=== PATIENT | female | born 1960 | race Caucasian/White ===

== ENCOUNTER 2020-09-02 09:42 | Inpatient (IN) | payer MEDICAID ==
[~2020-09-02] VITALS: Ht 167.7 cm; Wt 133.4 kg
[2020-09-02] MEDS ORDERED: guaiFENesin/CODEINE (ROBITUSSIN AC) 10ML UDC PO PRN (10:30)
[2020-09-02] MEDS ORDERED: FLEET ENEMA ADULT 1 EA BTL PR PRN (10:30)
[2020-09-02] MEDS ORDERED: ACETAMINOPHEN 500 MG TAB (TYLENOL) PO PRN (10:30)
[2020-09-02] MEDS ORDERED: ALPRAZolam 0.25 MG (XANAX) TAB PO PRN (10:30)
[2020-09-02] MEDS ORDERED: LOPERAMIDE 2 MG (IMODIUM) TABLET PO PRN (10:30)
[2020-09-02] MEDS ORDERED: diphenhydrAMINE 25 MG TAB (BENADRYL) PO PRN (10:30)
[2020-09-02] MEDS ORDERED: MELATONIN 3 MG TABLET PO PRN (10:30)
[2020-09-02] MEDS ORDERED: LACTULOSE SYRUP 10GM/15ML (ENULOSE) 30ML UDC PO PRN (10:30)
[2020-09-02] MEDS ORDERED: DOCUSATE SODIUM 100 MG (COLACE) CAP PO PRN (10:30)
[2020-09-02] MEDS ORDERED: ONDANSETRON 4 MG (ZOFRAN) ORAL DISSOLVE TAB PO PRN (10:30)
[2020-09-02] MEDS ORDERED: BISACODYL 10 MG SUPP (DULCOLAX) PR PRN (10:30)
[2020-09-02] MEDS ORDERED: CALCIUM CARBONATE 500 MG (TUMS) TAB.CHEW PO PRN (10:30)
[2020-09-03] MEDS: polyethylene glycoL POWDER 17 GM (MIRALAX) PACK PO SCH ×2 (08:53→20:01)
[2020-09-03] MEDS: ENOXAPARIN 40 MG/0.4 ML (LOVENOX) SYR SC SCH ×2 (08:54→21:05)
[2020-09-03] MEDS ORDERED: SEVE800T7 PO (11:14)
[2020-09-03] MEDS ORDERED: AMIO200T6 PO (11:14)
[2020-09-03] MEDS ORDERED: OMEG1CAP58 PO (11:14)
[2020-09-03] MEDS ORDERED: TORS20TA3 PO (11:14)
[2020-09-03] MEDS ORDERED: FAMO20TA3 PO (11:14)
[2020-09-03] MEDS ORDERED: MAGN400T50 PO (11:14)
[2020-09-03] MEDS ORDERED: ATOR20TA66 PO (11:14)
[2020-09-03] MEDS ORDERED: ACET-2267 PO (11:14)
[2020-09-03] MEDS ORDERED: NF-SODBICA PO (11:14)
[2020-09-03] MEDS ORDERED: METO-333 PO (11:14)
[2020-09-03] MEDS ORDERED: LIRA0.6P SQ (11:14)
[2020-09-03] MEDS ORDERED: CHOL500044 PO (11:14)
[2020-09-03] MEDS ORDERED: FOLIC ACID PO (11:14)
--- NOTE | 2020-09-03 11:18 | NUR ---
THE MED REC HAS BEEN ENTERED USING THE DISCHARGE ORDERS FROM [facility]- AFTER MEDICATIONS ARE CONTINUED I WILL SPEAK WITH THE PT AND MAKE ANY CHANGES TO THE MED REC/NOTES IF NEEDED
--- NOTE | 2020-09-03 13:39 | Progress Note ---
KASSY GOTTI MED STUDENT 09/03/20 1339: Progress Note Per review of outside records, Lizzie Erickson is a 60 YO female with history of Afib, aortic regurgitation, aortic stenosis, ascending aortic aneurysm, neuropathy, obesity, CKD, HTN, HLD, CVA, DM, and hypothyroidism who had aortic valve and ascending aorta replacement on 08/22 at [facility] in [place]. She is Jain, so she was given epogen for the operation. Pt's quaker does not allow RBC's, platelets, or FFP to be transfused, but cryoprecipitate, factor concentrate, and recombinant factor 7a are acceptable. Other surgical history includes cholecystectomy, hysterectomy, thyroid surgery, spine surgery, and tonsillectomy. After pt's surgery on 08/22, she had decreased balance, functional mobility, ADL independence, and safe judgment during ADL's. She required some assistance with standing up and with going to the bathroom. She normally walks with a Rollator walker at home but does have a wheelchair. After surgery, she was able to ambulate some with her walker with PT following behind with wheelchair. Pt is not able to ambulate as much as normal because she becomes fatigued and short of breath. She can tolerate less than 10 minutes of activity without change in vitals. Pt is from [place] and is agreeable with inpatient rehab at [facility] to regain strength, mobility, and independence. ASHLEY STEVE DO 09/03/20 [id number]: Supervisory-Addendum Brief Verification & Attestation Participated in pt care: history, MDM, physical Personally performed: exam, history, MDM, supervision of care Care discussed with: Medical Student Procedures: n/a Results interpretation: Verified all documentation Verification and Attestation of Medical Student E/M Service A medical student performed and documented this service in my presence. I reviewed and verified all information documented by the medical student and made modifications to such information, when appropriate. I personally performed the physical exam and medical decision making. Ashley Steve, Sep 03, 2020,21:05 KASSY GOTTI MED STUDENT Sep 03, 2020 13:39 ASHLEY STEVE DO Sep 03, 2020 21:05
--- NOTE | 2020-09-03 16:28 | NUR ---
Lizzie "Joseph Erickson admitted to room 230-1, with an admitting diagnosis of Thoracic Aortic Aneurism , on 09/03/20 from [facility] in [place], [place] via private vehicle, accompanied by .LIZZIE ERICKSON introduced to surroundings, call light, bed controls, phone, TV, temperature control, lights, meal times, smoking policy, visitor policy, side rail policy, bathrooms and showers. Patient Rights given to patient in the handbook.LIZZIE ERICKSON verbalizes understanding that [facility] is not responsible for the loss or damage to any personal effects or valuables that are kept in the patients posession during their hospitalization. The following Patient Care Plans were discussed with the : Discharge Planning,Impaired Mobility. LIZZIE ERICKSON verbalizes understanding of Interdisciplinary Patient Education. Patient and/or family were informed about the Rapid Response Team and its purpose. Patient received Patient Rights Booklet, which includes Privacy Act Statement and Data Collection Information Summary.
[2020-09-03 16:40] VITALS: BP 130/67
--- NOTE | 2020-09-03 16:54 | PM&R Post Admission Assessment ---
PM&R HP Date of Visit: Sep 03, 2020 Time of Visit: 17:00 History of Present Illness CC: Debility following complex CVS surgery HPI: This is a 60yoWF clinic patient of Juvencio Estevez MD in [place] who presents following a complex CVS surgery on 08/22/20 at [facility] in [place], [place]. Her case is even more complex given her oriental orthodox of JW and declines all red blood cell transfusions. Currently her pain is tolerable and I have continued all meds from previous hospital stay. BM moved the day before. Using IS. Patient needs to work on stamina and increasing ambulatory abilities. Hospital records from [facility] per ROBB SiegelII: Per review of outside records, Lizzie Erickson is a 60 YO female with history of Afib, aortic regurgitation, aortic stenosis, ascending aortic aneurysm, neuropathy, obesity, CKD, HTN, HLD, CVA, DM, and hypothyroidism who had aortic valve and ascending aorta replacement on 08/22 at [facility] in [place]. She is Oriental orthodox, so she was given epogen for the operation. Pt's oriental orthodox does not allow RBC's, platelets, or FFP to be transfused, but cryoprecipitate, factor concentrate, and recombinant factor 7a are acceptable. Other surgical history includes cholecystectomy, hysterectomy, thyroid surgery, spine surgery, and tonsillectomy. After pt's surgery on 08/22, she had decreased balance, functional mobility, ADL independence, and safe judgment during ADL's. She required some assistance with standing up and with going to the bathroom. She normally walks with a Rollator walker at home but does have a wheelchair. After surgery, she was able to ambulate some with her walker with PT following behind with wheelchair. Pt is not able to ambulate as much as normal because she becomes fatigued and short of breath. She can tolerate less than 10 minutes of activity without change in vitals. Pt is from [place] and is agreeable with inpatient rehab at [facility] to regain strength, mobility, and independence. Past Ouahwll-Yronnw-Uqjqnk Hx Past Med/Social Hx: Reviewed Nursing Past Med/Soc Hx, Reviewed and Corrections made Patient Social History Marrital Status: Employed/Student: retired ([employer]) Alcohol Use: Denies Use Smoking Status: Never a Smoker Past Medical History Surgeries: Cardiac (08/22/20) Cardiac: Atrial Fibrillation, High Cholesterol, Hypertension, Valvular Heart Disease Neurological: Neuropathy Genitourinary: Renal Failure Gastrointestinal: Gastroesophageal Reflux Musculoskeletal: Arthritis Endocrine: Hypothyroidsim, Diabetes, Non-Insulin dep PM&R Allergy/Meds/Data Review Allergies Coded Allergies: No Allergy Information Available (Unverified , 09/02/20) Home Medications Scheduled Amiodarone HCl (Amiodarone HCl), 200 MG PO BID, (Reported) Atorvastatin Calcium (Atorvastatin Calcium), 20 MG PO DAILY, (Reported) Cholecalciferol (Vitamin D3) (Vitamin D3), 125 MCG PO DAILY, (Reported) Famotidine (Acid Nail Puller (FAMOTIDINE)), 40 MG PO HS, (Reported) Liraglutide (Victoza 2-Wilmer), 1.2 MG SQ DAILY, (Reported) Magnesium Oxide (Magnesium Oxide), 400 MG PO HS, (Reported) Metoprolol Tartrate (Metoprolol Tartrate), 25 MG PO BID, (Reported) Copperhill-3 Fatty Acids/Fish Oil (Copperhill 3 1,000 mg Softgel), 1 EACH PO DAILY, (Reported) Sevelamer Carbonate (Renvela), 800 MG PO TIDWM, (Reported) Sodium Bicarbonate (Sodium Bicarbonate), 650 MG PO BID, (Reported) Torsemide (Torsemide), 20 MG PO DAILY, (Reported) [Folic Acid], 1 MG PO DAILY, (Reported) Scheduled PRN Acetaminophen (Tylenol Extra Strength), 1,000 MG PO Q6H PRN for PAIN-MILD (1-4), (Reported) Current Medications Current Medications Reviewed Review of Systems Constitutional: see HPI, malaise, weakness EENTM: no symptoms reported Respiratory: dyspnea on exertion Cardiovascular: chest pain Gastrointestinal: constipation Genitourinary: no symptoms reported Musculoskeletal: back pain Skin: no symptoms reported Psychiatric/Neurological: Anxiety, Depressed All Other Systems Reviewed Negative Unless Noted: Yes Physical Exam Physical Exam Vital Signs Capillary Refill : Height, Weight, BMI Height: '" Weight: lbs. oz. kg; BMI Method: General Appearance: No Apparent Distress, WD/WN, Chronically ill, Obese Eyes: Bilateral Eye Normal Inspection, Bilateral Eye PERRL HEENT: PERRL/EOMI, Normal ENT Inspection, Pharynx Normal Neck: Full Range of Motion, Normal Inspection, Non Tender, Supple, Carotid Bruit Respiratory: Chest Non Tender, Lungs Clear, Normal Breath Sounds, No Accessory Muscle Use, No Respiratory Distress Cardiovascular: Regular Rate, Rhythm, No Edema, No Gallop, No JVD, No Murmur, Normal Peripheral Pulses Gastrointestinal: Normal Bowel Sounds, No Organomegaly, No Pulsatile Mass, Non Tender, Soft Back: Normal Inspection, No CVA Tenderness, No Vertebral Tenderness Extremity: Normal Capillary Refill, Normal Inspection, Normal Range of Motion, Non Tender, No Calf Tenderness, No Pedal Edema Neurologic/Psychiatric: Alert, Oriented x3, No Motor/Sensory Deficits, Normal Mood/Affect, Abnormal Gait, Motor Weakness (generalized and slow all extremities 3/5) Skin: Normal Color, Warm/Dry Lymphatic: No Adenopathy PM&R Medical Assessment & Plan REHAB/MEDICAL ASSESSMENT AND PLAN: REHAB IMPAIRMENT GROUP: Debility following CVS surgery ETIOLOGIC DIAGNOSIS: Debility following CVS surgery The comorbidities that impact the patients function and/or functional outcome by: obesity, JW oriental orthodox declines all blood products, DM, hyponatremia on salt tablets REHAB PLAN: The patient is being admitted to our comprehensive inpatient rehabilitation facility and can tolerate the intensity of service consisting of at least: 180 minutes of therapy a day, 5 out of 7 days a week Rehab treatment will consist of: PT OT will focus on regaining strength and ambulatory skills along with fall risk prevention in order to return home with The patient/family has a good understanding of our discharge process and will benefit from an interdisciplinary inpatient rehabilitation program. The patient has potential to make improvement and is in need of at least two of the following multidisciplinary therapies including but not limited to physical, occupational, speech, and prosthetics and orthotics. Additionally the patient will need services from respiratory, nutritional services, wound care, p sychology, etc. (Customize this to each patient). Given the patients complex condition and risk of further medical complications, rehabilitation services cannot be safely or effectively provided at a lower level of care such as a half-way facility. BARRIERS TO DISCHARGE: Severe weakness ESTIMATED LOS: 10 days DISPOSITION: Home RELEVANT CHANGES SINCE PREADMISSION SCREENING: I have compared the patients medical and functional status at the time of the preadmission screening and there are: no changes PROGNOSIS: Good REHABILITATION GOALS: 1. PT OT will focus on regaining strength and ambulatory skills along with fall risk prevention in order to return home with All the above goals were reviewed with the patient and he/she is in agreement. By signing this document, I acknowledge that I have personally performed a full physical examination on this patient within 24 hours of admission to this inpatient rehabilitation facility and have determined the patient to be able to tolerate the above course of treatment at an intensive level for a reasonable period of time. I will be completing a detailed individualized Plan of Care for this patient by day #4 of the patients stay based upon the Preadmission Screen, the Post-Admission Evaluation, and the therapy evaluations. Admission Dx/Comorbidities: (1) Aortic aneurysm ICD Codes: I71.9 - Aortic aneurysm of unspecified site, without rupture (2) Refusal of blood transfusions as patient is Oriental orthodox ICD Codes: Z53.1 - Procedure and treatment not carried out because of patient's decision for reasons of belief and group pressure (3) Anemia ICD Codes: D64.9 - Anemia, unspecified (4) Hyponatremia ICD Codes: E87.1 - Hypo-osmolality and hyponatremia (5) Diabetes mellitus ICD Codes: E11.9 - Type 2 diabetes mellitus without complications (6) Hypertension ICD Codes: I10 - Essential (primary) hypertension (7) Hyperlipemia ICD Codes: E78.5 - Hyperlipidemia, unspecified (8) Hypothyroidism ICD Codes: E03.9 - Hypothyroidism, unspecified (9) Renal insufficiency ICD Codes: N28.9 - Disorder of kidney and ureter, unspecified Assessment/Plan Assessment and Plan Assess & Plan/Chief Complaint Assessment: Aortic regurgitation, aortic stenosis, ascending aortic aneurysm s/p aortic valve and ascending aorta replacement on 08/22 Neuropathy Obesity CKD HTN HLP CVA DM Hypothyroidism JW oriental orthodox so refusal of blood transfusions Anemia acute blood loss type Plan: IRF protocol Monitor hgb Cardiology consultation EKG Telemetry KRISTOPHER STEVE DO Sep 03, 2020 16:54
[2020-09-03] MEDS: SEVELAMER CARBONATE 800 MG TABLET (RENVELA) PO SCH (18:02)
[2020-09-03] MEDS: inSUlin ASPART (NovoLOG) 1 UNIT/0.01 ML (CHARGE PER UNIT) SC SCH ×2 (18:02→21:05)
[2020-09-03 20:00] VITALS: BP 127/80
[2020-09-03] MEDS: SENNA W/DOCUSATE (SENOKOT S) TABLET PO SCH (20:02)
[2020-09-03] MEDS: DOCUSATE SODIUM 100 MG (COLACE) CAP PO SCH ×2 (20:02→21:00)
[2020-09-03] MEDS: MAGNESIUM OXIDE (MAG-OX)400 MG TAB PO SCH (20:03)
[2020-09-03] MEDS: meTOprolol TARTRATE 25 MG (LOPRESSOR) TABLET PO SCH (20:03)
[2020-09-03] MEDS: SODIUM BICARBONATE 650 MG TABLET (NON-FORMULARY) PO SCH (20:03)
[2020-09-03] MEDS: AMIODARONE 200 MG (CORDARONE) TAB PO SCH (20:03)
[2020-09-03] MEDS: FAMOTIDINE 20 MG (PEPCID) TABLET PO SCH (20:07)
[2020-09-03] MEDS ORDERED: NON-FORMULARY MEDICATION 1 EA EA (Magnesium Oxide 400 MG) PO SCH (21:00)
[2020-09-03] MEDS: CATHETER FLUSH 10 ML SYR IV SCH (21:14)
[2020-09-04 05:03] VITALS: BP 107/55
[2020-09-04] MEDS: inSUlin ASPART (NovoLOG) 1 UNIT/0.01 ML (CHARGE PER UNIT) SC SCH ×4 (05:18→20:51)
[2020-09-04] MEDS: CATHETER FLUSH 10 ML SYR IV SCH ×3 (05:51→20:51)
[2020-09-04 05:53] LABS: BASOPHILS % (AUTO) 0 % (0-10); EOSINOPHILS # (AUTO) 0.3 10^3/uL (0.0-0.3); EOSINOPHILS % (AUTO) 3 % (0-10); HEMATOCRIT 23 % (35-52); HEMOGLOBIN 7.2 g/dL (11.5-16.0); LYMPHOCYTES % (AUTO) 18 % (12-44); MEAN CORPUSCULAR HEMOGLOBIN 29 pg (25-34); MEAN CORPUSCULAR HGB CONC 31 g/dL (32-36); MEAN CORPUSCULAR VOLUME 92 fL (80-99); MONOCYTES # (AUTO) 1.1 10^3/uL (0.0-1.0); MONOCYTES % (AUTO) 10 % (0-12); NEUTROPHILS # (AUTO) 7.7 10^3/uL (1.8-7.8); NEUTROPHILS % (AUTO) 69 % (42-75); PLATELET COUNT 315 10^3/uL (130-400); WHITE BLOOD COUNT 11.2 10^3/uL (4.3-11.0)
[2020-09-04 06:21] LABS: ALBUMIN 2.9 GM/DL (3.2-4.5); BILIRUBIN,TOTAL 0.3 MG/DL (0.1-1.0); CALCIUM 8.8 MG/DL (8.5-10.1); CREATININE SERUM 4.51 MG/DL (0.60-1.30); POTASSIUM 4.8 MMOL/L (3.6-5.0); TOTAL PROTEIN 6.7 GM/DL (6.4-8.2)
[2020-09-04 08:41] VITALS: BP 134/71
[2020-09-04] MEDS: SENNA W/DOCUSATE (SENOKOT S) TABLET PO SCH ×3 (08:43→20:46)
[2020-09-04] MEDS: AMIODARONE 200 MG (CORDARONE) TAB PO SCH ×2 (08:43→20:46)
[2020-09-04] MEDS: VITAMIN D3 125 MCG (5,000 UNITS) CAPSULE PO SCH (08:44)
[2020-09-04] MEDS: meTOprolol TARTRATE 25 MG (LOPRESSOR) TABLET PO SCH ×2 (08:44→20:46)
[2020-09-04] MEDS: TORSEMIDE 20 MG (DEMADEX) TAB PO SCH (08:44)
[2020-09-04] MEDS: SODIUM BICARBONATE 650 MG TABLET (NON-FORMULARY) PO SCH ×2 (08:44→20:46)
[2020-09-04] MEDS: OMEGA 3 (FISH OIL) 1000 MG CAP PO SCH (08:44)
[2020-09-04] MEDS: FOLIC ACID 1 MG TAB PO SCH (08:44)
[2020-09-04] MEDS: ENOXAPARIN 40 MG/0.4 ML (LOVENOX) SYR SC SCH ×2 (08:45→08:56)
[2020-09-04] MEDS: ACETAMINOPHEN 500 MG TAB (TYLENOL) PO PRN ×2 (08:45→20:45)
[2020-09-04] MEDS: DOCUSATE SODIUM 100 MG (COLACE) CAP PO SCH ×3 (08:45→20:46)
[2020-09-04] MEDS: SEVELAMER CARBONATE 800 MG TABLET (RENVELA) PO SCH ×3 (08:45→18:20)
[2020-09-04] MEDS: polyethylene glycoL POWDER 17 GM (MIRALAX) PACK PO SCH ×3 (08:55→20:46)
[2020-09-04] MEDS ORDERED: NON-FORMULARY MEDICATION 1 EA EA ([Folic Acid] 1 MG) PO SCH (09:00)
[2020-09-04] MEDS ORDERED: NON-FORMULARY MEDICATION 1 EA EA (Liraglutide (Victoza 2-Pak) 1.2 MG) SQ SCH (09:00)
--- NOTE | 2020-09-04 09:00 | NUR ---
Niki not scanning, Pharmacy notified and barcode fixed.
--- NOTE | 2020-09-04 09:04 | Consultation-Cardiology ---
HPI-Cardiology Cardiology Consultation Date of Consultation 09/04/20 Date of Admission Time Seen by Provider: 08:10 Indication: AV replacement, AAA repair, PAF HPI Patient is a 60-year-old female with history of atrial fibrillation, bicuspid aortic stenosis, aortic regurgitation, ascending aortic aneurysm, chronic kidney disease, hypertension, hyperlipidemia, diabetes mellitus and hypothyroidism. Underwent aortic valve and ascending aorta replacement on August [address] [facility] in [place]. Patient is an inpatient rehabilitation for secondary to generalized weakness and decreased balance after surgery. She denies any chest pain, dyspnea, dizziness or lightheadedness. Noted to be anemic with hemoglobin of 7.2. She is Restorationist, does not allow blood products. Has history of chronic kidney disease, stage IV and follows with Dr. Lynn in [place]. Reports she required dialysis times one post operatively. Reports baseline creatinine is around 3. Is complaining of some bilateral lower extremity peripheral edema. Home Medications & Allergies Allergies: Coded Allergies: No Allergy Information Available (Unverified , 09/02/20) Home Medication List Reviewed: Yes VLD-Heppcy-Ykyvjq Hx Patient Social History Marital Status: Employed/Student: retired Alcohol Use: Denies Use Recreational Drug Use: No Smoking Status: Never a Smoker Type Used: Cigarettes Recent Foreign Travel: No Recent Infectious Disease Expo: No Recent Hopitalizations: Yes Physical Abuse Screen: No Sexual Abuse: No Immunizations Up To Date Date of Pneumonia Vaccine: Aug 14, 2018 Date of Influenza Vaccine: Sep 03, 2020 Past Medical History Bicuspid aortic valve, aortic stenosis, aortic regurgitation, atrial fibrillation, chronic kidney disease, hypertension, hyperlipidemia, diabetes mellitus Family Medical History Family History: Alzheimer's disease 19 FATHER Completed stroke 19 FATHER Dysphasia Glaucoma 19 MOTHER Hypercholesterolemia 19 FATHER 19 MOTHER Hypertension 19 FATHER Review of Systems-General Review of Systems Constitutional: see HPI, malaise, weakness EENTM: no symptoms reported Respiratory: dyspnea on exertion Cardiovascular: chest pain, edema Gastrointestinal: constipation Genitourinary: no symptoms reported Musculoskeletal: back pain Skin: no symptoms reported Psychiatric/Neurological: Anxiety, Depressed All Other Systems Reviewed Negative Unless Noted: Yes Reviewed Test Results Reviewed Test Results Lab Laboratory Tests 09/03/20 17:37: Glucometer 275H 09/03/20 21:01: Glucometer 260H 09/04/20 05:16: Glucometer 174H 09/04/20 05:32: Sodium Level 137, Potassium Level 4.8, Chloride Level 100, Carbon Dioxide Level 24, Anion Gap 13, Blood Urea Nitrogen 124*H, Creatinine 4.51H, Estimat Glomerular Filtration Rate 10, BUN/Creatinine Ratio 27, Glucose Level 163H, Ca lcium Level 8.8, Corrected Calcium 9.7, Total Bilirubin 0.3, Aspartate Amino Transf (AST/SGOT) 9, Alanine Aminotransferase (ALT/SGPT) 9, Alkaline Phosphatase 121, Total Protein 6.7, Albumin 2.9L 09/04/20 05:35: White Blood Count 11.2H, Red Blood Count 2.51L, Hemoglobin 7.2L, Hematocrit 23L, Mean Corpuscular Volume 92, Mean Corpuscular Hemoglobin 29, Mean Corpuscular Hemoglobin Concent 31L, Red Cell Distribution Width 16.4H, Platelet Count 315, Mean Platelet Volume 10.0, Immature Granulocyte % (Auto) 1, Neutrophils (%) (Auto) 69, Lymphocytes (%) (Auto) 18, Monocytes (%) (Auto) 10, Eosinophils (%) (Auto) 3, Basophils (%) (Auto) 0, Neutrophils # (Auto) 7.7, Lymphocytes # (Auto) 2.0, Monocytes # (Auto) 1.1H, Eosinophils # (Auto) 0.3, Basophils # (Auto) 0.0, Immature Granulocyte # (Auto) 0.1 ECG Impression ECG Initial ECG Rhythm: A Fib/Flutter Physical Exam Physical Exam Vital Signs Vital Signs - First Documented 09/03/20 16:40 Temp 37.0 Pulse 108 Resp 20 B/P (MAP) 130/67 (88) Pulse Ox 95 O2 Delivery Room Air Capillary Refill : Less Than 3 Seconds Height, Weight, BMI Height: '" Weight: lbs. oz. kg; 102.76 BMI Method: General Appearance: No Apparent Distress, WD/WN, Chronically ill, Obese HEENT: PERRL/EOMI, Normal ENT Inspection, Pharynx Normal Neck: Full Range of Motion, Normal Inspection, Non Tender, Supple, Carotid Bruit Respiratory: Chest Non Tender, Lungs Clear, Normal Breath Sounds, No Accessory Muscle Use, No Respiratory Distress Cardiovascular: No Gallop, No JVD, Normal Peripheral Pulses, Systolic Murmur, Irregularly Irregular, Other (+2-3 BLE edema) Gastrointestinal: Normal Bowel Sounds, No Organomegaly, No Pulsatile Mass, Non Tender, Soft Rectal: Deferred Back: Normal Inspection, No CVA Tenderness, No Vertebral Tenderness Extremity: Normal Capillary Refill, Normal Inspection, Normal Range of Motion, Non Tender, No Calf Tenderness, Pedal Edema Neurologic/Psychiatric: Alert, Oriented x3, No Motor/Sensory Deficits, Normal Mood/Affect, Abnormal Gait, Motor Weakness Skin: Normal Color, Warm/Dry Lymphatic: No Adenopathy A/P-Cardiology Admission Diagnosis Bicuspid aortic valve stenosis, status post aortic valve replacement Ascending aortic aneurysm, status post replacement Atrial fibrillation Acute on chronic kidney disease Assessment/Plan Bicuspid aortic valve stenosis, aortic regurgitation, ascending aortic aneurysm, status post aortic valve and AAA replacement done on August 22 at [facility] in [place]. Dressing is clean dry and intact. We will continue to monitor. Atrial fibrillation, currently maintained on amiodarone 200 mg twice daily. Currently rate controlled atrial fibrillation, unable to tolerate oral anticoagulation at this time secondary to her anemia. Patient's primary supervisor sandblaster is Dr. Felix Jackson on chronic kidney disease, patient reports she has stage IV chronic continue disease follows with Dr. Lynn. Creatinine 4.5 this morning, reports baseline creatinine usually around 3. Patient did require hemodialysis times one post operatively. Continue to monitor renal function closely. Anemia, hemoglobin 7.2, continue to monitor H&H closely. Jehovah witness, does not allow blood products Hypertension, controlled, continue to monitor. Hyperlipidemia, continue to monitor lipids outpatient Diabetes mellitus, managed per medical services Hypothyroidism, managed by medical services. History of CVA in the past Obesity Thank you for allowing us to participate in the management of Ms. Erickson. This is Claire Shea PA-C, acting as a scribe for Dr. Marcial. Patient was seen and evaluated with Claire, examination performed, management plan was discussed, agree with the current scribed note, I made few changes to the note using Italic font Patient was seen at bedside, sitting comfortably, has significant pedal edema, systolic murmur at the left sternal border, chest wound is covered I am hesitant to initiate aggressive diuresis at this time due to her underlying chronic renal insufficiency. Continue to monitor blood pressure, monitor H&H on a daily basis and monitor electrolytes daily. Clinical Quality Measures DVT/VTE Risk/Contraindication: Risk Factor Score Per Nursin RFS Level Per Nursing on Admit: 4+=Very High CLAIRE KAPADIA Sep 04, 2020 9:04 am RICHARD MARCIAL MD Sep 04, 2020 10:27 am
--- NOTE | 2020-09-04 10:57 | Physical Therapy Evaluation ---
PT Evaluation-General Medical Diagnosis Admission Date Sep 03, 2020 at 16:28 Medical Diagnosis: Thoracic Aortic Aneurism Onset Date: Aug 22, 2020 Therapy Diagnosis Therapy Diagnosis: Impaired mobility and ROM Precautions Precautions/Isolations: Fall Prevention, Standard Precautions Weight Bear Status Full Weight Bearing Full Weight Bearing Referral Physician: Tra Reason for Referral: Evaluation/Treatment Medical History Pertinent Medical History: Atrial Fib, DM, HTN, Neuropathy Additional Medical History Bicuspid aortic valve, aortic stenosis, aortic regurgitation, atrial fibrillation, chronic kidney disease, hypertension, hyperlipidemia, diabetes mellitus Reviewed History: Yes Social History Home: Single Level Current Living Status: Spouse (+eldest daughter) Entry Into Home: Stairs With Railing PT Steps Into Home: 2 PT Steps Inside Home: 2 Add-on in house has a 2 step entry; pt needs access to this area for bedroom and bathroom. Prior Prior Level of Function SCALE: Activities may be completed with or without assistive devices. 9-Qfnizdtktl-qkttzrz completes the activity by him/herself with no assistance from a helper. 5-Set-up or Clean-up Assistance-helper sets up or cleans up; patient completes activity. [place] assists only prior to or following the activity. 4-Supervision or Touching Assistance-helper provides verbal cues and/or touching/steadying and/or contact guard assistance as patient completes activit y. Assistance may be provided throughout the activity or intermittently. 3-Partial/Moderate Assistance-helper does LESS THAN HALF the effort. [place] lifts, holds or supports trunk or limbs, but provides less than half the effort. 2-Substantial/Maximal Assistance-helper does MORE THAN HALF the effort. [place] lifts or holds trunk or limbs and provides more than half the effort. 9-Vigbziqnv-tgxwpg does ALL the effort. Patient does none of the effort to complete the activity. Or, the assistance of 2 or more helpers is required for the patient to complete the activity. If activity was not attempted, code reason: 7-Patient Refused. 9-Not Applicable-not attempted and the patient did not perform the activity before the current illness, exacerbation or injury. 10-Not Attempted due to Environmental Limitations-(lack of equipment, weather restraints, etc.). 88-Not Attempted due to Medical Conditions or Safety Concerns. Bed Mobility: 6 Transfers (B,C,W/C): 6 Gait: 6 Stairs: 6 Wheelchair Mobility: 6 Indoor Mobility (Ambulation): Independent Stairs: Independent Prior Devices Use: Manual wheelchair, Motorized scooter, Walker (four wheeled walker) PT Evaluation-Current Subjective Pt presents sitting upright in recliner with OT. Pt agrees to PT. Pt reports unrated pain at sternal incision site. Pt/Family Goals Return to baseline activity Objective Patient Orientation: Person, Place, Time, Eyes Open, Situation ROM/Strength ROM Lower Extremities PROM WFL AROM limited in R ankle; foot remain in supination Strength Lower Extremities R hip flex 4/5 L hip flex 3+/5 B knee flex/ext 4/5 Sensory Vision: Wears Glasses Hearing: Functional Sensation Right Lower Extremit: Impaired Sensation Left Lower Extremity: Impaired Sensation Lower Extremities BLE sensation impaired to light touch; pt unable to feel L4-S1; pt reports neuropathy Transfers Roll Left & Right (QC): 6 Sit to Lying (QC): 3 Lying to Sitting/Side of Bed(Q: 3 Sit to Stand (QC): 4 Chair/Iuy-ak-Vwjad Xfer(QC): 4 Toilet Transfer (QC): 4 Car Transfer (QC): 4 Pt independent in rolling with use of handrails at side of bed. Pt requires mod assist with sit to lying; therapist guided LEs into bed and assisted with trunk movement to lay straight in bed, therapist guided shoulder. Pt sat from lying to EOB with min assist. Pt complete sit to stand, chair, car, and toilet transfers with CGA; pt was not able to use UE support during these transfers due to sternal precautions. Gait Does the Patient Walk?: Yes Mode of Locomotion: Walk Anticipated Mode of Locomotion: Walk Walk 10 feet (QC): 4 Walk 50 ft with 2 Turns(QC): 4 Walk 150 ft (QC): 88 Walking 10ft/uneven surface-QC: 4 Distance: 100' Gait Assistive Device: FWW Wheelchair Training Does the Pt Use a Wheelchair?: Yes Distance: 80' Wheel 50 ft with 2 turns (QC): 4 Wheel 150 ft (QC): 4 Type of Wheelchair: Manual SBA, used feet to pull chair Stairs #of Steps: 1 1 Step (curb) (QC): 4 4 Steps (QC): 88 12 Steps (QC): 88 Walking Assistive Device: Walker Balance Sitting Static: Normal Sitting Dynamic: Normal Standing Static: Good Standing Dynamic: Good Picking up an Object (QC): 88 Treatment bathing, dressing Assessment/Needs Pt fatigues easily with activity. Co-treated with OT due to patient's limitation with strength, mobility, and coordination of UEs and LEs with activity. PT assisted with transfers and ambulation while OT assisted with bathing and dressing. Rehab Potential: Good PT Short Term Goals Short Term Goals Time Frame: Sep 11, 2020 Roll Left & Right: 6 Sit to lyin Lying to sitting on side of be: 6 Sit to stand: 5 Chair/uon-xf-zndyv transfer: 5 Toilet transfer: 5 Picking up objects: 4 PT Extras Casting Director Goals Extras Casting Director Goals PT Extras Casting Director Goals Time Frame: Sep 18, 2020 Roll Left & Right (QC): 6 Sit to Lying (QC): 6 Lying-Sitting on Side/Bed(QC): 6 Sit to Stand (QC): 6 Chair/Qem-pv-Xxxkc Xfer(QC): 6 Toilet Transfer (QC): 6 Car Transfer (QC): 6 Does the Patient Walk: Yes Walk 10 feet (QC): 6 Walk 50ft with 2 Turns (QC): 6 Walk 150 ft (QC): 6 Walking 10ft on Uneven Surface: 6 1 Step (curb) (QC): 6 4 Steps (QC): 6 12 Steps (QC): 88 Picking up an Object (QC): 88 Does the Pt use WC or Scooter?: Yes Wheel 50 feet with 2 turns (QC: 6 Type: Manual Wheel 150 feet: 6 PT Plan Problem List Problem List: Activity Tolerance, Functional Strength, Safety, Balance, Gait, Transfer, Bed Mobility, ROM Treatment/Plan Treatment Plan: Continue Plan of Care Treatment Plan: Bed Mobility, Education, Functional Activity Maira, Functional Strength, Group Therapy, Gait, Safety, Therapeutic Exercise, Transfers Treatment Duration: Sep 18, 2020 Frequency: Modified Program (IRF) (28/05) Estimated Hrs Per Day: 1.5 hours per day Patient and/or Family Agrees t: Yes Safety Risks/Education Patient Education: Gait Training, Transfer Techniques, Steps, Correct Positioning, W/C Management, Safety Issues Teaching Recipient: Patient Teaching Methods: Demonstration, Discussion Response to Teaching: Reinforcement Needed Discharge Recommendations Plan Pt will work on bed mobility, balance and gait training, transfers, and therapeutic exercises to improve strength and ROM. Time/GCodes Time In: 1000 Time Out: 1100 Total Billed Treatment Time: 60 Total Billed Treatment 1 visit EVM 10' FA 50' PT Eval [id number]; co-treated with OT [id number]; PT assisted with transfers and ambulation while OT assisted with bathing and dressing. LITTLE LOMAS PT Sep 04, 2020 10:57
--- NOTE | 2020-09-04 11:40 | PM&R Progress Note ---
Subjective HPI/CC On Admission Date Seen by Provider: Sep 04, 2020 Time Seen by Provider: 12:00 Subjective/Events-last exam BUN and Creatinine are very high at 124/4.5 but this chronic Bicarb is 24 Hgb 7.2 Incision looks good Settling in to inpatient rehab well Didnt sleep well Body pillow will be brought in by her family Overall settling in well Conferred with RN Reviewed therapy notes Checked meds and labs Review of Systems General: Fatigue Pulmonary: Dyspnea Cardiovascular: Edema Objective Exam Vital Signs Vital Signs Date Time Temp Pulse Resp B/P (MAP) Pulse Ox O2 Delivery O2 Flow Rate FiO2 09/04/20 20:44 75 184/81 (115) 09/04/20 17:07 36.2 18 97 Room Air Capillary Refill : Less Than 3 Seconds General Appearance: No Apparent Distress, WD/WN, Chronically ill, Obese HEENT: PERRL/EOMI, Normal ENT Inspection, Pharynx Normal Neck: Full Range of Motion, Normal Inspection, Non Tender, Supple, Carotid Bruit Respiratory: Chest Non Tender, Lungs Clear, Normal Breath Sounds, No Accessory Muscle Use, No Respiratory Distress Cardiovascular: No Gallop, No JVD, Normal Peripheral Pulses, Systolic Murmur, Irregularly Irregular, Other (+2-3 BLE edema) Gastrointestinal: Normal Bowel Sounds, No Organomegaly, No Pulsatile Mass, Non Tender, Soft Rectal: Deferred Back: Normal Inspection, No CVA Tenderness, No Vertebral Tenderness Extremity: Normal Capillary Refill, Normal Inspection, Normal Range of Motion, Non Tender, No Calf Tenderness, Pedal Edema Neurologic/Psychiatric: Alert, Oriented x3, No Motor/Sensory Deficits, Normal Mood/Affect, Abnormal Gait, Motor Weakness Skin: Normal Color, Warm/Dry Lymphatic: No Adenopathy Results/Procedures Lab Laboratory Tests 09/04/20 05:32 09/04/20 05:35 Patient resulted labs reviewed. FIM Transfers Therapy Code Descriptions/Definitions Functional Romance Measure: 0=Not Assessed/NA 4=Minimal Assistance 1=Total Assistance 5=Supervision or Setup 2=Maximal Assistance 6=Modified Romance 3=Moderate Assistance 7=Complete IndependenceSCALE: Activities may be completed with or without assistive devices. 1-Qgmavbinxf-qzgfmxn completes the activity by him/herself with no assistance from a helper. 5-Set-up or Clean-up Assistance-helper sets up or cleans up; patient completes activity. [place] assists only prior to or following the activity. 4-Supervision or Touching Assistance-helper provides verbal cues and/or touching/steadying and/or contact guard assistance as patient completes activity. Assistance may be provided throughout the activity or intermittently. 3-Partial/Moderate Assistance-helper does LESS THAN HALF the effort. [place] lifts, holds or supports trunk or limbs, but provides less than half the effort. 2-Substantial/Maximal Assistance-helper does MORE THAN HALF the effort. [place] lifts or holds trunk or limbs and provides more than half the effort. 4-Etlivsrqp-fsdcqr does ALL the effort. Patient does none of the effort to complete the activity. Or, the assistance of 2 or more helpers is required for the patient to complete the activity. If activity was not attempted, code reason: 7-Patient Refused. 9-Not Applicable-not attempted and the patient did not perform the activity before the current illness, exacerbation or injury. 10-Not Attempted due to Environmental Limitations-(lack of equipment, weather restraints, etc.). 88-Not Attempted due to Medical Conditions or Safety Concerns. Assessment/Plan Assessment and Plan Assess & Plan/Chief Complaint Assessment: Aortic regurgitation, aortic stenosis, ascending aortic aneurysm s/p aortic valve and ascending aorta replacement on 08/22 Neuropathy Obesity CKD HTN HLP CVA DM Hypothyroidism JW advent so refusal of blood transfusions Anemia acute blood loss type Plan: IRF protocol Monitor hgb Cardiology consultation EKG Telemetry 09/04/20: Monitor creatinine Cardiology consultation Pain control Edema management (1) Aortic aneurysm (2) Refusal of blood transfusions as patient is Anabaptist (3) Anemia (4) Hyponatremia (5) Diabetes mellitus (6) Hypertension (7) Hyperlipemia (8) Hypothyroidism (9) Renal insufficiency KRISTOPHER STEVE DO Sep 04, 2020 11:40
--- NOTE | 2020-09-04 11:54 | Occupational Therapy Eval ---
OT Evaluation-General/PLF Medical Diagnosis Admission Date Sep 03, 2020 at 16:28 Medical Diagnosis: aortic valve and ascending aorta replacement Onset Date: Aug 22, 2020 Therapy Diagnosis Therapy Diagnosis: decreased ADL status, weakness Precautions Precautions/Isolations: Fall Prevention, Standard Precautions Comments sternal precautions (no pushing/pulling/lifting >10lbs), do not submerge incision in water Referral Physician: Tra Dunn Reason: Evaluation/Treatment Medical History Pertinent Medical History: Atrial Fib, Arthritis, CVA, DM, GERD, HTN, Neuropathy Additional Medical History aortic regurgitation, aortic stenosis, ascending aortic aneurysm, neuropathy, obesity, CKD, HTN, CVA, DM, HLD, hypothyroidism, renal failure, GERD, arthritis, cholecystectomy, hysterectomy, thyroid surgery, spine surgery. Current History severe symptomatic bicuspid, aortic stenosis, ascending aortic aneurysm. 08/22/2020 s/p aortic valve replacement via mini sternotomy with repair of ascending aortic aneurysm, [place] Reviewed History: Yes Social History Home: Single Level Current Living Status: Spouse (+eldest daughter) Entry Into Home: Stairs With Railing Steps Into Home: 2 Steps Inside Home: 2 ADL-Prior Level of Function SCALE: Activities may be completed with or without assistive devices. 9-Atuuewtblr-uxyjeqj completes the activity by him/herself with no assistance from a helper. 5-Set-up or Clean-up Assistance-helper sets up or cleans up; patient completes activity. [place] assists only prior to or following the activity. 4-Supervision or Touching Assistance-helper provides verbal cues and/or touching/steadying and/or contact guard assistance as patient completes acti vity. Assistance may be provided throughout the activity or intermittently. 3-Partial/Moderate Assistance-helper does LESS THAN HALF the effort. [place] lifts, holds or supports trunk or limbs, but provides less than half the effort. 2-Substantial/Maximal Assistance-helper does MORE THAN HALF the effort. [place] lifts or holds trunk or limbs and provides more than half the effort. 3-Bvheqyboz-bmfihu does ALL the effort. Patient does none of the effort to complete the activity. Or, the assistance of 2 or more helpers is required for the patient to complete the activity. If activity was not attempted, code reason: 7-Patient Refused. 9-Not Applicable-not attempted and the patient did not perform the activity before the current illness, exacerbation or injury. 10-Not Attempted due to Environmental Limitations-(lack of equipment, weather restraints, etc.). 88-Not Attempted due to Medical Conditions or Safety Concerns. ADL PLOF Comments Pt reports living with her and eldest daughter in a single story house, she has a concrete slab porch she has to step onto to get into the house with a hand rail, then another small threshold at the door to get into house. Pt does not have a grab bar/rail at the doorway but is able to get in by holding onto the door frame. There are 2 steps within the house with grab bars on each side leading into the newer edition of the house where pt's bedroom and bathroom are located. Pt indicates she was able to complete dressing herself, and can bathe herself once her daughter helps her into/out of bathtub. Pt typically sits in the bottom of the bathtub and takes a bath, and is able to roll left/right to perform pericare and wash buttocks. Pt also has a walk in shower with a shower chair that she can use when she returns home. Pt also indicates she is able to make simple meals but fatigues quickly requiring rest breaks. Pt is independent with functional mobility around her house using 4WW and uses a manual w/c or motorized scooter for community mobility. Self Care: Needed Some Help Functional Cognition: Independent DME/Equipment: Bath Chair, Tub, Tub/Shower DME/Equipment Comments 4WW, w/c, motorized scooter. OT Current Status Subjective Pt seated in recliner, agreeable to OT tx. Pt reports slight pain at incision bu t does not provide pain rating. Mental Status/Objective Patient Orientation: Person, Place, Time, Situation Current Glasses/Contacts: Yes Hearing Aids: No Dentures/Partials: No Hand Dominance: Right Upper Extremity ROM WFL, BUE shoulder flexion to approx 160 degrees, pt able to touch back of head with hands. Upper Extremity Coordination WFL Upper Extremity Sensation Pt indicates tingling/numbness in bilateral fingertips Upper Extremity Strength not formally tested due to sternal precautions. Pt able to move through full range of motion against gravity, no resistance applied, MMT grossly 3/5 ADL-Treatment Eating (QC): 6 (Pt reports having no difficulty cutting food, bringing food to mouth, and eating at breakfast time) Oral Hygiene (QC): 5 (set up/clean up at w/c.) Shower/Bathe Self (QC): 3 (Sponge bath complete. Pt able to wash upper body, chest, abdomen, and lower body seated EOB. Pt required mod A sit to supine in order to perform pericare and to wash buttocks. Min A to sit back EOB to continue with sponge bath.) Upper Body Dressing (QC): 5 (set up assist) Lower Body Dressing (QC): 3 (Min A with threading underwear, pt able to thread pants and manage up in stand at FWW with CGA) On/Off Footwear (QC): 3 (Mod A, pt required assistance doffing L sock, then assistance for orientation of gripper socks after pt donned.) Toileting Hygiene (QC): 4 (CGA, pt able to manage clothing and perform hygiene.) Pt required increased time with ADLs and frequent rest breaks. Other Treatments [id number] OT evaluation: Pt seated in recliner, OT educated pt on purpose and benefits of OT, she verbalized understanding. Pt then provided information about PLOF and home set up, then participated in UE screen. [id number] OT/PT cotreat: OT/PT cotreat due to the skill of 2 clinicians required which a vocational rehabilitation counselor could not perform in order to coordinate UE/LEs, decrease fall risk, monitor O2 saturation during tx, and for safety with functional mobility/transfers. OT focused on UE placement, cues for sequencing and safety, ADLs, while PT focused on LE placement, overall gross movements, and transfers. Pt stood from recliner, using pillow against her chest as she stood, with CGA. Pt transferred to w/c and self-propelled w/c to car simulator. Pt transferred from w/c to car simulation with skilled cues for safety. Once seated pt required rest break to recover. Pt then transferred out of car, over uneven surface mat, up/down 1 step, and into w/c. Pt's O2 sat remained at 99% after activity on RA. Pt then stood at FWW and ambulated back to her room with w/c follow, transferring onto toilet. Pt completed toileting, then transferred to EOB, CGA. Pt completed sponge bath at EOB, washing upper body, then she requested to transfer supine in order to perform pericare and to wash buttocks. Pt required moderate assistance sit to supine, with assistance with her trunk. Pt rolled side to side to continue washing. Pt transferred supine to sit EOB with min A, took a rest break, then continued washing lower body. Pt reports fatigue with task, requiring increased time and frequent rest breaks. Pt then donned clothes, and transferred to recliner. [id number] OT tx: Pt able to comb hair with set up assist, and rest breaks to recover due to tangles in her hair. Pt then brushed her teeth at recliner level with set up assistance. OT educated pt on rehab process and expectations, she verbalized understanding. Post OT tx, pt seated in recliner, call light in reach and all needs met. Education OT Patient Education: Correct positioning, Energy conservation, Modified ADL techniques, Progress toward Goal/Update tx plan, Purpose of tx/functional activities, Rehab process, Safety issues, Transfer techniques Teaching Recipient: Patient Teaching Methods: Discussion Response to Teaching: Verbalize Understanding OT Plasma Processing Centrifuge Operator Goals [facility] Goals Time Frame: Sep 19, 2020 Eating (QC): 6 Oral Hygiene (QC): 6 Toileting Hygiene (QC): 6 Shower/Bathe Self (QC): 6 Upper Body Dressing (QC): 6 Lower Body Dressing (QC): 6 On/Off Footwear (QC): 6 Additional Goals: 1-Demonstrate ADL Tasks, 2-Verbalize Understanding, 3- ImproveStrength/Maira 1=Demonstrate adherence to instructed precautions during ADL tasks. 2=Patient will verbalize/demonstrate understanding of assistive devices/modifications for ADL. 3=Patient will improve strength/tolerance for activity to enable patient to perform ADL's. OT Education/Plan Problem List/Assessment Assessment: Decreased Activ Tolerance, Decreased UE Strength, Impaired Bed Mobility, Impaired Funct Balance, Impaired I ADL's, Impaired Self-Care Skills Discharge Recommendations Plan/Recommendations: Continue POC Treatment Plan/Plan of Care Patient would benefit from OT for education, treatment and training to promote independence in ADL's, mobility, safety and/or upper extremity function for ADL's. Plan of Care: ADL Retraining, Functional Mobility, Group Exercise/Act as Ind, UE Funct Exercise/Act Treatment Duration: Sep 19, 2020 Frequency: Modified Program (IRF) (28/05) Estimated Hrs Per Day: 1.5 hours per day Rehab Potential: Good Time/GCodes Start Time: 09:50 Stop Time: 11:30 Total Time Billed (hr/min): 90 Billed Treatment Time [id number] OT evaluation, [id number] OT/PT cotreat, [id number] OT tx. 1, EVM (10'), FA (20'), ADL 4 (60') ZARIA BRYANT OT Sep 04, 2020 11:54
--- NOTE | 2020-09-04 15:14 | NUR ---
RD ASSESSMENT PMHx: afib; hypercholesterolemia; HTN; GERD; DM; hypothyroidism; renal failure; PT INTERACTION: Pt was awake and pleasant during nutrition assessment. Pt states current appetite is "okay." Note avg PO intake 100% x2meal, per chart review. Pt states following a low-CHO diet at home, and has no issues with chewing/swallowing food. Pt states no recent issues with nausea, vomiting, or diarrhea. Pt states some recent issues with constipation, and that her last BM was 2-3 days ago. Note pt currently on bowel regimen of colace BID; senna BID; and miralax BID, per chart review. Pt states no recent wt changes. Note unable to determine recent wt hx, per chart review. Pt states current DM management is pretty good, and that her last HbA1c was 5.5 (unsure of when it was last taken). Note unable to determine recent HbA1c, per chart review. ABNORMAL NUTRITION-RELATED LAB VALUES LOW: alb 2.9 HIGH: BUN 124; cr 4.51; glu 163 Est. kcal needs: 1475 kcal | 25 kcal/kg IBW, based on IBW of 59.1 kg (130#) Est. Pro needs: 59 g Pro | 1.0 g Pro/kg IBW PES STATEMENT: Given current PO intake, no nutrition diagnosis at this time (NO-1.1) INTERVENTION: Continue with current diet order of CHO 75g/m 1snack diet. Pt may benefit from more restrictive CHO diet if blood glucose levels become elevated. Offered diet education on DM management, but pt declined at this time. Will attempt to offer again prior to discharge. Will continue to follow and reassess as pt needs, intake, and status change. Jaci Rojas, MS RD LD
--- NOTE | 2020-09-04 15:16 | Physical Therapy Daily Note ---
PT Daily Note-Current Subjective Pt presents sitting upright in recliner. Pt agrees to PT. Pt reports 4/10 pain at sternal incision. Appearance At end of PT treatment patient request using restroom; pt is able to pull pants up/down and wipe self as well as stand at sink to wash hands. After toileting pt returns to recliner and given access to tray, call button and all needs have been met. Mental Status Patient Orientation: Person, Place, Time, Eyes Open, Situation Pt utilizes chest pillow with sit to stands Transfers SCALE: Activities may be completed with or without assistive devices. 1-Befnzozmrh-mdllvcw completes the activity by him/herself with no assistance from a helper. 5-Set-up or Clean-up Assistance-helper sets up or cleans up; patient completes activity. [place] assists only prior to or following the activity. 4-Supervision or Touching Assistance-helper provides verbal cues and/or touching/steadying and/or contact guard assistance as patient completes activity. Assistance may be provided throughout the activity or intermittently. 3-Partial/Moderate Assistance-helper does LESS THAN HALF the effort. [place] lifts, holds or supports trunk or limbs, but provides less than half the effort. 2-Substantial/Maximal Assistance-helper does MORE THAN HALF the effort. [place] lifts or holds trunk or limbs and provides more than half the effort. 1-Citgonybx-abhwol does ALL the effort. Patient does none of the effort to complete the activity. Or, the assistance of 2 or more helpers is required for the patient to complete the activity. If activity was not attempted, code reason: 7-Patient Refused. 9-Not Applicable-not attempted and the patient did not perform the activity before the current illness, exacerbation or injury. 10-Not Attempted due to Environmental Limitations-(lack of equipment, weather restraints, etc.). 88-Not Attempted due to Medical Conditions or Safety Concerns. Sit to Stand (QC): 3 Chair/Viz-sw-Hjfze Xfer(QC): 3 Toilet Transfer (QC): 3 Weight Bearing Full Weight Bearing Full Weight Bearing Gait Training Does the Patient Walk?: Yes Distance: 75'x4 Walk 10 feet (QC): 4 Walk 50 ft with 2 Turns(QC): 4 Gait Assistive Device: FWW Pt ambulates with step-through pattern; pt step on lateral side of R foot. Pt fatigues and requires seated rest between her room and rehab gym (at approx 75'). Exercises Seated Therapy Exercises: Ankle pumps, Long arc quads, Hip flexion Seated Reps: 20 Treatments Gait training and LE strengthening Assessment Current Status: Good Progress Pt will start walking at a brisk pace then decreases speed throughout ambulation until fatigued and short of breath that she requires a seated rest break. Pt able to see obstacle in bathroom and redirected self to recliner so that she could safely rest while a safe path was cleared for her. PT Short Term Goals Short Term Goals Time Frame: Sep 11, 2020 Roll Left & Right: 6 Sit to lyin Lying to sitting on side of be: 6 Sit to stand: 5 Chair/nmv-ss-chjyu transfer: 5 Toilet transfer: 5 Picking up objects: 4 PT Load Dropper Goals Load Dropper Goals PT Load Dropper Goals Time Frame: Sep 18, 2020 Roll Left & Right (QC): 6 Sit to Lying (QC): 6 Lying-Sitting on Side/Bed(QC): 6 Sit to Stand (QC): 6 Chair/Hai-la-Xfdut Xfer(QC): 6 Toilet Transfer (QC): 6 Car Transfer (QC): 6 Does the Patient Walk: Yes Walk 10 feet (QC): 6 Walk 50ft with 2 Turns (QC): 6 Walk 150 ft (QC): 6 Walking 10ft on Uneven Surface: 6 1 Step (curb) (QC): 6 4 Steps (QC): 6 12 Steps (QC): 88 Picking up an Object (QC): 88 Does the Pt use WC or Scooter?: Yes Wheel 50 feet with 2 turns (QC: 6 Type: Manual Wheel 150 feet: 6 PT Plan Problem List Problem List: Activity Tolerance, Functional Strength, Safety, Balance, Gait, Transfer, Bed Mobility, ROM Treatment/Plan Treatment Plan: Continue Plan of Care Treatment Plan: Bed Mobility, Education, Functional Activity Maira, Functional Strength, Group Therapy, Gait, Safety, Therapeutic Exercise, Transfers Treatment Duration: Sep 18, 2020 Frequency: Modified Program (IRF) (28/05) Estimated Hrs Per Day: 1.5 hours per day Patient and/or Family Agrees t: Yes Safety Risks/Education Patient Education: Gait Training, Reviewed Precautions, Correct Positioning, Safety Issues Teaching Recipient: Patient Teaching Methods: Demonstration, Discussion Response to Teaching: Reinforcement Needed Time/GCodes Time In: 1400 Time Out: 1430 Total Billed Treatment Time: 30 Total Billed Treatment 1 visit GT 20' EX 10' LITTLE LOMAS PT Sep 04, 2020 15:16
--- NOTE | 2020-09-04 15:26 | ST Cognitive Linguistic Eval ---
Speech Evaluation-General Medical Diagnosis Thoracic Aortic Aneurism Onset Date: Aug 22, 2020 Therapy Diagnosis Therapy Diagnosis: Cognitive-communication Referral Referring Physician: Dr. Dutta Medical History Pertinent Medical History: Atrial Fib, DM, HTN, Neuropathy Reviewed History: Yes Social History Current Living Status: Spouse (+eldest daughter) Speech PLF-Current Status Prior Level of Function Patient lived with her and daughter. She was independent for much of her daily needs. Subjective Patient was pleasant and cooperative with the cognitive assessment. Language Eval: Auditory Comprehends Simple Yes/No Ques: Functional Indent/Objects Multiple [place]: Functional Ident/Pics in Multiple [place]: Functional Follows 1-Step Commands: Functional Follows Complex Directions: Functional Follows General Conversations: Functional Language Eval: Verbal Language Completes Spontaneous Greeting: Functional Produces Auto, Serial Info: Functional Imitates Simple Words/Phrases: Functional Word Finding: Functional Requests Basic Needs: Functional States Basic Personal Info: Functional Expresses Complex Ideas: Functional Objective Cognitive Domain Attention: WNL Memory: WNL Problem Solving: Functional Executive Functions: WNL Visuospatial Skills: WNL Composite Severity Rating: WNL Clock Drawing Severity Rating: WNL Objective Formal/Standardized Tests [facility] Status ([facility]) Results 29/30, within normal range of function Oral Motor/Speech Production Within Normal Limits Impression Patient is a pleasant 60 y/o female who was admitted to the ARU s/p open heart surgery. Patient was given the SLUMS with a score of 29/30 obtained. The patient does not exhibit cognitive deficits at this time and does not require further ST services. Speech Patient Assess Expression of Ideas/Wants: Expression (4) Understanding Verbal Content: Understands (4) Brief Interview-Mental Status: Yes Repetition of Three Words: Three (3) Temporal Orientation: Year: Correct (3) Temporal Orientation: Month: Accurate within 5 days(2) Temporal Orientation: Day: Correct (1) Recall : Wear to say "Sock": Yes, no cue required (2) Recall : Color: Yes, no cue required (2) Recall : Bed: Yes, no cue required (2) Memory/Recall Ability: Current season, Location of own room, That he or she is in a hsp/hsp unit Speech-Plan Patient/Family Goals Patient/Family Goals: Patient plans on returning to her home where she lives with her and daughter. Treatment Plan Speech Therapy Treatment Plan: Discontinue ST Treatment Duration: Sep 04, 2020 Frequency: 1 time per week Estimated Hrs Per Day: .5 hour per day Rehab Potential: Good Barriers to Learning: None identified Pt/Family Agrees to Plan: Yes Safety Risks/Education Teaching Recipient: Patient Teaching Methods: Discussion Response to Teaching: Verbalize Understanding Education Topics Provided: Safety within her room Time Speech Therapy Time In: 11:30 Speech Therapy Time Out: 12:00 Total Billed Time: 30 Billed Treatment Time 1, LAMONT Pugh Sep 04, 2020 15:26
[2020-09-04 17:07] VITALS: BP 169/74
[2020-09-04 20:44] VITALS: BP 184/81
[2020-09-04] MEDS: FAMOTIDINE 20 MG (PEPCID) TABLET PO SCH (20:45)
[2020-09-04] MEDS: MAGNESIUM OXIDE (MAG-OX)400 MG TAB PO SCH (20:46)
[2020-09-05] MEDS: CATHETER FLUSH 10 ML SYR IV SCH ×3 (05:54→20:58)
[2020-09-05] MEDS: inSUlin ASPART (NovoLOG) 1 UNIT/0.01 ML (CHARGE PER UNIT) SC SCH ×4 (05:54→21:37)
[2020-09-05 06:00] VITALS: BP 150/66
[2020-09-05] MEDS: OMEGA 3 (FISH OIL) 1000 MG CAP PO SCH (07:45)
[2020-09-05] MEDS: SEVELAMER CARBONATE 800 MG TABLET (RENVELA) PO SCH ×3 (07:45→16:53)
[2020-09-05] MEDS: SODIUM BICARBONATE 650 MG TABLET (NON-FORMULARY) PO SCH ×2 (07:45→20:53)
[2020-09-05] MEDS: SENNA W/DOCUSATE (SENOKOT S) TABLET PO SCH ×2 (07:45→20:53)
[2020-09-05] MEDS: DOCUSATE SODIUM 100 MG (COLACE) CAP PO SCH ×2 (07:45→20:54)
[2020-09-05] MEDS: VITAMIN D3 125 MCG (5,000 UNITS) CAPSULE PO SCH (07:45)
[2020-09-05] MEDS: TORSEMIDE 20 MG (DEMADEX) TAB PO SCH (07:45)
[2020-09-05] MEDS: meTOprolol TARTRATE 25 MG (LOPRESSOR) TABLET PO SCH ×2 (07:45→20:53)
[2020-09-05] MEDS: AMIODARONE 200 MG (CORDARONE) TAB PO SCH ×2 (07:45→20:54)
[2020-09-05] MEDS: FOLIC ACID 1 MG TAB PO SCH (07:46)
[2020-09-05] MEDS: polyethylene glycoL POWDER 17 GM (MIRALAX) PACK PO SCH ×2 (07:46→20:55)
[2020-09-05] MEDS: ENOXAPARIN 30 MG/0.3 ML (LOVENOX) SYR SC SCH (07:46)
[2020-09-05] MEDS: ACETAMINOPHEN 500 MG TAB (TYLENOL) PO PRN (07:53)
--- NOTE | 2020-09-05 10:05 | Individualized Plan of Care ---
Individualized Plan of Care Rehab Nursing IPOC Order Admission Date Sep 03, 2020 at 16:28 Current Orders Orders Admission Order(Inpt,Obs,Sdc) (09/02/20 10:20) Vital Signs: Per Unit Policy ( 08,16,00 (09/02/20 10:20) Ward French , (09/02/20 10:20) Sequential Compression Device Q4H (09/02/20 10:20) Servomechanism Designer-Inpt Rehab Con (09/02/20 10:20) Rehab Nursing Orders-Ipoc (09/02/20 10:20) Physical Therapy Rehab Orders (09/02/20 10:20) Occupational Therapy Rehab Ord (09/02/20 10:20) Speech Therapy Rehab Orders (09/02/20 10:20) General/Regular (09/02/20 Lunch) Intake & Output 06,14,22 (09/02/20 10:20) Precautions (Aru) (09/02/20 10:20) Rehab-Intensity Of Therapy (09/02/20 10:20) Initiate Admission Nursing Pro .admission (09/02/20 10:20) Acetaminophen Tablet (Tylenol Tablet) (09/02/20 10:30) Alprazolam Tablet (Xanax Tablet) (09/02/20 10:30) Calcium Carbonate Chew Tablet (Antacid C (09/02/20 10:30) Diphenhydramine Tablet (Benadryl Tablet) (09/02/20 10:30) Docusate Sodium Capsule (Colace Capsule) (09/02/20 21:00) Docusate Sodium Capsule (Colace Capsule) (09/02/20 10:30) Bisacodyl Suppository (Dulcolax Supposit (09/02/20 10:30) Lactulose Oral Solution (Enulose Oral So (09/02/20 10:30) Na Phos/Na Biphos Enema (Fleet Enema Fredi (09/02/20 10:30) Guaifenesin/Codeine Syrup (Robitussin Ac (09/02/20 10:30) Loperamide Tablet (Imodium Tablet) (09/02/20 10:30) Enoxaparin Injection (Lovenox Injection) (09/02/20 20:30) Melatonin Tablet (Melatonin Tablet) (09/02/20 10:30) Polyethylene Glycol Powder Pkt (Miralax (09/02/20 21:00) Ondansetron Oral Dissolve Tab (Zofran (09/02/20 10:30) Senna S Tablet (Senokot S Tablet) (09/02/20 21:00) Initiate Admission Nursing Pro .admission (09/02/20 10:20) Admission Arrival Bed Request (09/03/20 16:42) Acetaminophen Tablet (Tylenol Tablet) (09/03/20 17:00) Amiodarone Tablet (Cordarone Tablet) (09/03/20 21:00) Atorvastatin Tablet (Lipitor Tablet) (09/04/20 09:00) Cholecalciferol Capsule/Tablet (Vitamin (09/04/20 09:00) Famotidine Tablet (Pepcid Tablet) (09/03/20 21:00) Metoprolol Tartrate (Ir) Tab (Lopressor (09/03/20 21:00) Sevelamer Carbonate Tablet (Renvela Tabl (09/03/20 18:00) Sodium Bicarbonate Tablet (Nf) (Sodium B (09/03/20 21:00) Torsemide Tablet (Demadex Tablet) (09/04/20 09:00) (Nf) Liraglutide (Victoza 2-Wilmer) (09/04/20 09:00) (Nf) Magnesium Oxide (09/03/20 21:00) (Nf) [place]-3 Fatty Acids/Fish Oil ([place] (09/04/20 09:00) (Nf) [Folic Acid] (09/04/20 09:00) Cbc With Automated Diff (09/04/20 06:00) Comprehensive Metabolic Panel (09/04/20 06:00) Consult Cardiology (09/03/20 16:59) Magnesium Oxide Tablet (Mag Ox Tablet) (09/03/20 21:00) [place] 3 Capsule (Fish Oil Capsule) (09/04/20 09:00) Folic Acid Tablet (Folic Acid Tablet) (09/04/20 09:00) Cho 75g/M 1snack (21-2400 Christ) (09/03/20 Dinner) Accucheck Achs ACHS (09/03/20 17:24) Insulin Aspart (Novolog) (Novolog (Charg (09/03/20 18:00) Telemetry (09/03/20 17:25) Telemetry Nursing Assessment ( (09/03/20 17:25) Sodium Chloride Flush (Catheter Flush Sy (09/03/20 22:00) Enoxaparin Injection (Lovenox Injection) (09/05/20 09:00) Patient Visit (09/04/20 ) Speech Sound Lang Comp (09/04/20 ) Patient Visit (09/04/20 ) Pt Eval Moderate Complexity (09/04/20 ) Functional Activities, Ea 15 (09/04/20 ) Patient Visit (09/04/20 ) Exercise Therap, Ea 15 Min (09/04/20 ) Gait Training, Ea 15 Min (09/04/20 ) Patient Visit (09/05/20 ) Gait Training, Ea 15 Min (09/05/20 ) Exercise Therap, Ea 15 Min (09/05/20 ) Patient Visit (09/05/20 ) Ex Neuromuscular, Ea 15 Min (09/05/20 ) Exercise Therap, Ea 15 Min (09/05/20 ) Gait Training, Ea 15 Min (09/05/20 ) Rehab Nursing Orders: Ongoing Assess. of Function Status, Bladder Management, Bladder Scan, Bladder Training, Bowel Management, Bowel Training, Disease Management & Educaiton, DVT Prophylaxis, Fall Prevention, Fluid/Electrolyte/Nutrition Mgmt, Infection Prevention, Medication Management & Education, Management of Risks & Complications, Management of Skin Intergrity, Nutrition Management, Pain Management, Patient/Family Support, Safety Manage ment, Swallow Precautions, Wound Management Intensity of Therapy to be met Patient to be seen: Min.3h per day/5 of 7d PT IPOC Problem List: Activity Tolerance, Functional Strength, Safety, Balance, Gait, Transfer, Bed Mobility, ROM Treatment Plan: Continue Plan of Care Bed Mobility, Education, Functional Activity Maira, Functional Strength, Group Therapy, Gait, Safety, Therapeutic Exercise, Transfers Treatment Duration: Sep 18, 2020 Frequency: Modified Program (IRF) (28/05) Estimated Hrs Per Day: 1.5 hours per day OT IPOC Problems: Decreased Activ Tolerance, Decreased UE Strength, Impaired Bed Mobility, Impaired Funct Balance, Impaired I ADL's, Impaired Self-Care Skills OT Treatment, Training and Edu: Yes Plan of Care: ADL Retraining, Functional Mobility, Group Exercise/Act as Ind, UE Funct Exercise/Act Treatment Duration: Sep 19, 2020 Frequency: Modified Program (IRF) (28/05) Estimated Hrs Per Day: 1.[address] IPOC Speech Therapy Treatment Plan: Discontinue ST Treatment Duration: Sep 04, 2020 Frequency: 1 time per week Estimated Hrs Per Day: .5 hour per day Servomechanism Designer/Case Mgmt Servomechanism Designer/Case Managemen: Discharge Planning Dietitian/Field Test Engineer Dietitian/Field Test Engineer to monitor nutritional status and make changes and/or recommendations as needed and work with speech pathology on dietary upgrades as the occur. Physician IPOC Medical Issues being managed closely and that require the 24 hour availability of a physician: Recent severe vascular surgery with chronic renal failure on the verge of dialysis will need close monitoring of fluid shifts and overall decline Medical Issues: Bowel/Bladder Function, DVT Prophylaxis, Falls Precautions, Fluid/Electrolyte/Nutrition Balance, Infection Protection, Pain Management, Wound Care Brief Synthesis of Preadmission Screen, Post-Admission Evaluation, and Therapy Evaluations: PT OT will focus on regaining function with ambulation and regaining ADL skills in order to return home Medical Prognosis: Good Anticipated Length of Stay: 7 days KRISTOPHER STEVE DO Sep 05, 2020 10:05
--- NOTE | 2020-09-05 10:08 | PM&R Progress Note ---
Subjective HPI/CC On Admission Date Seen by Provider: Sep 05, 2020 Time Seen by Provider: 10:00 Subjective/Events-last exam 09/05/20: Blood sugar [address] White Dressing changes performed Telemetry on No major issues Has talked about dialysis in the past BUN and Creatinine are very high at 124/4.5 but this chronic Bicarb is 24 Hgb 7.2 Incision looks good Settling in to inpatient rehab well Didnt sleep well Body pillow will be brought in by her family Overall settling in well Conferred with RN Reviewed therapy notes Checked meds and labs Review of Systems General: Fatigue, Malaise Pulmonary: Dyspnea Neurological: Weakness Objective Exam Vital Signs Vital Signs Date Time Temp Pulse Resp B/P (MAP) Pulse Ox O2 Delivery O2 Flow Rate FiO2 09/05/20 19:00 78 09/05/20 16:00 36.8 16 158/67 (97) 96 Room Air Capillary Refill : Less Than 3 Seconds General Appearance: No Apparent Distress, WD/WN, Chronically ill, Obese HEENT: PERRL/EOMI, Normal ENT Inspection, Pharynx Normal Neck: Full Range of Motion, Normal Inspection, Non Tender, Supple, Carotid Bruit Respiratory: Chest Non Tender, Lungs Clear, Normal Breath Sounds, No Accessory Muscle Use, No Respiratory Distress Cardiovascular: No Gallop, No JVD, Normal Peripheral Pulses, Systolic Murmur, Irregularly Irregular, Other (+2-3 BLE edema) Gastrointestinal: Normal Bowel Sounds, No Organomegaly, No Pulsatile Mass, Non Tender, Soft Rectal: Deferred Back: Normal Inspection, No CVA Tenderness, No Vertebral Tenderness Extremity: Normal Capillary Refill, Normal Inspection, Normal Range of Motion, Non Tender, No Calf Tenderness, Pedal Edema Neurologic/Psychiatric: Alert, Oriented x3, No Motor/Sensory Deficits, Normal Mood/Affect, Abnormal Gait, Motor Weakness Skin: Normal Color, Warm/Dry Lymphatic: No Adenopathy Results/Procedures Lab Patient resulted labs reviewed. FIM Transfers Therapy Code Descriptions/Definitions Functional [place] Measure: 0=Not Assessed/NA 4=Minimal Assistance 1=Total Assistance 5=Supervision or Setup 2=Maximal Assistance 6=Modified [place] 3=Moderate Assistance 7=Complete IndependenceSCALE: Activities may be completed with or without assistive devices. 7-Kkzuazjnvo-mupxcsu completes the activity by him/herself with no assistance from a helper. 5-Set-up or Clean-up Assistance-helper sets up or cleans up; patient completes activity. [place] assists only prior to or following the activity. 4-Supervision or Touching Assistance-helper provides verbal cues and/or touching/steadying and/or contact guard assistance as patient completes activity. Assistance may be provided throughout the activity or intermittently. 3-Partial/Moderate Assistance-helper does LESS THAN HALF the effort. [place] lifts, holds or supports trunk or limbs, but provides less than half the effort. 2-Substantial/Maximal Assistance-helper does MORE THAN HALF the effort. [place] lifts or holds trunk or limbs and provides more than half the effort. 2-Jqcwhlykw-tcnoqk does ALL the effort. Patient does none of the effort to complete the activity. Or, the assistance of 2 or more helpers is required for the patient to complete the activity. If activity was not attempted, code reason: 7-Patient Refused. 9-Not Applicable-not attempted and the patient did not perform the activity before the current illness, exacerbation or injury. 10-Not Attempted due to Environmental Limitations-(lack of equipment, weather restraints, etc.). 88-Not Attempted due to Medical Conditions or Safety Concerns. Roll Left to Right (QC): 6 Sit to Lying (QC): 3 Sit to Stand (QC): 3 Chair/Xxq-js-Gbkpg Xfer(QC): 3 Car Transfer (QC): 4 Gait Training Does the Patient Walk?: Yes Distance: 75'x4 Walk 10 feet (QC): 4 Walk 50 ft with 2 Turns(QC): 4 Walk 150 ft (QC): 88 Walking 10ft/uneven surface-QC: 4 Gait Assistive Device: FWW Wheelchair Training Does the Pt Use a Wheelchair?: Yes Distance: 80' Wheel 50 ft with 2 turns (QC): 4 Wheel 150 ft (QC): 4 Type of Wheelchair: Manual Stair Training #of Steps: 1 1 Step (curb) (QC): 4 4 Steps (QC): 88 12 Steps (QC): 88 Balance Picking up an Object (QC): 88 ADL-Treatment Eating (QC): 6 (Pt reports having no difficulty cutting food, bringing food to mouth, and eating at breakfast time) Oral Hygiene (QC): 5 (set up/clean up at w/c.) Shower/Bathe Self (QC): 3 (Sponge bath complete. Pt able to wash upper body, chest, abdomen, and lower body seated EOB. Pt required mod A sit to supine in order to perform pericare and to wash buttocks. Min A to sit back EOB to continue with sponge bath.) Upper Body Dressing (QC): 5 (set up assist) Lower Body Dressing (QC): 3 (Min A with threading underwear, pt able to thread pants and manage up in stand at FWW with CGA) On/Off Footwear (QC): 3 (Mod A, pt required assistance doffing L sock, then assistance for orientation of gripper socks after pt donned.) Toileting Hygiene (QC): 4 (CGA, pt able to manage clothing and perform hygiene.) Assessment/Plan Assessment and Plan Assess & Plan/Chief Complaint Assessment: Aortic regurgitation, aortic stenosis, ascending aortic aneurysm s/p aortic valve and ascending aorta replacement on 08/22 Neuropathy Obesity CKD HTN HLP CVA DM Hypothyroidism JW mu-ism so refusal of blood transfusions Anemia acute blood loss type Plan: IRF protocol Monitor hgb Cardiology consultation EKG Telemetry 09/04/20: Monitor creatinine Cardiology consultation Pain control Edema management 09/05/20: Monitor edema Monitor renal function (1) Aortic aneurysm (2) Refusal of blood transfusions as patient is [place] (3) Anemia (4) Hyponatremia (5) Diabetes mellitus (6) Hypertension (7) Hyperlipemia (8) Hypothyroidism (9) Renal insufficiency KRISTOPHER STEVE DO Sep 05, 2020 10:08
--- NOTE | 2020-09-05 11:30 | Occupational Ther Daily Note ---
OT Current Status-Daily Note Subjective Pt seated in recliner, agreeable to OT tx with focus on ADLs. Mental Status/Objective Patient Orientation: Person, Place, Time, Situation ADL-Treatment Therapy Code Descriptions/Definitions Functional [place] Measure: 0=Not Assessed/NA 4=Minimal Assistance 1=Total Assistance 5=Supervision or Setup 2=Maximal Assistance 6=Modified [place] 3=Moderate Assistance 7=Complete IndependenceSCALE: Activities may be completed with or without assistive devices. 8-Zlopzkauzq-xjalqdv completes the activity by him/herself with no assistance from a helper. 5-Set-up or Clean-up Assistance-helper sets up or cleans up; patient completes activity. [place] assists only prior to or following the activity. 4-Supervision or Touching Assistance-helper provides verbal cues and/or touching/steadying and/or contact guard assistance as patient completes activity. Assistance may be provided throughout the activity or intermittently. 3-Partial/Moderate Assistance-helper does LESS THAN HALF the effort. [place] lifts, holds or supports trunk or limbs, but provides less than half the effort. 2-Substantial/Maximal Assistance-helper does MORE THAN HALF the effort. [place] lifts or holds trunk or limbs and provides more than half the effort. 9-Olpe[place]sm-itziah does ALL the effort. Patient does none of the effort to complete the activity. Or, the assistance of 2 or more helpers is required for the patient to complete the activity. If activity was not attempted, code reason: 7-Patient Refused. 9-Not Applicable-not attempted and the patient did not perform the activity before the current illness, exacerbation or injury. 10-Not Attempted due to Environmental Limitations-(lack of equipment, weather restraints, etc.). 88-Not Attempted due to Medical Conditions or Safety Concerns. Shower/Bathe Self (QC): 4 (Pt able to wash/dry all parts, with SBA during stand at GBs.) Upper Body Dressing (QC): 5 (set up assist) Lower Body Dressing (QC): 4 (SBA, pt able to doff/john underwear and pants. 1 LOB noted during stand at EOB while managing pants up, pt able to self correct to regain balance.) On/Off Footwear: 3 (Pt able to doff gripper socks, don socks and shoes. Min A required, assist to hold R leg up in figure 4 position as pt donned shoes, and assist donning L shoe.) Toileting Hygiene (QC): 4 (supervision) Toilet Transfer (QC): 4 (supervision) Other Treatment Pt seated at recliner, used FWW to ambulate into restroom with SBA. Pt completed toileting and toilet hygiene with supervision, doffed clothes, then transferred into shower onto shower chair. Pt completed showering, then sat on toilet to perform grooming tasks, including hair, applying deodorant and perfume. Pt then used FWW to transfer from toilet to EOB where she donned clothes, then used FWW to transfer from EOB to recliner with SBA. Post OT tx, pt seated in recliner, call light in reach and all needs met. Education OT Patient Education: Correct positioning, Modified ADL techniques, Progress toward Goal/Update tx plan, Purpose of tx/functional activities, Safety issues Teaching Recipient: Patient Teaching Methods: Discussion Response to Teaching: Verbalize Understanding OT Nursing Home Goals Commercial Sales Consultant Goals Time Frame: Sep 19, 2020 Eating (QC): 6 Oral Hygiene (QC): 6 Toileting Hygiene (QC): 6 Shower/Bathe Self (QC): 6 Upper Body Dressing (QC): 6 Lower Body Dressing (QC): 6 On/Off Footwear (QC): 6 Additional Goals: 1-Demonstrate ADL Tasks, 2-Verbalize Understanding, 3- ImproveStrength/Maira 1=Demonstrate adherence to instructed precautions during ADL tasks. 2=Patient will verbalize/demonstrate understanding of assistive devices/modifications for ADL. 3=Patient will improve strength/tolerance for activity to enable patient to perform ADL's. OT Education/Plan Problem List/Assessment Assessment: Decreased Activ Tolerance, Decreased UE Strength, Impaired I ADL's, Impaired Self-Care Skills Discharge Recommendations Plan/Recommendations: Continue POC Treatment Plan/Plan of Care Patient would benefit from OT for education, treatment and training to promote independence in ADL's, mobility, safety and/or upper extremity function for ADL's. Plan of Care: ADL Retraining, Functional Mobility, Group Exercise/Act as Ind, UE Funct Exercise/Act Treatment Duration: Sep 19, 2020 Frequency: Modified Program (IRF) (28/05) Estimated Hrs Per Day: 1.5 hours per day Rehab Potential: Good Time/GCodes Start Time: 10:00 Stop Time: 11:00 Total Time Billed (hr/min): 60 Billed Treatment Time 1, ADL 4 ZARIA BRYANT OT Sep 05, 2020 11:30
--- NOTE | 2020-09-05 11:54 | Physical Therapy Daily Note ---
PT Daily Note-Current Subjective Pt presents sitting upright in recliner. Pt agrees to PT. Pt reports 2/10 pain describe as "soreness" at sternal incision sight. Appearance At conclusion of PT treatment pt returns to recliner where she has access to tray, call button, and all needs have been met. Mental Status Patient Orientation: Person, Place, Time, Eyes Open, Situation Transfers SCALE: Activities may be completed with or without assistive devices. 6-Isvbhgjmfy-twgwvlk completes the activity by him/herself with no assistance from a helper. 5-Set-up or Clean-up Assistance-helper sets up or cleans up; patient completes activity. [place] assists only prior to or following the activity. 4-Supervision or Touching Assistance-helper provides verbal cues and/or to uching/steadying and/or contact guard assistance as patient completes activity. Assistance may be provided throughout the activity or intermittently. 3-Partial/Moderate Assistance-helper does LESS THAN HALF the effort. [place] lifts, holds or supports trunk or limbs, but provides less than half the effort. 2-Substantial/Maximal Assistance-helper does MORE THAN HALF the effort. [place] lifts or holds trunk or limbs and provides more than half the effort. 5-Ppvfcakbu-ubwqsq does ALL the effort. Patient does none of the effort to complete the activity. Or, the assistance of 2 or more helpers is required for the patient to complete the activity. If activity was not attempted, code reason: 7-Patient Refused. 9-Not Applicable-not attempted and the patient did not perform the activity before the current illness, exacerbation or injury. 10-Not Attempted due to Environmental Limitations-(lack of equipment, weather restraints, etc.). 88-Not Attempted due to Medical Conditions or Safety Concerns. Sit to Stand (QC): 4 Chair/Gli-gi-Wnhnq Xfer(QC): 4 SBA. Pt completes sit to stand without UE as she hugs pillow. Weight Bearing Full Weight Bearing Full Weight Bearing Gait Training Does the Patient Walk?: Yes Distance: 75'x4 Walk 10 feet (QC): 4 Walk 50 ft with 2 Turns(QC): 4 Gait Assistive Device: FWW Pt ambulates from room <-> gym using FWW but requires seated rest break to reach this distance. Exercises Seated Therapy Exercises: Ankle pumps, Long arc quads, Hip flexion, Hamstring Curls, Hip abd/add, Glut set Seated Reps: 20 NuStep Minutes: 15 NuStep Workload: 2 (UE not used) Treatments Gait training and LE strengthening Assessment Current Status: Good Progress Pt fatigues easily with ambulation, but managed 8 min of exercises on nustep before needing to rest. Pt appears to struggle with weightbearing activities (LE). PT Short Term Goals Short Term Goals Time Frame: Sep 11, 2020 Roll Left & Right: 6 Sit to lyin Lying to sitting on side of be: 6 Sit to stand: 5 Chair/yow-fg-lxnnb transfer: 5 Toilet transfer: 5 Picking up objects: 4 PT Match Up Worker Goals Match Up Worker Goals PT Match Up Worker Goals Time Frame: Sep 18, 2020 Roll Left & Right (QC): 6 Sit to Lying (QC): 6 Lying-Sitting on Side/Bed(QC): 6 Sit to Stand (QC): 6 Chair/Gqs-sp-Aqslm Xfer(QC): 6 Toilet Transfer (QC): 6 Car Transfer (QC): 6 Does the Patient Walk: Yes Walk 10 feet (QC): 6 Walk 50ft with 2 Turns (QC): 6 Walk 150 ft (QC): 6 Walking 10ft on Uneven Surface: 6 1 Step (curb) (QC): 6 4 Steps (QC): 6 12 Steps (QC): 88 Picking up an Object (QC): 88 Does the Pt use WC or Scooter?: Yes Wheel 50 feet with 2 turns (QC: 6 Type: Manual Wheel 150 feet: 6 PT Plan Problem List Problem List: Activity Tolerance, Functional Strength, Safety, Balance, Gait, Transfer, Bed Mobility, ROM Treatment/Plan Treatment Plan: Continue Plan of Care Treatment Plan: Bed Mobility, Education, Functional Activity Maira, Functional Strength, Group Therapy, Gait, Safety, Therapeutic Exercise, Transfers Treatment Duration: Sep 18, 2020 Frequency: Modified Program (IRF) (28/05) Estimated Hrs Per Day: 1.5 hours per day Patient and/or Family Agrees t: Yes Safety Risks/Education Patient Education: Gait Training, Transfer Techniques, Correct Positioning, Safety Issues Teaching Recipient: Patient Teaching Methods: Demonstration, Discussion Response to Teaching: Reinforcement Needed Time/GCodes Time In: 1100 Time Out: 1200 Total Billed Treatment Time: 60 Total Billed Treatment 1 visit GT 30' EX 30' LITTLE LOMAS PT Sep 05, 2020 11:54
--- NOTE | 2020-09-05 13:30 | Cardiology Progress Note ---
Subjective Date Seen by Provider: Sep 05, 2020 Time Seen by Provider: 13:29 Subjective/Events-last exam Patient is sitting comfortably in a chair, no new complaint Review of Systems General: No Chills, No Night Sweats; Fatigue; No Malaise, No Appetite, No Other HEENT: No Head Aches, No Visual Changes, No Eye Pain, No Ear Pain, No Dysphasia, No Sinus Congestion, No Post Nasal Drip, No Sore Throat, No Other Pulmonary: No Dyspnea, No Cough, No Pleuritic Chest Pain, No Other Cardiovascular: Edema; No: Chest Pain, Palpitations, Orthopnea, Paroxysmal Noc. Dyspnea, Lt Headedness, Other Objective-Cardiology Exam Last Set of Vital Signs Vital Signs 09/05/20 09/05/20 09/05/20 06:00 08:48 13:00 Temp 36.8 Pulse 80 Resp 17 B/P (MAP) 150/66 (94) Pulse Ox 96 O2 Delivery Room Air Capillary Refill : Less Than 3 Seconds I&O Intake and Output 09/05/20 00:00 Intake Total 1600 ml Balance 1600 ml Intake Oral 1600 ml # Voids 10 # Bowel Movements 1 General: Alert, Oriented X3, Cooperative HEENT: Atraumatic, PERRLA Neck: Supple, No JVD, No Thyromegaly Lungs: Clear to Auscultation, Normal Air Movement Heart: Regular Rate, Normal S1, Normal S2, No Murmurs Abdomen: Normal Bowel Sounds, Soft, No Tenderness, No Hepatosplenomegaly, No Masses Extremities: No Clubbing, No Cyanosis, Normal Pulses, No Tenderness/Swelling, Other (peripheral edema) Skin: No Rashes, No Breakdown, No Significant Lesion Neuro: Normal Gait, Normal Speech, Strength at 5/5 X4 Ext, Normal Tone, Sensation Intact Psych/Mental Status: Mental Status NL, Mood NL A/P-Cardiology Admission Diagnosis Bicuspid aortic valve stenosis, status post aortic valve replacement Ascending aortic aneurysm, status post replacement Atrial fibrillation Acute on chronic kidney disease Assessment/Plan Bicuspid aortic valve stenosis, aortic regurgitation, ascending aortic aneurysm, status post aortic valve and AAA replacement done on August 22 at [facility] in [place]. Dressing is clean dry and intact. We will continue to monitor. Anemia, hemoglobin 7.2 on September 04, 2020. Patient is Jehovah witness, does not allow blood products, I'll continue to monitor closely Atrial fibrillation, currently maintained on amiodarone 200 mg twice daily. Currently rate controlled atrial fibrillation, unable to tolerate oral anticoagulation at this time secondary to her anemia. 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 Felix Jackson on chronic kidney disease, patient reports she has stage IV chronic continue disease follows with Dr. Lynn. Creatinine 4.5 this morning, reports baseline creatinine usually around 3. Patient did require hemodialysis times one post operatively. Continue to monitor renal function closely. Hypertension, controlled, continue to monitor. Hyperlipidemia, continue to monitor lipids outpatient Diabetes mellitus, managed per medical services Hypothyroidism, managed by medical services. History of CVA in the past Obesity Clinical Quality Measures DVT/VTE Risk/Contraindication: Risk Factor Score Per Nursin RFS Level Per Nursing on Admit: 4+=Very High RICHARD LIN MD Sep 05, 2020 13:30
--- NOTE | 2020-09-05 14:47 | Occupational Ther Daily Note ---
OT Current Status-Daily Note Subjective Pt seated in recliner, agreeable to OT tx. Mental Status/Objective Patient Orientation: Person, Place, Time ADL-Treatment Therapy Code Descriptions/Definitions Functional [place] Measure: 0=Not Assessed/NA 4=Minimal Assistance 1=Total Assistance 5=Supervision or Setup 2=Maximal Assistance 6=Modified [place] 3=Moderate Assistance 7=Complete IndependenceSCALE: Activities may be completed with or without assistive devices. 3-Vieolaqfki-xljzcek completes the activity by him/herself with no assistance from a helper. 5-Set-up or Clean-up Assistance-helper sets up or cleans up; patient completes activity. [place] assists only prior to or following the activity. 4-Supervision or Touching Assistance-helper provides verbal cues and/or touching/steadying and/or contact guard assistance as patient completes activity. Assistance may be provided throughout the activity or intermittently. 3-Partial/Moderate Assistance-helper does LESS THAN HALF the effort. [place] lifts, holds or supports trunk or limbs, but provides less than half the effort. 2-Substantial/Maximal Assistance-helper does MORE THAN HALF the effort. [place] lifts or holds trunk or limbs and provides more than half the effort. 9-Zdfieedmc-sixuuw does ALL the effort. Patient does none of the effort to complete the activity. Or, the assistance of 2 or more helpers is required for the patient to complete the activity. If activity was not attempted, code reason: 7-Patient Refused. 9-Not Applicable-not attempted and the patient did not perform the activity before the current illness, exacerbation or injury. 10-Not Attempted due to Environmental Limitations-(lack of equipment, weather restraints, etc.). 88-Not Attempted due to Medical Conditions or Safety Concerns. Oral Hygiene (QC): 6 (IND seated in w/c at sink) Toileting Hygiene (QC): 4 (supervision) Toilet Transfer (QC): 4 (supervision) Other Treatment [id number]:Pt seated in recliner, agreeable to OT Tx. Pt stood from recliner with SBA, then ambulated into restroom to the sink with SBA, w/c brought behind pt and she sat to complete oral care. Pt then stood at FWW, transferring to toilet to complete toileting. Pt returned to w/c. Pt self-propelled w/c to therapy gym. In order to increase BUE fine motor strength and UE endurance, pt completed graded clothespin activity (1-5lbs), x2 sets each hand with rest breaks as nee ded. [id number] OT/PT cotreat: OT/PT cotreat in order to coordinate UE/LEs which a rn cardiac rehab could not perform, in order to focus on increasing dynamic standing balance, functional reaching, and standing tolerance/endurance. OT focused on UE placement, cues for sequencing/safety, functional reaching while PT focused on LE placement, overall gross movements, and dynamic standing balance. Pt stood at FWW, PT assisted pt with balance as OT and pt hit a balloon back and forth. Pt able to tolerate ~2 mins of activity before requiring a rest break. Pt able to complete x3 trials with rest breaks in between. After tx, pt seated in w/c in [facility] gym with PT, all needs met. Education OT Patient Education: Correct positioning, Energy conservation, Modified ADL techniques, Progress toward Goal/Update tx plan, Purpose of tx/functional activities, Safety issues, Transfer techniques Teaching Recipient: Patient Teaching Methods: Discussion Response to Teaching: Verbalize Understanding OT Alf Goals Pre Wave Assembler Goals Time Frame: Sep 19, 2020 Eating (QC): 6 Oral Hygiene (QC): 6 Toileting Hygiene (QC): 6 Shower/Bathe Self (QC): 6 Upper Body Dressing (QC): 6 Lower Body Dressing (QC): 6 On/Off Footwear (QC): 6 Additional Goals: 1-Demonstrate ADL Tasks, 2-Verbalize Understanding, 3- ImproveStrength/Maira 1=Demonstrate adherence to instructed precautions during ADL tasks. 2=Patient will verbalize/demonstrate understanding of assistive devices/modifications for ADL. 3=Patient will improve strength/tolerance for activity to enable patient to perform ADL's. OT Education/Plan Problem List/Assessment Assessment: Decreased Activ Tolerance, Decreased UE Strength, Impaired Funct B alance, Impaired I ADL's, Impaired Self-Care Skills Discharge Recommendations Plan/Recommendations: Continue POC Treatment Plan/Plan of Care Patient would benefit from OT for education, treatment and training to promote independence in ADL's, mobility, safety and/or upper extremity function for ADL's. Plan of Care: ADL Retraining, Functional Mobility, Group Exercise/Act as Ind, UE Funct Exercise/Act Treatment Duration: Sep 19, 2020 Frequency: Modified Program (IRF) (28/05) Estimated Hrs Per Day: 1.5 hours per day Rehab Potential: Good Time/GCodes Start Time: 13:30 Stop Time: 14:30 Total Time Billed (hr/min): 60 Billed Treatment Time [id number] OT tx, [id number] OT/PT cotreat 1, ADL (15'), FA 3 (45') ZARIA BRYANT OT Sep 05, 2020 14:47
--- NOTE | 2020-09-05 14:58 | Physical Therapy Daily Note ---
PT Daily Note-Current Subjective Pt presents sitting upright in wheelchair in rehab gym under supervision of OT. Pt agrees to PT. Pt reports unrated discomfort at sternal scar. Will be co- treating with OT to work on more advanced standing balance activities. Appearance At conclusion of PT treatment pt is escorted to recliner; pt has access to tray, call button, and all needs have been met. Mental Status Patient Orientation: Person, Place, Time, Eyes Open, Situation Transfers SCALE: Activities may be completed with or without assistive devices. 4-Pmwzincxqs-qekuevz completes the activity by him/herself with no assistance from a helper. 5-Set-up or Clean-up Assistance-helper sets up or cleans up; patient completes activity. [place] assists only prior to or following the activity. 4-Supervision or Touching Assistance-helper provides verbal cues and/or touching/steadying and/or contact guard assistance as patient completes activity. Assistance may be provided throughout the activity or intermittently. 3-Partial/Moderate Assistance-helper does LESS THAN HALF the effort. [place] lifts, holds or supports trunk or limbs, but provides less than half the effort. 2-Substantial/Maximal Assistance-helper does MORE THAN HALF the effort. [place] lifts or holds trunk or limbs and provides more than half the effort. 3-Izqmmxmqy-wtxzel does ALL the effort. Patient does none of the effort to complete the activity. Or, the assistance of 2 or more helpers is required for the patient to complete the activity. If activity was not attempted, code reason: 7-Patient Refused. 9-Not Applicable-not attempted and the patient did not perform the activity before the current illness, exacerbation or injury. 10-Not Attempted due to Environmental Limitations-(lack of equipment, weather restraints, etc.). 88-Not Attempted due to Medical Conditions or Safety Concerns. Sit to Stand (QC): 4 Chair/Gey-rv-Jlnrp Xfer(QC): 4 CGA. Weight Bearing Full Weight Bearing Full Weight Bearing Gait Training Does the Patient Walk?: Yes Distance: 150' Walk 10 feet (QC): 4 Walk 50 ft with 2 Turns(QC): 4 Walk 150 ft (QC): 4 Gait Assistive Device: FWW CGA, slow but steady ambulation Exercises Seated Therapy Exercises: Long arc quads (3.25min), Hip flexion Seated Reps: 40 Treatments Standing balance with balloon taps Assessment Current Status: Fair Progress Pt fatigues quickly with standing activities; pt is short of breath after approx 2min. Pt is improving in gait and was able to ambulate from gym to room without need for rest break, but overall needs frequent rest breaks due to fatigue. PT Short Term Goals Short Term Goals Time Frame: Sep 11, 2020 Roll Left & Right: 6 Sit to lyin Lying to sitting on side of be: 6 Sit to stand: 5 Chair/mvj-fa-uvtnv transfer: 5 Toilet transfer: 5 Picking up objects: 4 PT Residential Goals Residential Goals PT Assistant Director Of Admissions Goals Time Frame: Sep 18, 2020 Roll Left & Right (QC): 6 Sit to Lying (QC): 6 Lying-Sitting on Side/Bed(QC): 6 Sit to Stand (QC): 6 Chair/Frv-mk-Flghk Xfer(QC): 6 Toilet Transfer (QC): 6 Car Transfer (QC): 6 Does the Patient Walk: Yes Walk 10 feet (QC): 6 Walk 50ft with 2 Turns (QC): 6 Walk 150 ft (QC): 6 Walking 10ft on Uneven Surface: 6 1 Step (curb) (QC): 6 4 Steps (QC): 6 12 Steps (QC): 88 Picking up an Object (QC): 88 Does the Pt use WC or Scooter?: Yes Wheel 50 feet with 2 turns (QC: 6 Type: Manual Wheel 150 feet: 6 PT Plan Problem List Problem List: Activity Tolerance, Functional Strength, Safety, Balance, Gait, Transfer, Bed Mobility, ROM Treatment/Plan Treatment Plan: Continue Plan of Care Treatment Plan: Bed Mobility, Education, Functional Activity Maira, Functional Strength, Group Therapy, Gait, Safety, Therapeutic Exercise, Transfers Treatment Duration: Sep 18, 2020 Frequency: Modified Program (IRF) (28/05) Estimated Hrs Per Day: 1.5 hours per day Patient and/or Family Agrees t: Yes Safety Risks/Education Patient Education: Gait Training, Transfer Techniques, Correct Positioning, Safety Issues Teaching Recipient: Patient Teaching Methods: Demonstration, Discussion Response to Teaching: Reinforcement Needed Time/GCodes Time In: 1400 Time Out: 1500 Total Billed Treatment Time: 60 Total Billed Treatment 1 visit NM 30' EX 20' GT 10' LITTLE LOMAS PT Sep 05, 2020 14:58
--- NOTE | 2020-09-05 15:30 | NUR ---
CM/SS ADMISSION Patient was admitted to ARU 09/03/20 from [facility] post op for thoracic aortic aneurysm, aortic valve and ascending aorta replacement 08/22/20. Additional comorbidities are, in part, anemia with refusal of blood transfusions due to Taoism beliefs, hyponatremia, DM, HTN, HLP, renal insufficiency with dialysis post op, obesity, neuropathy, CVA. Patient resides at home with her spouse James and her daughter/caregiver Penny. Her plan is to return there as soon as able. PCP: Dr. Juvencio Estevez MD [address] [place], [place] [phone] PHARMACY: [address] [phone] INSURANCE: [place] Medicaid DME: Has Rollator Walker, wheelchair. BARRIERS TO DISCHARGE PLAN: Patient's daughter Penny Erickson is her paid caregiver through [place] Medicaid and Independent Living, 22 hours per week coverage. Penny resides with her parents so patient has spouse and daughter there with her to assist as needed. Barriers appear minimal. CONTACTS: James Erickson, spouse Penny Erickson, daughter, [address] [place] [address] Nati Dao, Daughter [place], [place] [phone] Patient understands the purpose and process of the weekly patient care conference and that her first review will be September 10.
[2020-09-05 16:00] VITALS: BP 158/67
--- NOTE | 2020-09-05 16:24 | NUR ---
CM/SS VOTING Inquiry was made regarding the upcoming Presidential election and whether patient had an alternate plan to vote due to her hospitalization. Patient, respectfully, does not participate in voting due to her particular kit.
[2020-09-05] MEDS: MAGNESIUM OXIDE (MAG-OX)400 MG TAB PO SCH (20:53)
[2020-09-05] MEDS: FAMOTIDINE 20 MG (PEPCID) TABLET PO SCH (20:53)
[2020-09-06 06:00] VITALS: BP 139/64
[2020-09-06] MEDS: inSUlin ASPART (NovoLOG) 1 UNIT/0.01 ML (CHARGE PER UNIT) SC SCH ×4 (06:08→20:53)
[2020-09-06] MEDS: CATHETER FLUSH 10 ML SYR IV SCH ×3 (06:17→20:34)
--- NOTE | 2020-09-06 06:26 | PM&R Progress Note ---
Subjective HPI/CC On Admission Date Seen by Provider: Sep 06, 2020 Time Seen by Provider: 12:00 Subjective/Events-last exam 09/06/20: Dressing changes reveal good healing Did not sleep well last night and declines any meds except Melatonin Showered with help Tely maintained 09/05/20: Blood sugar [address] White Dressing changes performed Telemetry on No major issues Has talked about dialysis in the past BUN and Creatinine are very high at 124/4.5 but this chronic Bicarb is 24 Hgb 7.2 Incision looks good Settling in to inpatient rehab well Didnt sleep well Body pillow will be brought in by her family Overall settling in well Conferred with RN Reviewed therapy notes Checked meds and labs Review of Systems General: Fatigue Objective Exam Vital Signs Vital Signs Date Time Temp Pulse Resp B/P (MAP) Pulse Ox O2 Delivery O2 Flow Rate FiO2 09/06/20 16:11 36.6 75 18 183/74 (110) 96 Room Air Capillary Refill : Less Than 3 Seconds General Appearance: No Apparent Distress, WD/WN, Chronically ill, Obese HEENT: PERRL/EOMI, Normal ENT Inspection, Pharynx Normal Neck: Full Range of Motion, Normal Inspection, Non Tender, Supple, Carotid Bruit Respiratory: Chest Non Tender, Lungs Clear, Normal Breath Sounds, No Accessory Muscle Use, No Respiratory Distress Cardiovascular: No Gallop, No JVD, Normal Peripheral Pulses, Systolic Murmur, Irregularly Irregular, Other (+2-3 BLE edema) Gastrointestinal: Normal Bowel Sounds, No Organomegaly, No Pulsatile Mass, Non Tender, Soft Rectal: Deferred Back: Normal Inspection, No CVA Tenderness, No Vertebral Tenderness Extremity: Normal Capillary Refill, Normal Inspection, Normal Range of Motion, Non Tender, No Calf Tenderness, Pedal Edema Neurologic/Psychiatric: Alert, Oriented x3, No Motor/Sensory Deficits, Normal Mood/Affect, Abnormal Gait, Motor Weakness Skin: Normal Color, Warm/Dry Lymphatic: No Adenopathy Results/Procedures Lab Patient resulted labs reviewed. FIM Transfers Therapy Code Descriptions/Definitions Functional [place] Measure: 0=Not Assessed/NA 4=Minimal Assistance 1=Total Assistance 5=Supervision or Setup 2=Maximal Assistance 6=Modified [place] 3=Moderate Assistance 7=Complete IndependenceSCALE: Activities may be completed with or without assistive devices. 7-Xocskjbtbm-yisrpbl completes the activity by him/herself with no assistance from a helper. 5-Set-up or Clean-up Assistance-helper sets up or cleans up; patient completes activity. [place] assists only prior to or following the activity. 4-Supervision or Touching Assistance-helper provides verbal cues and/or touching/steadying and/or contact guard assistance as patient completes activity. Assistance may be provided throughout the activity or intermittently. 3-Partial/Moderate Assistance-helper does LESS THAN HALF the effort. [place] lifts, holds or supports trunk or limbs, but provides less than half the effort. 2-Substantial/Maximal Assistance-helper does MORE THAN HALF the effort. [place] lifts or holds trunk or limbs and provides more than half the effort. 4-Prcpukxjr-fpotfh does ALL the effort. Patient does none of the effort to complete the activity. Or, the assistance of 2 or more helpers is required for the patient to complete the activity. If activity was not attempted, code reason: 7-Patient Refused. 9-Not Applicable-not attempted and the patient did not perform the activity before the current illness, exacerbation or injury. 10-Not Attempted due to Environmental Limitations-(lack of equipment, weather restraints, etc.). 88-Not Attempted due to Medical Conditions or Safety Concerns. Roll Left to Right (QC): 6 Sit to Lying (QC): 3 Sit to Stand (QC): 4 Chair/Tad-ur-Vclqk Xfer(QC): 4 Car Transfer (QC): 4 Gait Training Does the Patient Walk?: Yes Distance: 150' Walk 10 feet (QC): 4 Walk 50 ft with 2 Turns(QC): 4 Walk 150 ft (QC): 4 Walking 10ft/uneven surface-QC: 4 Gait Assistive Device: FWW Wheelchair Training Does the Pt Use a Wheelchair?: Yes Distance: 80' Wheel 50 ft with 2 turns (QC): 4 Wheel 150 ft (QC): 4 Type of Wheelchair: Manual Stair Training #of Steps: 1 1 Step (curb) (QC): 4 4 Steps (QC): 88 12 Steps (QC): 88 Balance Picking up an Object (QC): 88 ADL-Treatment Eating (QC): 6 (Pt reports having no difficulty cutting food, bringing food to mouth, and eating at breakfast time) Oral Hygiene (QC): 6 (IND seated in w/c at sink) Shower/Bathe Self (QC): 4 (Pt able to wash/dry all parts, with SBA during stand at GBs.) Upper Body Dressing (QC): 5 (set up assist) Lower Body Dressing (QC): 4 (SBA, pt able to doff/john underwear and pants. 1 LOB noted during stand at EOB while managing pants up, pt able to self correct to regain balance.) On/Off Footwear (QC): 3 (Pt able to doff gripper socks, don socks and shoes. Min A required, assist to hold R leg up in figure 4 position as pt donned shoes, and assist donning L shoe.) Toileting Hygiene (QC): 4 (supervision) Toilet Transfer (QC): 4 (supervision) Assessment/Plan Assessment and Plan Assess & Plan/Chief Complaint Assessment: Aortic regurgitation, aortic stenosis, ascending aortic aneurysm s/p aortic valve and ascending aorta replacement on 08/22 Neuropathy Obesity CKD HTN HLP CVA DM Hypothyroidism JW mormon so refusal of blood transfusions Anemia acute blood loss type Plan: IRF protocol Monitor hgb Cardiology consultation EKG Telemetry 09/04/20: Monitor creatinine Cardiology consultation Pain control Edema management 09/05/20: Monitor edema Monitor renal function 09/06/20: Tely maintained Monitor BP (1) Aortic aneurysm (2) Refusal of blood transfusions as patient is Christian (3) Anemia (4) Hyponatremia (5) Diabetes mellitus (6) Hypertension (7) Hyperlipemia (8) Hypothyroidism (9) Renal insufficiency KRISTOPHER STEVE DO Sep 06, 2020 06:26
[2020-09-06] MEDS: AMIODARONE 200 MG (CORDARONE) TAB PO SCH ×2 (08:17→20:33)
[2020-09-06] MEDS: SENNA W/DOCUSATE (SENOKOT S) TABLET PO SCH ×2 (08:17→20:33)
[2020-09-06] MEDS: SODIUM BICARBONATE 650 MG TABLET (NON-FORMULARY) PO SCH ×2 (08:17→20:34)
[2020-09-06] MEDS: meTOprolol TARTRATE 25 MG (LOPRESSOR) TABLET PO SCH ×2 (08:17→20:33)
[2020-09-06] MEDS: VITAMIN D3 125 MCG (5,000 UNITS) CAPSULE PO SCH (08:17)
[2020-09-06] MEDS: OMEGA 3 (FISH OIL) 1000 MG CAP PO SCH (08:17)
[2020-09-06] MEDS: ENOXAPARIN 30 MG/0.3 ML (LOVENOX) SYR SC SCH (08:17)
[2020-09-06] MEDS: DOCUSATE SODIUM 100 MG (COLACE) CAP PO SCH ×2 (08:17→20:33)
[2020-09-06] MEDS: SEVELAMER CARBONATE 800 MG TABLET (RENVELA) PO SCH ×3 (08:17→18:06)
[2020-09-06] MEDS: TORSEMIDE 20 MG (DEMADEX) TAB PO SCH (08:17)
[2020-09-06] MEDS: polyethylene glycoL POWDER 17 GM (MIRALAX) PACK PO SCH ×2 (08:17→20:34)
[2020-09-06] MEDS: ACETAMINOPHEN 500 MG TAB (TYLENOL) PO PRN (08:18)
[2020-09-06] MEDS: FOLIC ACID 1 MG TAB PO SCH (08:19)
--- NOTE | 2020-09-06 09:17 | Occupational Ther Daily Note ---
OT Current Status-Daily Note Subjective No pain reported. However pt. states that she didn't sleep well because the bed is uncomfortable. Appearance Pt. up in chair when OT enters room. Agrees to work with OT. Mental Status/Objective Patient Orientation: Person, Place, Time, Situation ADL-Treatment Therapy Code Descriptions/Definitions Functional [place] Measure: 0=Not Assessed/NA 4=Minimal Assistance 1=Total Assistance 5=Supervision or Setup 2=Maximal Assistance 6=Modified [place] 3=Moderate Assistance 7=Complete IndependenceSCALE: Activities may be completed with or without assistive devices. 8-Jsiyhxholc-qghandm completes the activity by him/herself with no assistance from a helper. 5-Set-up or Clean-up Assistance-helper sets up or cleans up; patient completes activity. [place] assists only prior to or following the activity. 4-Supervision or Touching Assistance-helper provides verbal cues and/or touching/steadying and/or contact guard assistance as patient completes activity. Assistance may be provided throughout the activity or intermittently. 3-Partial/Moderate Assistance-helper does LESS THAN HALF the effort. [place] lifts, holds or supports trunk or limbs, but provides less than half the effort. 2-Substantial/Maximal Assistance-helper does MORE THAN HALF the effort. [place] lifts or holds trunk or limbs and provides more than half the effort. 0-Hgwhzscso-bbeaxd does ALL the effort. Patient does none of the effort to complete the activity. Or, the assistance of 2 or more helpers is required for the patient to complete the activity. If activity was not attempted, code reason: 7-Patient Refused. 9-Not Applicable-not attempted and the patient did not perform the activity before the current illness, exacerbation or injury. 10-Not Attempted due to Environmental Limitations-(lack of equipment, weather restraints, etc.). 88-Not Attempted due to Medical Conditions or Safety Concerns. Shower/Bathe Self (QC): 4 (SBA) Upper Body Dressing (QC): 5 Lower Body Dressing (QC): 3 (Min assist to thread brief over left foot. Pt. reports that due to foot swelling, she is having a more difficult time today.) On/Off Footwear: 2 (Pt. requires assistance today with slipper socks. OT educates her on sock aide, but pt. states that she usually has no difficulty, and did not have difficulty yesterday.) Toileting Hygiene (QC): 4 (SBA) Toilet Transfer (QC): 4 Education OT Patient Education: Correct positioning, Modified ADL techniques, Progress toward Goal/Update tx plan, Purpose of tx/functional activities, Reviewed precautions, Rehab process, Transfer techniques Teaching Recipient: Patient Teaching Methods: Demonstration, Discussion Response to Teaching: Verbalize Understanding, Return Demonstration OT Assisted Goals Fermentation Scientist Goals Time Frame: Sep 19, 2020 Eating (QC): 6 Oral Hygiene (QC): 6 Toileting Hygiene (QC): 6 Shower/Bathe Self (QC): 6 Upper Body Dressing (QC): 6 Lower Body Dressing (QC): 6 On/Off Footwear (QC): 6 Additional Goals: 1-Demonstrate ADL Tasks, 2-Verbalize Understanding, 3-I mproveStrength/Maira 1=Demonstrate adherence to instructed precautions during ADL tasks. 2=Patient will verbalize/demonstrate understanding of assistive devices/modifications for ADL. 3=Patient will improve strength/tolerance for activity to enable patient to perform ADL's. OT Education/Plan Problem List/Assessment Assessment: Decreased Activ Tolerance, Impaired I ADL's, Impaired Self-Care Skills Discharge Recommendations Plan/Recommendations: Continue POC Therapy Discharge Recommendati: Home & Family Equpiment Recommendations-D/C: Hip Kit Treatment Plan/Plan of Care Treatment,Training & Education: Yes Patient would benefit from OT for education, treatment and training to promote independence in ADL's, mobility, safety and/or upper extremity function for ADL's. Plan of Care: ADL Retraining, Functional Mobility, Group Exercise/Act as Ind, UE Funct Exercise/Act Treatment Duration: Sep 19, 2020 Frequency: Modified Program (IRF) (28/05) Estimated Hrs Per Day: 1.5 hours per day Agreement: Yes Rehab Potential: Good Time/GCodes Start Time: 08:10 Stop Time: 09:00 Total Time Billed (hr/min): 50 Billed Treatment Time 1, ADL x 3 TOSHIA VIDES OT Sep 06, 2020 09:17
--- NOTE | 2020-09-06 10:44 | Cardiology Progress Note ---
Subjective Date Seen by Provider: Sep 06, 2020 Time Seen by Provider: 10:43 Subjective/Events-last exam Patient was seen at bedside, sitting comfortably, feeling better. No new c omplaint Review of Systems General: No Chills, No Night Sweats; Fatigue; No Malaise, No Appetite, No Other HEENT: No Head Aches, No Visual Changes, No Eye Pain, No Ear Pain, No Dysphasia, No Sinus Congestion, No Post Nasal Drip, No Sore Throat, No Other Pulmonary: Dyspnea; No Cough, No Pleuritic Chest Pain, No Other Cardiovascular: No: Chest Pain, Palpitations, Orthopnea, Paroxysmal Noc. Dyspnea, Edema, Lt Headedness, Other Objective-Cardiology Exam Last Set of Vital Signs Vital Signs 09/06/20 09/06/20 09/06/20 06:00 07:00 09:00 Temp 36.8 Pulse 84 Resp 18 B/P (MAP) 139/64 (89) Pulse Ox 98 O2 Delivery Room Air Capillary Refill : Less Than 3 Seconds I&O Intake and Output 09/06/20 00:00 Intake Total 1100 ml Output Total 400 ml Balance 700 ml Intake Oral 1100 ml Output Urine Total 400 ml # Voids 3 # Bowel Movements 1 General: Alert, Oriented X3, Cooperative HEENT: Atraumatic, PERRLA Neck: Supple, No JVD, No Thyromegaly Lungs: Clear to Auscultation, Normal Air Movement Heart: Regular Rate, Normal S1, Normal S2, No Murmurs Abdomen: Normal Bowel Sounds, Soft, No Tenderness, No Hepatosplenomegaly, No Masses Extremities: No Clubbing, No Cyanosis, Normal Pulses, No Tenderness/Swelling, Other (peripheral edema) Skin: No Rashes, No Breakdown, No Significant Lesion Neuro: Normal Gait, Normal Speech, Strength at 5/5 X4 Ext, Normal Tone, Sensation Intact Psych/Mental Status: Mental Status NL, Mood NL A/P-Cardiology Admission Diagnosis Bicuspid aortic valve stenosis, status post aortic valve replacement Ascending aortic aneurysm, status post replacement Atrial fibrillation Acute on chronic kidney disease Assessment/Plan Bicuspid aortic valve stenosis, aortic regurgitation, ascending aortic aneurysm, status post aortic valve and AAA replacement done on August 22 at [facility] in [place]. Dressing is clean dry and intact. We will continue to monitor. Anemia, hemoglobin 7.2 on September 04, 2020. Patient is Jehovah witness, does not allow blood products, I'll continue to monitor closely Atrial fibrillation, currently maintained on amiodarone 200 mg twice daily. Currently rate controlled atrial fibrillation, unable to tolerate oral anticoagulation at this time secondary to her anemia. Patient's primary dough machine operator is Dr. Felix Jackson on chronic kidney disease, patient reports she has stage IV chronic continue disease follows with Dr. Lynn. Patient did require hemodialysis in the past, Continue to monitor renal function. Hypertension, controlled, continue to monitor. Hyperlipidemia, continue to monitor lipids outpatient Diabetes mellitus, managed per medical services Hypothyroidism, managed by medical services. History of CVA in the past Obesity Clinical Quality Measures DVT/VTE Risk/Contraindication: Risk Factor Score Per Nursin RFS Level Per Nursing on Admit: 4+=Very High RICHARD LIN MD Sep 06, 2020 10:44 am
--- NOTE | 2020-09-06 12:12 | Physical Therapy Daily Note ---
PT Daily Note-Current Subjective Pt. up in recliner on computer, ready to work, pt. states she is happy with her progress and feels she is at PLOF. Hoping to go home Wed or Thurs Pain Location: No Pain Reported Mental Status Patient Orientation: Normal For Age Attachments: Other-See Comments (mask while out of room) Transfers SCALE: Activities may be completed with or without assistive devices. 5-Ngmrmyipqo-bgwmuzy completes the activity by him/herself with no assistance from a helper. 5-Set-up or Clean-up Assistance-helper sets up or cleans up; patient completes activity. [place] assists only prior to or following the activity. 4-Supervision or Touching Assistance-helper provides verbal cues and/or touching/steadying and/or contact guard assistance as patient completes activity. Assistance may be provided throughout the activity or intermittently. 3-Partial/Moderate Assistance-helper does LESS THAN HALF the effort. [place] lifts, holds or supports trunk or limbs, but provides less than half the effort. 2-Substantial/Maximal Assistance-helper does MORE THAN HALF the effort. [place] lifts or holds trunk or limbs and provides more than half the effort. 1-Mnenfgujm-wsdboy does ALL the effort. Patient does none of the effort to complete the activity. Or, the assistance of 2 or more helpers is required for the patient to complete the activity. If activity was not attempted, code reason: 7-Patient Refused. 9-Not Applicable-not attempted and the patient did not perform the activity before the current illness, exacerbation or injury. 10-Not Attempted due to Environmental Limitations-(lack of equipment, weather restraints, etc.). 88-Not Attempted due to Medical Conditions or Safety Concerns. Sit to Stand (QC): 6 Chair/Bxx-yx-Wxuki Xfer(QC): 6 Toilet Transfer (QC): 6 Weight Bearing Full Weight Bearing Full Weight Bearing Gait Training Does the Patient Walk?: Yes Walk 10 feet (QC): 6 Walk 50 ft with 2 Turns(QC): 6 Gait Persons Needed: 1 Gait Assistive Device: FWW good control and use of device, pt. stops approx every 60 to 80 ft for rest, dyspnea noted but resolves wit rest, pt. denies SOB. Wheelchair Training Wheel 50 ft with 2 turns (QC): 6 Wheel 150 ft (QC): 6 Type of Wheelchair: Manual Exercises Seated Therapy Exercises: Ankle pumps, Sit to stand, Long arc quads, Hip flex ion, Hip abd/add Seated Reps: 15 NuStep Minutes: 10 NuStep Workload: 4 Treatments leg presses on Nustep x10 Assessment Current Status: Good Progress gives full effort, good progress in all areas of Rx PT Short Term Goals Short Term Goals Time Frame: Sep 11, 2020 Roll Left & Right: 6 Sit to lyin Lying to sitting on side of be: 6 Sit to stand: 5 Chair/vhj-ms-slrfl transfer: 5 Toilet transfer: 5 Picking up objects: 4 PT Exhaust Emissions Automotive Technician Goals Residential Goals PT Residential Goals Time Frame: Sep 18, 2020 Roll Left & Right (QC): 6 Sit to Lying (QC): 6 Lying-Sitting on Side/Bed(QC): 6 Sit to Stand (QC): 6 Chair/Enp-wx-Hcvek Xfer(QC): 6 Toilet Transfer (QC): 6 Car Transfer (QC): 6 Does the Patient Walk: Yes Walk 10 feet (QC): 6 Walk 50ft with 2 Turns (QC): 6 Walk 150 ft (QC): 6 Walking 10ft on Uneven Surface: 6 1 Step (curb) (QC): 6 4 Steps (QC): 6 12 Steps (QC): 88 Picking up an Object (QC): 88 Does the Pt use WC or Scooter?: Yes Wheel 50 feet with 2 turns (QC: 6 Type: Manual Wheel 150 feet: 6 PT Plan Treatment/Plan Treatment Plan: Continue Plan of Care Treatment Plan: Bed Mobility, Education, Functional Activity Maira, Functional Strength, Group Therapy, Gait, Safety, Therapeutic Exercise, Transfers Treatment Duration: Sep 18, 2020 Frequency: Modified Program (IRF) (28/05) Estimated Hrs Per Day: 1.5 hours per day Patient and/or Family Agrees t: Yes Safety Risks/Education Patient Education: Gait Training, Transfer Techniques, W/C Management, Disease Process, Safety Issues Teaching Recipient: Patient Teaching Methods: Demonstration, Discussion Response to Teaching: Verbalize Understanding, Return Demonstration Time/GCodes Time In: 1115 Time Out: 1200 Total Billed Treatment Time: 45 Total Billed Treatment 1,GT15m,EX15m,FA15m CONSTANCE MAO PTA Sep 06, 2020 12:12
[2020-09-06 16:11] VITALS: BP 183/74
[2020-09-06] MEDS: FAMOTIDINE 20 MG (PEPCID) TABLET PO SCH (20:33)
[2020-09-06] MEDS: MAGNESIUM OXIDE (MAG-OX)400 MG TAB PO SCH (20:34)
[2020-09-07] MEDS: inSUlin ASPART (NovoLOG) 1 UNIT/0.01 ML (CHARGE PER UNIT) SC SCH ×4 (05:58→20:11)
[2020-09-07 06:00] VITALS: BP 163/86
[2020-09-07] MEDS: CATHETER FLUSH 10 ML SYR IV SCH ×3 (06:02→21:16)
[2020-09-07] MEDS: ENOXAPARIN 30 MG/0.3 ML (LOVENOX) SYR SC SCH (08:51)
[2020-09-07] MEDS: OMEGA 3 (FISH OIL) 1000 MG CAP PO SCH (08:51)
[2020-09-07] MEDS: DOCUSATE SODIUM 100 MG (COLACE) CAP PO SCH ×2 (08:51→20:03)
[2020-09-07] MEDS: AMIODARONE 200 MG (CORDARONE) TAB PO SCH ×2 (08:51→20:03)
[2020-09-07] MEDS: FOLIC ACID 1 MG TAB PO SCH (08:51)
[2020-09-07] MEDS: VITAMIN D3 125 MCG (5,000 UNITS) CAPSULE PO SCH (08:52)
[2020-09-07] MEDS: polyethylene glycoL POWDER 17 GM (MIRALAX) PACK PO SCH ×2 (08:52→20:03)
[2020-09-07] MEDS: meTOprolol TARTRATE 25 MG (LOPRESSOR) TABLET PO SCH (08:52)
[2020-09-07] MEDS: TORSEMIDE 20 MG (DEMADEX) TAB PO SCH (08:52)
[2020-09-07] MEDS: SENNA W/DOCUSATE (SENOKOT S) TABLET PO SCH ×2 (08:52→20:03)
[2020-09-07] MEDS: SODIUM BICARBONATE 650 MG TABLET (NON-FORMULARY) PO SCH ×2 (08:52→20:03)
[2020-09-07] MEDS: SEVELAMER CARBONATE 800 MG TABLET (RENVELA) PO SCH ×3 (08:52→16:54)
--- NOTE | 2020-09-07 11:15 | NUR ---
Dr Marcial here with new orders noted
--- NOTE | 2020-09-07 11:46 | PM&R Progress Note ---
Subjective HPI/CC On Admission Date Seen by Provider: Sep 07, 2020 Time Seen by Provider: 12:00 Subjective/Events-last exam 09/07/20: Patient did not sleep last night No hypnotic safe for her in renal failure Increased Toprol 50mg PO BID from 25mg Baseline function now 09/06/20: Dressing changes reveal good healing Did not sleep well last night and declines any meds except Melatonin Showered with help Tely maintained 09/05/20: Blood sugar [address] White Dressing changes performed Telemetry on No major issues Has talked about dialysis in the past BUN and Creatinine are very high at 124/4.5 but this chronic Bicarb is 24 Hgb 7.2 Incision looks good Settling in to inpatient rehab well Didnt sleep well Body pillow will be brought in by her family Overall settling in well Conferred with RN Reviewed therapy notes Checked meds and labs Review of Systems General: Fatigue Objective Exam Vital Signs Vital Signs Date Time Temp Pulse Resp B/P (MAP) Pulse Ox O2 Delivery O2 Flow Rate FiO2 09/07/20 13:00 82 09/07/20 09:00 Room Air 09/07/20 06:00 36.8 18 163/86 (111) 95 Capillary Refill : Less Than 3 Seconds General Appearance: No Apparent Distress, WD/WN, Chronically ill, Obese HEENT: PERRL/EOMI, Normal ENT Inspection, Pharynx Normal Neck: Full Range of Motion, Normal Inspection, Non Tender, Supple, Carotid Bruit Respiratory: Chest Non Tender, Lungs Clear, Normal Breath Sounds, No Accessory Muscle Use, No Respiratory Distress Cardiovascular: No Gallop, No JVD, Normal Peripheral Pulses, Systolic Murmur, Irregularly Irregular, Other (+2-3 BLE edema) Gastrointestinal: Normal Bowel Sounds, No Organomegaly, No Pulsatile Mass, Non Tender, Soft Rectal: Deferred Back: Normal Inspection, No CVA Tenderness, No Vertebral Tenderness Extremity: Normal Capillary Refill, Normal Inspection, Normal Range of Motion, Non Tender, No Calf Tenderness, Pedal Edema Neurologic/Psychiatric: Alert, Oriented x3, No Motor/Sensory Deficits, Normal Mood/Affect, Abnormal Gait, Motor Weakness Skin: Normal Color, Warm/Dry Lymphatic: No Adenopathy Results/Procedures Lab Patient resulted labs reviewed. FIM Transfers Therapy Code Descriptions/Definitions Functional [place] Measure: 0=Not Assessed/NA 4=Minimal Assistance 1=Total Assistance 5=Supervision or Setup 2=Maximal Assistance 6=Modified [place] 3=Moderate Assistance 7=Complete IndependenceSCALE: Activities may be completed with or without assistive devices. 0-Gmhrttrnys-rhjeuff completes the activity by him/herself with no assistance from a helper. 5-Set-up or Clean-up Assistance-helper sets up or cleans up; patient completes activity. [place] assists only prior to or following the activity. 4-Supervision or Touching Assistance-helper provides verbal cues and/or touching/steadying and/or contact guard assistance as patient completes activity. Assistance may be provided throughout the activity or intermittently. 3-Partial/Moderate Assistance-helper does LESS THAN HALF the effort. [place] lifts, holds or supports trunk or limbs, but provides less than half the effort. 2-Substantial/Maximal Assistance-helper does MORE THAN HALF the effort. [place] lifts or holds trunk or limbs and provides more than half the effort. 4-Dwjjvewma-bgnfsi does ALL the effort. Patient does none of the effort to complete the activity. Or, the assistance of 2 or more helpers is required for the patient to complete the activity. If activity was not attempted, code reason: 7-Patient Refused. 9-Not Applicable-not attempted and the patient did not perform the activity before the current illness, exacerbation or injury. 10-Not Attempted due to Environmental Limitations-(lack of equipment, weather restraints, etc.). 88-Not Attempted due to Medical Conditions or Safety Concerns. Roll Left to Right (QC): 6 Sit to Lying (QC): 3 Sit to Stand (QC): 6 Chair/Vcr-he-Wjpvh Xfer(QC): 6 Car Transfer (QC): 4 Gait Training Does the Patient Walk?: Yes Distance: 150' Walk 10 feet (QC): 6 Walk 50 ft with 2 Turns(QC): 6 Walk 150 ft (QC): 4 Walking 10ft/uneven surface-QC: 4 Gait Persons Needed: 1 Gait Assistive Device: FWW Wheelchair Training Does the Pt Use a Wheelchair?: Yes Distance: 80' Wheel 50 ft with 2 turns (QC): 6 Wheel 150 ft (QC): 6 Type of Wheelchair: Manual Stair Training #of Steps: 1 1 Step (curb) (QC): 4 4 Steps (QC): 88 12 Steps (QC): 88 Balance Picking up an Object (QC): 88 ADL-Treatment Eating (QC): 6 (Pt reports having no difficulty cutting food, bringing food to mouth, and eating at breakfast time) Oral Hygiene (QC): 6 (IND seated in w/c at sink) Shower/Bathe Self (QC): 4 Upper Body Dressing (QC): 5 Lower Body Dressing (QC): 3 On/Off Footwear (QC): 2 Toileting Hygiene (QC): 4 Toilet Transfer (QC): 4 Assessment/Plan Assessment and Plan Assess & Plan/Chief Complaint Assessment: Aortic regurgitation, aortic stenosis, ascending aortic aneurysm s/p aortic valve and ascending aorta replacement on 08/22 Neuropathy Obesity CKD HTN HLP CVA DM Hypothyroidism JW orthodoxy so refusal of blood transfusions Anemia acute blood loss type Plan: IRF protocol Monitor hgb Cardiology consultation EKG Telemetry 09/04/20: Monitor creatinine Cardiology consultation Pain control Edema management 09/05/20: Monitor edema Monitor renal function 09/06/20: Tely maintained Monitor BP 09/07/20: Monitor closely Baseline functioning now Labs in am (1) Aortic aneurysm (2) Refusal of blood transfusions as patient is Hoah[place]ism (3) Anemia (4) Hyponatremia (5) Diabetes mellitus (6) Hypertension (7) Hyperlipemia (8) Hypothyroidism (9) Renal insufficiency KRISTOPHER STEVE DO Sep 07, 2020 11:46
--- NOTE | 2020-09-07 13:01 | Cardiology Progress Note ---
Subjective Date Seen by Provider: Sep 07, 2020 Time Seen by Provider: 12:59 Subjective/Events-last exam Patient was seen at bedside, sitting comfortably, no new complaint Review of Systems General: No Chills, No Night Sweats, No Fatigue, No Malaise, No Appetite, No Other HEENT: No Head Aches, No Visual Changes, No Eye Pain, No Ear Pain, No Dysphasia, No Sinus Congestion, No Post Nasal Drip, No Sore Throat, No Other Pulmonary: No Dyspnea, No Cough, No Pleuritic Chest Pain, No Other Cardiovascular: No: Chest Pain, Palpitations, Orthopnea, Paroxysmal Noc. Dyspnea, Edema, Lt Headedness, Other Objective-Cardiology Exam Last Set of Vital Signs Vital Signs 09/07/20 09/07/20 09/07/20 06:00 07:00 09:00 Temp 36.8 Pulse 76 Resp 18 B/P (MAP) 163/86 (111) Pulse Ox 95 O2 Delivery Room Air Capillary Refill : Less Than 3 Seconds I&O Intake and Output 09/07/20 00:00 Intake Total 2150 ml Balance 2150 ml Intake Oral 2150 ml # Voids 8 General: Alert, Oriented X3, Cooperative HEENT: Atraumatic, PERRLA Neck: Supple, No JVD, No Thyromegaly Lungs: Clear to Auscultation, Normal Air Movement Heart: Regular Rate, Normal S1, Normal S2, No Murmurs Abdomen: Normal Bowel Sounds, Soft, No Tenderness, No Hepatosplenomegaly, No Masses Extremities: No Clubbing, No Cyanosis, Normal Pulses, No Tenderness/Swelling, Other (peripheral edema) Skin: No Rashes, No Breakdown, No Significant Lesion Neuro: Normal Gait, Normal Speech, Strength at 5/5 X4 Ext, Normal Tone, Sensation Intact Psych/Mental Status: Mental Status NL, Mood NL A/P-Cardiology Admission Diagnosis Bicuspid aortic valve stenosis, status post aortic valve replacement Ascending aortic aneurysm, status post replacement Atrial fibrillation Acute on chronic kidney disease Assessment/Plan Bicuspid aortic valve stenosis, aortic regurgitation, ascending aortic aneurysm, status post aortic valve and AAA replacement done on August 22 at [facility] in [place]. Dressing is clean dry and intact. We will continue to monitor. Anemia, hemoglobin 7.2 on September 04, 2020. Patient is Jehovah witness, does not allow blood products, continue to monitor, followed and managed by primary care physician Atrial fibrillation, currently maintained on amiodarone 200 mg twice daily. Currently rate controlled atrial fibrillation, unable to tolerate oral anticoagulation at this time secondary to her anemia. Patient's primary c d area supervisor is Dr. Felix Jackson on chronic kidney disease, patient reports she has stage IV chronic continue disease follows with Dr. Lynn. Patient did require hemodialysis in the past, Continue to monitor renal function. Hypertension, poorly controlled, I will increase metoprolol to 50 mg twice daily and monitor tolerance and response Hyperlipidemia, continue to monitor lipids outpatient Diabetes mellitus, managed per medical services Hypothyroidism, managed by medical services. History of CVA in the past Obesity Clinical Quality Measures DVT/VTE Risk/Contraindication: Risk Factor Score Per Nursin RFS Level Per Nursing on Admit: 4+=Very High RICHARD LIN MD Sep 07, 2020 13:01
[2020-09-07 17:15] VITALS: BP 185/78
[2020-09-07 20:00] VITALS: BP 188/82
[2020-09-07] MEDS: MAGNESIUM OXIDE (MAG-OX)400 MG TAB PO SCH (20:03)
[2020-09-07] MEDS: meTOprolol TARTRATE 50 MG (LOPRESSOR) TAB PO SCH (20:03)
[2020-09-07] MEDS: FAMOTIDINE 20 MG (PEPCID) TABLET PO SCH (20:08)
--- NOTE | 2020-09-07 20:10 | NUR ---
PEPCID 40 MG WOULD NOT SCAN, BUT WAS GIVEN TO PATIENT.
--- NOTE | 2020-09-07 21:00 | NUR ---
STATES ONLY PAIN IS INCISIONAL PAIN WITH COUGHING. 2+ LOWER EXTREMITY EDEMA NOTED AND ENCOURAGED TO START WEARING LIA HOSE IN AM. ALSO AGREED TO WEAR [employer] TONIGHT. HYPERTENSIVE AND MEDICATED WITH TOPROL.
[2020-09-08 05:23] VITALS: BP 175/74
[2020-09-08 05:30] LABS: BASOPHILS % (AUTO) 0 % (0-10); EOSINOPHILS # (AUTO) 0.3 10^3/uL (0.0-0.3); EOSINOPHILS % (AUTO) 3 % (0-10); HEMATOCRIT 23 % (35-52); HEMOGLOBIN 7.1 g/dL (11.5-16.0); LYMPHOCYTES # (AUTO) 1.7 10^3/uL (1.0-4.0); LYMPHOCYTES % (AUTO) 19 % (12-44); MEAN CORPUSCULAR HEMOGLOBIN 29 pg (25-34); MEAN CORPUSCULAR HGB CONC 31 g/dL (32-36); MEAN CORPUSCULAR VOLUME 93 fL (80-99); MEAN PLATELET VOLUME 9.7 fL (9.0-12.2); MONOCYTES # (AUTO) 0.9 10^3/uL (0.0-1.0); MONOCYTES % (AUTO) 10 % (0-12); NEUTROPHILS # (AUTO) 5.8 10^3/uL (1.8-7.8); NEUTROPHILS % (AUTO) 67 % (42-75); PLATELET COUNT 310 10^3/uL (130-400); WHITE BLOOD COUNT 8.6 10^3/uL (4.3-11.0)
--- NOTE | 2020-09-08 05:49 | PM&R Progress Note ---
Subjective HPI/CC On Admission Date Seen by Provider: Sep 08, 2020 Time Seen by Provider: 09:00 Subjective/Events-last exam 09/08/20: Pt back to baseline AF to normal sinus rhythm on telemetry Edema is still an issue Hgb 7.1 Creatinine 3.96 closer to her baseline GFR 12 Toprol 50mg twice daily tolerated Systolic BP is usually 150s 09/07/20: Patient did not sleep last night No hypnotic safe for her in renal failure Increased Toprol 50mg PO BID from 25mg Baseline function now 09/06/20: Dressing changes reveal good healing Did not sleep well last night and declines any meds except Melatonin Showered with help Tely maintained 09/05/20: Blood sugar [address] White Dressing changes performed Telemetry on No major issues Has talked about dialysis in the past BUN and Creatinine are very high at 124/4.5 but this chronic Bicarb is 24 Hgb 7.2 Incision looks good Settling in to inpatient rehab well Didnt sleep well Body pillow will be brought in by her family Overall settling in well Conferred with RN Reviewed therapy notes Checked meds and labs Review of Systems General: Fatigue, Malaise Objective Exam Vital Signs Vital Signs Date Time Temp Pulse Resp B/P (MAP) Pulse Ox O2 Delivery O2 Flow Rate FiO2 09/09/20 01:00 66 09/08/20 20:59 Room Air 09/08/20 20:20 118/53 (74) 09/08/20 18:07 36.4 16 100 Capillary Refill : Less Than 3 Seconds General Appearance: No Apparent Distress, WD/WN, Chronically ill, Obese HEENT: PERRL/EOMI, Normal ENT Inspection, Pharynx Normal Neck: Full Range of Motion, Normal Inspection, Non Tender, Supple, Carotid Bruit Respiratory: Chest Non Tender, Lungs Clear, Normal Breath Sounds, No Accessory Muscle Use, No Respiratory Distress Cardiovascular: No Gallop, No JVD, Normal Peripheral Pulses, Systolic Murmur, Irregularly Irregular, Other (+2-3 BLE edema) Gastrointestinal: Normal Bowel Sounds, No Organomegaly, No Pulsatile Mass, Non Tender, Soft Rectal: Deferred Back: Normal Inspection, No CVA Tenderness, No Vertebral Tenderness Extremity: Normal Capillary Refill, Normal Inspection, Normal Range of Motion, Non Tender, No Calf Tenderness, Pedal Edema Neurologic/Psychiatric: Alert, Oriented x3, No Motor/Sensory Deficits, Normal Mood/Affect, Abnormal Gait, Motor Weakness Skin: Normal Color, Warm/Dry Lymphatic: No Adenopathy Results/Procedures Lab Patient resulted labs reviewed. FIM Transfers Therapy Code Descriptions/Definitions Functional [place] Measure: 0=Not Assessed/NA 4=Minimal Assistance 1=Total Assistance 5=Supervision or Setup 2=Maximal Assistance 6=Modified [place] 3=Moderate Assistance 7=Complete IndependenceSCALE: Activities may be completed with or without assistive devices. 8-Etdzhspqwg-jnknnuy completes the activity by him/herself with no assistance from a helper. 5-Set-up or Clean-up Assistance-helper sets up or cleans up; patient completes activity. [place] assists only prior to or following the activity. 4-Supervision or Touching Assistance-helper provides verbal cues and/or touching/steadying and/or contact guard assistance as patient completes activity. Assistance may be provided throughout the activity or intermittently. 3-Partial/Moderate Assistance-helper does LESS THAN HALF the effort. [place] lifts, holds or supports trunk or limbs, but provides less than half the effort. 2-Substantial/Maximal Assistance-helper does MORE THAN HALF the effort. [place] lifts or holds trunk or limbs and provides more than half the effort. 3-Bjxriuall-bzbqbj does ALL the effort. Patient does none of the effort to complete the activity. Or, the assistance of 2 or more helpers is required for the patient to complete the activity. If activity was not attempted, code reason: 7-Patient Refused. 9-Not Applicable-not attempted and the patient did not perform the activity before the current illness, exacerbation or injury. 10-Not Attempted due to Environmental Limitations-(lack of equipment, weather restraints, etc.). 88-Not Attempted due to Medical Conditions or Safety Concerns. Roll Left to Right (QC): 6 Sit to Lying (QC): 3 Sit to Stand (QC): 6 Chair/Noc-td-Uouhm Xfer(QC): 6 Car Transfer (QC): 4 Gait Training Does the Patient Walk?: Yes Distance: 150' Walk 10 feet (QC): 6 Walk 50 ft with 2 Turns(QC): 6 Walk 150 ft (QC): 4 Walking 10ft/uneven surface-QC: 4 Gait Persons Needed: 1 Gait Assistive Device: FWW Wheelchair Training Does the Pt Use a Wheelchair?: Yes Distance: 80' Wheel 50 ft with 2 turns (QC): 6 Wheel 150 ft (QC): 6 Type of Wheelchair: Manual Stair Training #of Steps: 1 1 Step (curb) (QC): 4 4 Steps (QC): 88 12 Steps (QC): 88 Balance Picking up an Object (QC): 88 ADL-Treatment Eating (QC): 6 (Pt reports having no difficulty cutting food, bringing food to mouth, and eating at breakfast time) Oral Hygiene (QC): 6 (IND seated in w/c at sink) Shower/Bathe Self (QC): 4 Upper Body Dressing (QC): 5 Lower Body Dressing (QC): 3 On/Off Footwear (QC): 2 Toileting Hygiene (QC): 4 Toilet Transfer (QC): 4 Assessment/Plan Assessment and Plan Assess & Plan/Chief Complaint Assessment: Aortic regurgitation, aortic stenosis, ascending aortic aneurysm s/p aortic va lve and ascending aorta replacement on 08/22 Neuropathy Obesity CKD HTN HLP CVA DM Hypothyroidism JW advent so refusal of blood transfusions Anemia acute blood loss type Plan: IRF protocol Monitor hgb Cardiology consultation EKG Telemetry 09/04/20: Monitor creatinine Cardiology consultation Pain control Edema management 09/05/20: Monitor edema Monitor renal function 09/06/20: Tely maintained Monitor BP 09/07/20: Monitor closely Baseline functioning now Labs in am 09/08/20: Monitor potassium DC Tuesday (1) Aortic aneurysm (2) Refusal of blood transfusions as patient is Adventist (3) Anemia (4) Hyponatremia (5) Diabetes mellitus (6) Hypertension (7) Hyperlipemia (8) Hypothyroidism (9) Renal insufficiency KRISTOPHER STEVE DO Sep 08, 2020 05:49
[2020-09-08 05:52] LABS: POTASSIUM 5.6 MMOL/L (3.6-5.0)
[2020-09-08 05:54] LABS: TOTAL PROTEIN 6.8 GM/DL (6.4-8.2)
[2020-09-08 05:56] LABS: BILIRUBIN,TOTAL 0.3 MG/DL (0.1-1.0)
[2020-09-08 05:58] LABS: CREATININE SERUM 3.96 MG/DL (0.60-1.30)
[2020-09-08] MEDS: inSUlin ASPART (NovoLOG) 1 UNIT/0.01 ML (CHARGE PER UNIT) SC SCH ×4 (05:59→21:41)
[2020-09-08] MEDS: CATHETER FLUSH 10 ML SYR IV SCH ×3 (06:04→20:25)
--- NOTE | 2020-09-08 06:45 | NUR ---
DR. STEVE INFORMED OF POTASSIUM 5.6. NO NEW ORDERS AT THIS TIME.
[2020-09-08] MEDS: polyethylene glycoL POWDER 17 GM (MIRALAX) PACK PO SCH ×2 (08:07→20:23)
[2020-09-08] MEDS: SENNA W/DOCUSATE (SENOKOT S) TABLET PO SCH ×2 (08:07→20:23)
[2020-09-08] MEDS: ENOXAPARIN 30 MG/0.3 ML (LOVENOX) SYR SC SCH (08:07)
[2020-09-08] MEDS: OMEGA 3 (FISH OIL) 1000 MG CAP PO SCH (08:07)
[2020-09-08] MEDS: TORSEMIDE 20 MG (DEMADEX) TAB PO SCH (08:07)
[2020-09-08] MEDS: SODIUM BICARBONATE 650 MG TABLET (NON-FORMULARY) PO SCH ×2 (08:07→20:22)
[2020-09-08] MEDS: VITAMIN D3 125 MCG (5,000 UNITS) CAPSULE PO SCH (08:07)
[2020-09-08] MEDS: SEVELAMER CARBONATE 800 MG TABLET (RENVELA) PO SCH ×3 (08:07→18:05)
[2020-09-08] MEDS: AMIODARONE 200 MG (CORDARONE) TAB PO SCH ×2 (08:07→20:21)
[2020-09-08] MEDS: FOLIC ACID 1 MG TAB PO SCH (08:07)
[2020-09-08] MEDS: DOCUSATE SODIUM 100 MG (COLACE) CAP PO SCH ×2 (08:07→20:22)
[2020-09-08] MEDS: meTOprolol TARTRATE 50 MG (LOPRESSOR) TAB PO SCH ×2 (08:07→20:22)
--- NOTE | 2020-09-08 08:57 | Cardiology Progress Note ---
Subjective Date Seen by Provider: Sep 08, 2020 Time Seen by Provider: 08:50 Subjective/Events-last exam Patient sitting in chair. Denies any chest pain or dyspnea. Review of Systems General: No Chills, No Night Sweats, No Fatigue, No Malaise, No Appetite, No Other HEENT: No Head Aches, No Visual Changes, No Eye Pain, No Ear Pain, No Dysphasia, No Sinus Congestion, No Post Nasal Drip, No Sore Throat, No Other Pulmonary: No Dyspnea, No Cough, No Pleuritic Chest Pain, No Other Cardiovascular: No: Chest Pain, Palpitations, Orthopnea, Paroxysmal Noc. Dyspnea, Edema, Lt Headedness, Other Objective-Cardiology Exam Last Set of Vital Signs Vital Signs 09/08/20 09/08/20 09/08/20 05:23 06:40 09:00 Temp 37.2 Pulse 70 Resp 18 B/P (MAP) 175/74 (107) Pulse Ox 95 O2 Delivery Room Air Capillary Refill : Less Than 3 Seconds I&O Intake and Output 09/08/20 00:00 Intake Total 1550 ml Balance 1550 ml Intake Oral 1550 ml # Voids 11 # Bowel Movements 1 General: Alert, Oriented X3, Cooperative HEENT: Atraumatic, PERRLA Neck: Supple, No JVD, No Thyromegaly Lungs: Clear to Auscultation, Normal Air Movement Heart: Regular Rate, Normal S1, Normal S2, No Murmurs Abdomen: Normal Bowel Sounds, Soft, No Tenderness, No Hepatosplenomegaly, No Masses Extremities: No Clubbing, No Cyanosis, Normal Pulses, No Tenderness/Swelling, Other (peripheral edema) Skin: No Rashes, No Breakdown, No Significant Lesion Neuro: Normal Gait, Normal Speech, Strength at 5/5 X4 Ext, Normal Tone, Sensation Intact Psych/Mental Status: Mental Status NL, Mood NL Results Lab Laboratory Tests 09/08/20 05:08 A/P-Cardiology Admission Diagnosis Bicuspid aortic valve stenosis, status post aortic valve replacement Ascending aortic aneurysm, status post replacement Atrial fibrillation Acute on chronic kidney disease Assessment/Plan Bicuspid aortic valve stenosis, aortic regurgitation, ascending aortic aneurysm, status post aortic valve and TAA replacement done on August 22 at [facility] in [place]. Dressing is clean dry and intact. We will continue to monitor. Anemia, hemoglobin 7.1. Patient is Jehovah witness, does not allow blood products, continue to monitor, followed and managed by primary care physician Atrial fibrillation, currently maintained on amiodarone 200 mg twice daily. Currently rate controlled atrial fibrillation, unable to tolerate oral anticoagulation at this time secondary to her anemia. 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 Felix Jackson on chronic kidney disease, patient reports she has stage IV chronic continue disease follows with Dr. Lynn. Patient did require hemodialysis in the past, Continue to monitor renal function. Hypertension, poorly controlled, metoprolol recently increased. Add clonidine 0.1 mg twice a day and monitor tolerance and response Hyperlipidemia, continue to monitor lipids outpatient Diabetes mellitus, managed per medical services Hypothyroidism, managed by medical services. History of CVA in the past Obesity Patient was seen and evaluated with Claire, examination performed, management plan was discussed, agree with the current scribed note, I made few changes to the note using Italic font Blood pressure is poorly controlled, adding clonidine, monitor blood pressure Reporting improvement in the swelling. Clinical Quality Measures DVT/VTE Risk/Contraindication: Risk Factor Score Per Nursin RFS Level Per Nursing on Admit: 4+=Very High CLAIRE KAPADIA Sep 08, 2020 8:57 am RICHARD LIN MD Sep 08, 2020 11:52 am
--- NOTE | 2020-09-08 09:58 | Occupational Ther Daily Note ---
OT Current Status-Daily Note Subjective Pt seated in recliner, agreeable to OT tx with focus on showering/ADLs. Pt did not verbalize pain during tx. Pt indicates she feels like she is ready to go home, and is completing tasks how she was prior to hospitalization. Mental Status/Objective Patient Orientation: Person, Place, Time, Situation ADL-Treatment Therapy Code Descriptions/Definitions Functional [place] Measure: 0=Not Assessed/NA 4=Minimal Assistance 1=Total Assistance 5=Supervision or Setup 2=Maximal Assistance 6=Modified [place] 3=Moderate Assistance 7=Complete IndependenceSCALE: Activities may be completed with or without assistive devices. 1-Aqzovmpsmf-jxtsvwe completes the activity by him/herself with no assistance from a helper. 5-Set-up or Clean-up Assistance-helper sets up or cleans up; patient completes activity. [place] assists only prior to or following the activity. 4-Supervision or Touching Assistance-helper provides verbal cues and/or touching/steadying and/or contact guard assistance as patient completes activity. Assistance may be provided throughout the activity or intermittently. 3-Partial/Moderate Assistance-helper does LESS THAN HALF the effort. [place] lifts, holds or supports trunk or limbs, but provides less than half the effort. 2-Substantial/Maximal Assistance-helper does MORE THAN HALF the effort. [place] lifts or holds trunk or limbs and provides more than half the effort. 3-Poxxtjxgo-spscyi does ALL the effort. Patient does none of the effort to complete the activity. Or, the assistance of 2 or more helpers is required for the patient to complete the activity. If activity was not attempted, code reason: 7-Patient Refused. 9-Not Applicable-not attempted and the patient did not perform the activity before the current illness, exacerbation or injury. 10-Not Attempted due to Environmental Limitations-(lack of equipment, weather restraints, etc.). 88-Not Attempted due to Medical Conditions or Safety Concerns. Eating (QC): 6 (Pt indicates no difficulty with breakfast, she is able to cut food, open containers, and bring utensils to mouth.) Oral Hygiene (QC): 4 (Supervision, pt completed task standing at sink) Bathing Location: L Arm, R Arm, L Upper Leg, R Upper Leg, L Lower Leg (including foot), R Lower Leg (including foot), Chest, Abdomen, Buttocks, Perineal Area Shower/Bathe Self (QC): 5 (set up assist, pt able to wash/dry all parts, standing at GBs to wash/dry periarea and buttocks) Upper Body Dressing (QC): 6 (Independent seated EOB) Lower Body Dressing (QC): 4 (Supervision in stand at FWW, pt able to doff/john underwear and pants.) On/Off Footwear: 6 (Pt able to don/doff gripper socks. Pt declined donning shoes due to swelling in feet.) Toileting Hygiene (QC): 6 (Pt able to manage clothing and perform hygiene independently.) Toilet Transfer (QC): 6 (Independent transfer on/off standard toilet.) Other Treatment Pt seated in recliner, transferred sit to stand independently, then ambulated to restroom and onto toilet using FWW. Pt completed toileting and doffed clothes, then used FWW to transfer to [place]. Pt completed showering seated on SC, and standing at GBs to wash/dry buttocks/periarea. Pt transferred to toilet where she completed grooming tasks including brushing hair and putting hair gel in, applying lotion/cream under abdominal folds, and washing her face. Pt donned underwear and socks at toilet. Pt stood at FWW, ambulating to sink where she brushed her teeth, then used FWW to go to EOB. Pt donned shirt and pants, then transferred to recliner. Post OT tx, pt seated in recliner, call light in reach and all needs met. Education OT Patient Education: Correct positioning, Modified ADL techniques, Progress toward Goal/Update tx plan, Purpose of tx/functional activities Teaching Recipient: Patient Teaching Methods: Discussion Response to Teaching: Verbalize Understanding OT [employer] Law Clerk Goals [employer] Law Clerk Goals Time Frame: Sep 19, 2020 Eating (QC): 6 Oral Hygiene (QC): 6 Toileting Hygiene (QC): 6 Shower/Bathe Self (QC): 6 Upper Body Dressing (QC): 6 Lower Body Dressing (QC): 6 On/Off Footwear (QC): 6 Additional Goals: 1-Demonstrate ADL Tasks, 2-Verbalize Understanding, 3- ImproveStrength/Maira 1=Demonstrate adherence to instructed precautions during ADL tasks. 2=Patient will verbalize/demonstrate understanding of assistive devices/modifications for ADL. 3=Patient will improve strength/tolerance for activity to enable patient to perform ADL's. OT Education/Plan Problem List/Assessment Assessment: Decreased Activ Tolerance, Decreased UE Strength, Impaired I ADL's, Impaired Self-Care Skills Discharge Recommendations Plan/Recommendations: Continue POC Treatment Plan/Plan of Care Patient would benefit from OT for education, treatment and training to promote independence in ADL's, mobility, safety and/or upper extremity function for ADL's. Plan of Care: ADL Retraining, Functional Mobility, Group Exercise/Act as Ind, UE Funct Exercise/Act Treatment Duration: Sep 19, 2020 Frequency: Modified Program (IRF) (28/05) Estimated Hrs Per Day: 1.5 hours per day Agreement: Yes Rehab Potential: Good Time/GCodes Start Time: 09:45 Stop Time: 10:45 Total Time Billed (hr/min): 60 Billed Treatment Time 1, ADL 4 ZARIA BRYANT OT Sep 08, 2020 09:58
--- NOTE | 2020-09-08 11:06 | Progress Note ---
SNOW [employer]REAL MED STUDENT 09/08/20 1106: Progress Note S: Patient has soreness around incision site that is no worse than yesterday. She reports that she is "getting back to her normal self." She had questions about her blood pressure management. Had no other complaints this morning. O: BP running 175/74 Potassium increased to 5.6 from 4.8 yesterday Physical Exam: Inspiratory wheezing noted on bilateral auscultation of lungs, does not appear to be in respiratory distress. LE edema bilateral no calf tenderness. No other acute exam findings. A/P Metoprolol increased from 25 to 50 BID per cardiology. Will continue to monitor her BP today with the dosage increase Can start working on discharge plan as patient subjectively and objectively is returning to baseline No acute dialysis needs at this time but will monitor electrolytes daily as patient has needed dialysis in [place] post-op. Will need to ensure she has good outpatient lab and physician follow up to monitor her kidney function. ASHLEY STEVE DO 09/09/20 0525: Supervisory-Addendum Brief Verification & Attestation Participated in pt care: history, MDM, physical Personally performed: exam, history, MDM, supervision of care Care discussed with: Medical Student Procedures: n/a Results interpretation: Verified all documentation Verification and Attestation of Medical Student E/M Service A medical student performed and documented this service in my presence. I reviewed and verified all information documented by the medical student and made modifications to such information, when appropriate. I personally performed the physical exam and medical decision making. Ashley Steve, Sep 09, 2020,05:25 SNOW [employer]REAL MED STUDENT Sep 08, 2020 11:06 ASHLEY STEVE DO Sep 09, 2020 05:25
[2020-09-08] MEDS ORDERED: SOD POLYSTERENE 15 GM/60 ML (KAYEXALATE) UNIT DOSE PO NR (11:15)
[2020-09-08] MEDS: cloNIDine 0.1 MG (CATAPRES) TAB PO SCH ×2 (11:55→20:21)
--- NOTE | 2020-09-08 11:58 | Physical Therapy Daily Note ---
PT Daily Note-Current Subjective Pt. states she feels well except she isnt sleeping well and is ready to go home. Pt. requests to be up adlib in her room to go to toilet etc Pain Numeric Pain Scale: 4 Location: No Pain Reported, Medial Location Body Site: Back Pain Description: Ache Comment: c/o pain briefly [id number] TRFing sit to sup and rolling Mental Status Patient Orientation: Normal For Age Attachments: Other-See Comments (mask while out of room, telemetry) Transfers SCALE: Activities may be completed with or without assistive devices. 5-Zujhsxlotb-vgiitmn completes the activity by him/herself with no assistance f rom a helper. 5-Set-up or Clean-up Assistance-helper sets up or cleans up; patient completes activity. Ambler assists only prior to or following the activity. 4-Supervision or Touching Assistance-helper provides verbal cues and/or touching/steadying and/or contact guard assistance as patient completes activity. Assistance may be provided throughout the activity or intermittently. 3-Partial/Moderate Assistance-helper does LESS THAN HALF the effort. Ambler lifts, holds or supports trunk or limbs, but provides less than half the effort. 2-Substantial/Maximal Assistance-helper does MORE THAN HALF the effort. Ambler lifts or holds trunk or limbs and provides more than half the effort. 7-Gwoefxbpj-jmyeao does ALL the effort. Patient does none of the effort to complete the activity. Or, the assistance of 2 or more helpers is required for the patient to complete the activity. If activity was not attempted, code reason: 7-Patient Refused. 9-Not Applicable-not attempted and the patient did not perform the activity before the current illness, exacerbation or injury. 10-Not Attempted due to Environmental Limitations-(lack of equipment, weather restraints, etc.). 88-Not Attempted due to Medical Conditions or Safety Concerns. Roll Left & Right (QC): 6 Sit to Lying (QC): 6 Lying to Sitting/Side of Bed(Q: 6 Sit to Stand (QC): 6 Chair/Rdu-jc-Qillr Xfer(QC): 6 Toilet Transfer (QC): 6 Weight Bearing Full Weight Bearing Full Weight Bearing Gait Training Does the Patient Walk?: Yes Walk 10 feet (QC): 6 Walk 50 ft with 2 Turns(QC): 6 Walk 150 ft (QC): 6 Gait Persons Needed: 1 Gait Assistive Device: FWW ready to rest after 150ft but recovers quickly Exercises Supine Ex: Rolling, Heel Slides, Hip abd/add Supine Reps: 10 Seated Therapy Exercises: Ankle pumps, Sit to stand, Long arc quads, Hip flexion, Hip abd/add Seated Reps: 15 NuStep Minutes: 10 NuStep Workload: 3 Treatments toileted indep Assessment Current Status: Good Progress advanced pt to up ad sydni in her room for toileting etc PT Short Term Goals Short Term Goals Time Frame: Sep 11, 2020 Roll Left & Right: 6 Sit to lyin Lying to sitting on side of be: 6 Sit to stand: 5 Chair/wgl-gi-gklqs transfer: 5 Toilet transfer: 5 Picking up objects: 4 PT Assistant Customer Service Manager Goals Shelter Goals PT Shelter Goals Time Frame: Sep 18, 2020 Roll Left & Right (QC): 6 Sit to Lying (QC): 6 Lying-Sitting on Side/Bed(QC): 6 Sit to Stand (QC): 6 Chair/Alu-hp-Cykvd Xfer(QC): 6 Toilet Transfer (QC): 6 Car Transfer (QC): 6 Does the Patient Walk: Yes Walk 10 feet (QC): 6 Walk 50ft with 2 Turns (QC): 6 Walk 150 ft (QC): 6 Walking 10ft on Uneven Surface: 6 1 Step (curb) (QC): 6 4 Steps (QC): 6 12 Steps (QC): 88 Picking up an Object (QC): 88 Does the Pt use WC or Scooter?: Yes Wheel 50 feet with 2 turns (QC: 6 Type: Manual Wheel 150 feet: 6 PT Plan Treatment/Plan Treatment Plan: Continue Plan of Care Treatment Plan: Bed Mobility, Education, Functional Activity Maira, Functional Strength, Group Therapy, Gait, Safety, Therapeutic Exercise, Transfers Treatment Duration: Sep 18, 2020 Frequency: Modified Program (IRF) (28/05) Estimated Hrs Per Day: 1.5 hours per day Patient and/or Family Agrees t: Yes Safety Risks/Education Patient Education: Gait Training, Transfer Techniques, Correct Positioning, Disease Process, Safety Issues Teaching Recipient: Patient Teaching Methods: Demonstration, Discussion Response to Teaching: Verbalize Understanding, Return Demonstration, Reinforcement Needed Time/GCodes Time In: 1100 Time Out: 1200 Total Billed Treatment Time: 60 Total Billed Treatment 1,GT15m,EX35m,FA10m CONSTANCE MAO CANDY POLISHER Sep 08, 2020 11:58
--- NOTE | 2020-09-08 14:39 | Therapy Group Daily Note ---
Therapy Daily Group Note Patient Education Topic Other List Below (memory strategies) Session Ratio (pt:therapist): 4:1 Goal of Session: Memory Strategies Goal Met for this Session: Yes Pt Benefit of Group: F/U Use of Strategies @Home, Improved Cognition, Socialization Other/Notes Pt. participated in group PT OT session today . Pt. was assisted in ambulating from her room with FWW. Pt. was donned with mask and social spacing was insitu. Pts. introduced themselves, shared their home town and a childhood memory. Education was shared regarding long and short term memory , memory strategies and association. Memory challenge game involving matching images, that had been revealed then turned over . This patient was very good at this challenge and expressed that she enjoyed this activity. Pts. shared their own memory strategies that seem to work for them. Pt. to room after group session, call veliz at hand, needs met. Start Time: 13:00 Stop Time: 14:15 Total Billed Treatment Time: 75 Total Billed Treatment 1,GRP CONSTANCE MAO PROTOZOOLOGIST Sep 08, 2020 14:39
--- NOTE | 2020-09-08 15:37 | NUR ---
CM/SS DISCHARGE PLANNING Patient has expressed to multiple team members she believes she is at her baseline level of functioning and desires to return home. Physician and therapists are in agreement. Interviewed patient for final discharge planning, she indicates no new needs. She was ambulating in room with FWW and toileting self. Physician indicated no [facility] orders, patient updated. 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 Landis at [facility] for September 11, 1515. Added to patient discharge instructions. Also provided post op visit with Dr. Jorge Luis Marin in [facility], patient is already aware of this appointment. Followup in a.m. for any new developments.
[2020-09-08 18:07] VITALS: BP 151/72
[2020-09-08 20:20] VITALS: BP 118/53
[2020-09-08] MEDS: FAMOTIDINE 20 MG (PEPCID) TABLET PO SCH (20:22)
[2020-09-08] MEDS: MAGNESIUM OXIDE (MAG-OX)400 MG TAB PO SCH (20:22)
[2020-09-08] MEDS ORDERED: METO50TA15 PO (21:32)
[2020-09-08] MEDS ORDERED: CLN.1T PO (21:32)
[2020-09-09 05:32] VITALS: BP 147/65
--- NOTE | 2020-09-09 05:37 | PM&R Progress Note ---
Subjective HPI/CC On Admission Date Seen by Provider: Sep 09, 2020 Subjective/Events-last exam 09/08/20: Pt back to baseline AF to normal sinus rhythm on telemetry Edema is still an issue Hgb 7.1 Creatinine 3.96 closer to her baseline GFR 12 Toprol 50mg twice daily tolerated Systolic BP is usually 150s 09/07/20: Patient did not sleep last night No hypnotic safe for her in renal failure Increased Toprol 50mg PO BID from 25mg Baseline function now 09/06/20: Dressing changes reveal good healing Did not sleep well last night and declines any meds except Melatonin Showered with help Tely maintained 09/05/20: Blood sugar [address] White Dressing changes performed Telemetry on No major issues Has talked about dialysis in the past BUN and Creatinine are very high at 124/4.5 but this chronic Bicarb is 24 Hgb 7.2 Incision looks good Settling in to inpatient rehab well Didnt sleep well Body pillow will be brought in by her family Overall settling in well Conferred with RN Reviewed therapy notes Checked meds and labs Objective Exam Vital Signs Vital Signs Date Time Temp Pulse Resp B/P (MAP) Pulse Ox O2 Delivery O2 Flow Rate FiO2 09/09/20 05:32 37.4 70 16 147/65 (92) 96 Room Air Capillary Refill : Less Than 3 Seconds General Appearance: No Apparent Distress, WD/WN, Chronically ill, Obese HEENT: PERRL/EOMI, Normal ENT Inspection, Pharynx Normal Neck: Full Range of Motion, Normal Inspection, Non Tender, Supple, Carotid Bruit Respiratory: Chest Non Tender, Lungs Clear, Normal Breath Sounds, No Accessory Muscle Use, No Respiratory Distress Cardiovascular: No Gallop, No JVD, Normal Peripheral Pulses, Systolic Murmur, Irregularly Irregular, Other (+2-3 BLE edema) Gastrointestinal: Normal Bowel Sounds, No Organomegaly, No Pulsatile Mass, Non Tender, Soft Rectal: Deferred Back: Normal Inspection, No CVA Tenderness, No Vertebral Tenderness Extremity: Normal Capillary Refill, Normal Inspection, Normal Range of Motion, Non Tender, No Calf Tenderness, Pedal Edema Neurologic/Psychiatric: Alert, Oriented x3, No Motor/Sensory Deficits, Normal Mood/Affect, Abnormal Gait, Motor Weakness Skin: Normal Color, Warm/Dry Lymphatic: No Adenopathy Results/Procedures Lab Patient resulted labs reviewed. FIM Transfers Therapy Code Descriptions/Definitions Functional [place] Measure: 0=Not Assessed/NA 4=Minimal Assistance 1=Total Assistance 5=Supervision or Setup 2=Maximal Assistance 6=Modified [place] 3=Moderate Assistance 7=Complete IndependenceSCALE: Activities may be completed with or without assistive devices. 7-Hvjyuqslkf-xfukxfz completes the activity by him/herself with no assistance from a helper. 5-Set-up or Clean-up Assistance-helper sets up or cleans up; patient completes activity. Abbot assists only prior to or following the activity. 4-Supervision or Touching Assistance-helper provides verbal cues and/or touching/steadying and/or contact guard assistance as patient completes activity. Assistance may be provided throughout the activity or intermittently. 3-Partial/Moderate Assistance-helper does LESS THAN HALF the effort. Abbot lifts, holds or supports trunk or limbs, but provides less than half the effort. 2-Substantial/Maximal Assistance-helper does MORE THAN HALF the effort. Abbot lifts or holds trunk or limbs and provides more than half the effort. 9-Tnoumoezl-dgzdvh does ALL the effort. Patient does none of the effort to comp lete the activity. Or, the assistance of 2 or more helpers is required for the patient to complete the activity. If activity was not attempted, code reason: 7-Patient Refused. 9-Not Applicable-not attempted and the patient did not perform the activity before the current illness, exacerbation or injury. 10-Not Attempted due to Environmental Limitations-(lack of equipment, weather restraints, etc.). 88-Not Attempted due to Medical Conditions or Safety Concerns. Roll Left to Right (QC): 6 Sit to Lying (QC): 6 Sit to Stand (QC): 6 Chair/Psu-wa-Kgmib Xfer(QC): 6 Car Transfer (QC): 4 Gait Training Does the Patient Walk?: Yes Distance: 150' Walk 10 feet (QC): 6 Walk 50 ft with 2 Turns(QC): 6 Walk 150 ft (QC): 6 Walking 10ft/uneven surface-QC: 4 Gait Persons Needed: 1 Gait Assistive Device: FWW Wheelchair Training Does the Pt Use a Wheelchair?: Yes Distance: 80' Wheel 50 ft with 2 turns (QC): 6 Wheel 150 ft (QC): 6 Type of Wheelchair: Manual Stair Training #of Steps: 1 1 Step (curb) (QC): 4 4 Steps (QC): 88 12 Steps (QC): 88 Balance Picking up an Object (QC): 88 ADL-Treatment Eating (QC): 6 (Pt indicates no difficulty with breakfast, she is able to cut food, open containers, and bring utensils to mouth.) Oral Hygiene (QC): 4 (Supervision, pt completed task standing at sink) Bathing Location: L Arm, R Arm, L Upper Leg, R Upper Leg, L Lower Leg (including foot), R Lower Leg (including foot), Chest, Abdomen, Buttocks, Perineal Area Shower/Bathe Self (QC): 5 (set up assist, pt able to wash/dry all parts, standing at GBs to wash/dry periarea and buttocks) Upper Body Dressing (QC): 6 (Independent seated EOB) Lower Body Dressing (QC): 4 (Supervision in stand at FWW, pt able to doff/john underwear and pants.) On/Off Footwear (QC): 6 (Pt able to don/doff gripper socks. Pt declined donning shoes due to swelling in feet.) Toileting Hygiene (QC): 6 (Pt able to manage clothing and perform hygiene independently.) Toilet Transfer (QC): 6 (Independent transfer on/off standard toilet.) Assessment/Plan Assessment and Plan Assess & Plan/Chief Complaint Assessment: Aortic regurgitation, aortic stenosis, ascending aortic aneurysm s/p aortic valve and ascending aorta replacement on 08/22 Neuropathy Obesity CKD HTN HLP CVA DM Hypothyroidism JW sikhism so refusal of blood transfusions Anemia acute blood loss type Plan: IRF protocol Monitor hgb Cardiology consultation EKG Telemetry 09/04/20: Monitor creatinine Cardiology consultation Pain control Edema management 09/05/20: Monitor edema Monitor renal function 09/06/20: Tely maintained Monitor BP 09/07/20: Monitor closely Baseline functioning now Labs in am 09/08/20: Monitor potassium DC Tuesday (1) Aortic aneurysm (2) Refusal of blood transfusions as patient is Religious (3) Anemia (4) Hyponatremia (5) Diabetes mellitus (6) Hypertension (7) Hyperlipemia (8) Hypothyroidism (9) Renal insufficiency KRISTOPHER STEVE DO Sep 09, 2020 05:37
[2020-09-09] MEDS: inSUlin ASPART (NovoLOG) 1 UNIT/0.01 ML (CHARGE PER UNIT) SC SCH (06:16)
[2020-09-09] MEDS: CATHETER FLUSH 10 ML SYR IV SCH (06:17)
--- NOTE | 2020-09-09 08:32 | Discharge Summary ---
Diagnosis/Chief Complaint Date of Admission Sep 03, 2020 at 16:28 Date of Discharge Discharge Date: Sep 09, 2020 Discharge Diagnosis Assessment: Aortic regurgitation, aortic stenosis, ascending aortic aneurysm s/p aortic valve and ascending aorta replacement on 08/22 Neuropathy Obesity CKD HTN HLP CVA DM Hypothyroidism JW oriental orthodox so refusal of blood transfusions Anemia acute blood loss type Plan: IRF protocol Monitor hgb Cardiology consultation EKG Telemetry 09/04/20: Monitor creatinine Cardiology consultation Pain control Edema management 09/05/20: Monitor edema Monitor renal function 09/06/20: Tely maintained Monitor BP 09/07/20: Monitor closely Baseline functioning now Labs in am 09/08/20: Monitor potassium DC Tuesday (1) Aortic aneurysm (2) Refusal of blood transfusions as patient is Buddhism (3) Anemia (4) Hyponatremia (5) Diabetes mellitus (6) Hypertension (7) Hyperlipemia (8) Hypothyroidism (9) Renal insufficiency Discharge Summary Discharge Physical Examination Allergies: Coded Allergies: No Allergy Information Available (Unverified , 09/02/20) Vitals & I&Os Vital Signs Date Time Temp Pulse Resp B/P (MAP) Pulse Ox O2 Delivery O2 Flow Rate FiO2 09/09/20 11:22 37.4 65 16 147/65 96 Room Air General Appearance: Alert, Oriented X3, Cooperative Respiratory: Clear to Auscultation Cardiovascular: Regular Rate Psych/Mental Status: Mental Status NL Hospital Course Was the Problem List Reviewed?: Yes Hospital course: Pt had an uneventful seven day hospital course after she was admitted for valve- replacement and aneurysm repair in [place]. Overall she did very well, had no significant issues during hospital stay other than chronic renal failure near dialysis for long-term was something that we monitored closely. Overall she did well, she was able to participate in all therapy and was back to her baseline activity and she was deemed stable for discharge. Labs (last 24 hrs) Laboratory Tests 09/03/20 17:37: Glucometer 275H 09/03/20 21:01: Glucometer 260H 09/04/20 05:16: Glucometer 174H 09/04/20 05:32: Sodium Level 137, Potassium Level 4.8, Chloride Level 100, Carbon Dioxide Level 24, Anion Gap 13, Blood Urea Nitrogen 124*H, Creatinine 4.51H, Estimat Glomerular Filtration Rate 10, BUN/Creatinine Ratio 27, Glucose Level 163H, Calcium Level 8.8, Corrected Calcium 9.7, Total Bilirubin 0.3, Aspartate Amino Transf (AST/SGOT) 9, Alanine Aminotransferase (ALT/SGPT) 9, Alkaline Phosphatase 121, Total Protein 6.7, Albumin 2.9L 09/04/20 05:35: White Blood Count 11.2H, Red Blood Count 2.51L, Hemoglobin 7.2L, Hematocrit 23L, Mean Corpuscular Volume 92, Mean Corpuscular Hemoglobin 29, Mean Corpuscular Hemoglobin Concent 31L, Red Cell Distribution Width 16.4H, Platelet Count 315, Mean Platelet Volume 10.0, Immature Granulocyte % (Auto) 1, Neutrophils (%) (Auto) 69, Lymphocytes (%) (Auto) 18, Monocytes (%) (Auto) 10, Eosinophils (%) (Auto) 3, Basophils (%) (Auto) 0, Neutrophils # (Auto) 7.7, Lymphocytes # (Auto) 2.0, Monocytes # (Auto) 1.1H, Eosinophils # (Auto) 0.3, Basophils # (Auto) 0.0, Immature Granulocyte # (Auto) 0.1 09/04/20 10:56: Glucometer 211H 09/04/20 15:29: Glucometer 200H 09/04/20 20:09: Glucometer 189H 09/05/20 05:49: Glucometer 160H 09/05/20 11:00: Glucometer 206H 09/05/20 15:25: Glucometer 191H 09/05/20 20:05: Glucometer 194H 09/06/20 06:07: Glucometer 175H 09/06/20 11:02: Glucometer 228H 09/06/20 15:47: Glucometer 209H 09/06/20 20:09: Glucometer 184H 09/07/20 05:31: Glucometer 163H 09/07/20 10:50: Glucometer 186H 09/07/20 15:50: Glucometer 188H 09/07/20 20:05: Glucometer 164H 09/08/20 05:08: White Blood Count 8.6, Red Blood Count 2.49L, Hemoglobin 7.1L, Hematocrit 23L, Mean Corpuscular Volume 93, Mean Corpuscular Hemoglobin 29, Mean Corpuscular Hemoglobin Concent 31L, Red Cell Distribution Width 16.3H, Platelet Count 310, Mean Platelet Volume 9.7, Immature Granulocyte % (Auto) 1, Neutrophils (%) (Auto) 67, Lymphocytes (%) (Auto) 19, Monocytes (%) (Auto) 10, Eosinophils (%) (Auto) 3, Basophils (%) (Auto) 0, Neutrophils # (Auto) 5.8, Lymphocytes # (Auto) 1.7, Monocytes # (Auto) 0.9, Eosinophils # (Auto) 0.3, Basophils # (Auto) 0.0, Immature Granulocyte # (Auto) 0.1, Sodium Level 140, Potassium Level 5.6H, Chloride Level 107, Carbon Dioxide Level 23, Anion Gap 10, Blood Urea Nitrogen 82H, Creatinine 3.96#H, Estimat Glomerular Filtration Rate 12, BUN/Creatinine Ratio 21, Glucose Level 135H, Calcium Level 9.0, Corrected Calcium 9.8, Total Bilirubin 0.3, Aspartate Amino Transf (AST/SGOT) 14, Alanine Aminotransferase (ALT/SGPT) 6, Alkaline Phosphatase 102, Total Protein 6.8, Albumin 3.0L 09/08/20 11:00: Glucometer 187H 09/08/20 15:10: Glucometer 177H 09/08/20 21:34: Glucometer 192H 09/09/20 05:55: Glucometer 145H 09/09/20 09:23: Glucometer 206H 09/09/20 09:40: Sodium Level 138, Potassium Level 4.9, Chloride Level 105, Carbon Dioxide Level 24, Anion Gap 9, Blood Urea Nitrogen 72H, Creatinine 3.79H, Estimat Glomerular Filtration Rate 12, BUN/Creatinine Ratio 19, Glucose Level 196H, Calcium Level 9.0 Pending Labs Laboratory Tests 09/03/20 17:37: Glucometer 275 09/03/20 21:01: Glucometer 260 09/04/20 05:16: Glucometer 174 09/04/20 05:32: Sodium Level 137, Potassium Level 4.8, Chloride Level 100, Carbon Dioxide Level 24, Anion Gap 13, Blood Urea Nitrogen 124, Creatinine 4.51, Estimat Glomerular Filtration Rate 10, BUN/Creatinine Ratio 27, Glucose Level 163, Calcium Level 8.8, Corrected Calcium 9.7, Total Bilirubin 0.3, Aspartate Amino Transf (AST/SGOT) 9, Alanine Aminotransferase (ALT/SGPT) 9, Alkaline Phosphatase 121, Total Protein 6.7, Albumin 2.9 09/04/20 05:35: White Blood Count 11.2, Red Blood Count 2.51, Hemoglobin 7.2, Hematocrit 23, Mean Corpuscular Volume 92, Mean Corpuscular Hemoglobin 29, Mean Corpuscular Hemoglobin Concent 31, Red Cell Distribution Width 16.4, Platelet Count 315, Mean Platelet Volume 10.0, Immature Granulocyte % (Auto) 1, Neutrophils (%) (Auto) 69, Lymphocytes (%) (Auto) 18, Monocytes (%) (Auto) 10, Eosinophils (%) (Auto) 3, Basophils (%) (Auto) 0, Neutrophils # (Auto) 7.7, Lymphocytes # (Auto) 2.0, Monocytes # (Auto) 1.1, Eosinophils # (Auto) 0.3, Basophils # (Auto) 0.0, Immature Granulocyte # (Auto) 0.1 09/04/20 10:56: Glucometer 211 09/04/20 15:29: Glucometer 200 09/04/20 20:09: Glucometer 189 09/05/20 05:49: Glucometer 160 09/05/20 11:00: Glucometer 206 09/05/20 15:25: Glucometer 191 09/05/20 20:05: Glucometer 194 09/06/20 06:07: Glucometer 175 09/06/20 11:02: Glucometer 228 09/06/20 15:47: Glucometer 209 09/06/20 20:09: Glucometer 184 09/07/20 05:31: Glucometer 163 09/07/20 10:50: Glucometer 186 09/07/20 15:50: Glucometer 188 09/07/20 20:05: Glucometer 164 09/08/20 05:08: White Blood Count 8.6, Red Blood Count 2.49, Hemoglobin 7.1, Hematocrit 23, Mean Corpuscular Volume 93, Mean Corpuscular Hemoglobin 29, Mean Corpuscular Hemoglobin Concent 31, Red Cell Distribution Width 16.3, Platelet Count 310, Mean Platelet Volume 9.7, Immature Granulocyte % (Auto) 1, Neutrophils (%) (Auto) 67, Lymphocytes (%) (Auto) 19, Monocytes (%) (Auto) 10, Eosinophils (%) (Auto) 3, Basophils (%) (Auto) 0, Neutrophils # (Auto) 5.8, Lymphocytes # (Auto) 1.7, Monocytes # (Auto) 0.9, Eosinophils # (Auto) 0.3, Basophils # (Auto) 0.0, Immature Granulocyte # (Auto) 0.1, Sodium Level 140, Potassium Level 5.6, Chloride Level 107, Carbon Dioxide Level 23, Anion Gap 10, Blood Urea Nitrogen 82, Creatinine 3.96, Estimat Glomerular Filtration Rate 12, BUN/Creatinine Ratio 21, Glucose Level 135, Calcium Level 9.0, Corrected Calcium 9.8, Total Bilirubin 0.3, Aspartate Amino Transf (AST/SGOT) 14, Alanine Aminotransferase (ALT/SGPT) 6, Alkaline Phosphatase 102, Total Protein 6.8, Albumin 3.0 09/08/20 11:00: Glucometer 187 09/08/20 15:10: Glucometer 177 09/08/20 21:34: Glucometer 192 09/09/20 05:55: Glucometer 145 09/09/20 09:23: Glucometer 206 09/09/20 09:40: Sodium Level 138, Potassium Level 4.9, Chloride Level 105, Carbon Dioxide Level 24, Anion Gap 9, Blood Urea Nitrogen 72, Creatinine 3.79, Estimat Glomerular Filtration Rate 12, BUN/Creatinine Ratio 19, Glucose Level 196, Calcium Level 9.0 Discharge Home Medications: Active Scripts Active Lantus (Insulin Glargine,Hum.rec.anlog) 100 Unit/1 Ml Vial 35 Unit SQ PM 30 Days Lantus (Insulin Glargine,Hum.rec.anlog) 100 Unit/1 Ml Vial 20 Unit SQ AM 30 Days Novolog (Insulin Aspart) 100 Unit/1 Ml Susp 30 Unit SQ PM 30 Days Novolog (Insulin Aspart) 100 Unit/1 Ml Susp 20 Unit SQ AM 30 Days Torsemide 20 Mg Tablet 20 Mg PO DAILY 30 Days Renvela (Sevelamer Carbonate) 800 Mg Tablet 800 Mg PO TIDWM 30 Days [Folic Acid] 1 Tab 1 Mg PO DAILY 30 Days START ON 09-04-2020 Amiodarone HCl 200 Mg Tablet 200 Mg PO BID 30 Days Metoprolol Tartrate 50 Mg Tablet 50 Mg PO BID Clonidine HCl 0.1 Mg Tablet 0.1 Mg PO BID Reported Victoza 2-Wilmer (Liraglutide) 0.6 Mg/0.1 Ml Pen.injctr 1.2 Mg SQ DAILY Sodium Bicarbonate 650 Mg Tablet 650 Mg PO BID [place] 3 1,000 mg Softgel ([place]-3 Fatty Acids/Fish Oil) 1 Each Capsule 1 Each PO DAILY Magnesium Oxide 400 Mg Tablet 400 Mg PO HS Acid Financial Accounting Analyst (FAMOTIDINE) (Famotidine) 20 Mg Tablet 40 Mg PO HS Vitamin D3 (Cholecalciferol (Vitamin D3)) 125 Mcg Tablet 125 Mcg PO DAILY Atorvastatin Calcium 20 Mg Tablet 20 Mg PO DAILY Tylenol Extra Strength (Acetaminophen) 500 Mg Tablet 1,000 Mg PO Q6H PRN Instructions to patient/family Please see electronic discharge instructions given to patient. Diagnosis/Problems Diagnosis/Problems (1) Aortic aneurysm (2) Refusal of blood transfusions as patient is Buddhism (3) Anemia (4) Hyponatremia (5) Diabetes mellitus (6) Hypertension (7) Hyperlipemia (8) Hypothyroidism (9) Renal insufficiency Clinical Quality Measures DVT/VTE Risk/Contraindication: Risk Factor Score Per Nursin RFS Level Per Nursing on Admit: 4+=Very High KRISTOPHER STEVE DO Sep 09, 2020 08:32
--- NOTE | 2020-09-09 08:40 | Occupational Ther Daily Note ---
OT Current Status-Daily Note Subjective Pt seated in chair upon OT arrival, states she is ready to go home today. Agreeable to OT tx. ADL-Treatment Therapy Code Descriptions/Definitions Functional Mcdonald Measure: 0=Not Assessed/NA 4=Minimal Assistance 1=Total Assistance 5=Supervision or Setup 2=Maximal Assistance 6=Modified Mcdonald 3=Moderate Assistance 7=Complete IndependenceSCALE: Activities may be completed with or without assistive devices. 6-Muijwkiyom-rmojrcp completes the activity by him/herself with no assistance from a helper. 5-Set-up or Clean-up Assistance-helper sets up or cleans up; patient completes activity. [place] assists only prior to or following the activity. 4-Supervision or Touching Assistance-helper provides verbal cues and/or touching/steadying and/or contact guard assistance as patient completes activity. Assistance may be provided throughout the activity or intermittently. 3-Partial/Moderate Assistance-helper does LESS THAN HALF the effort. [place] lifts, holds or supports trunk or limbs, but provides less than half the effort. 2-Substantial/Maximal Assistance-helper does MORE THAN HALF the effort. [place] lifts or holds trunk or limbs and provides more than half the effort. 2-Mhczirkhv-nwsrbi does ALL the effort. Patient does none of the effort to complete the activity. Or, the assistance of 2 or more helpers is required for the patient to complete the activity. If activity was not attempted, code reason: 7-Patient Refused. 9-Not Applicable-not attempted and the patient did not perform the activity before the current illness, exacerbation or injury. 10-Not Attempted due to Environmental Limitations-(lack of equipment, weather restraints, etc.). 88-Not Attempted due to Medical Conditions or Safety Concerns. Eating (QC): 6 (Pt indicates no difficulty with eating breakfast.) Oral Hygiene (QC): 6 (IND standing at sink) Shower/Bathe Self (QC): 7 (Pt declined showering on this date, pt required set up assist with task yesterday.) Upper Body Dressing (QC): 6 (independent seated EOB) Lower Body Dressing (QC): 6 (Independent, pt completed task seated EOB, and standing at FWW to manage pants up.) On/Off Footwear: 3 (Pt able to doff gripper socks, don regular socks and shoes. Pt required min A with donning L shoe due to swelling in L foot.) Toileting Hygiene (QC): 6 (Independent with hygiene and clothing management) Toilet Transfer (QC): 6 (independent transfer on/off toilet.) Other Treatment Pt seated in chair, declined showering today as she completed task yesterday. Pt agreeable to changing clothes and brushing teeth. Pt stood from chair, using FWW to ambulate into restroom mod I. Pt doffed clothes seated on toilet, then donned clean brief and completed toileting. Pt stood from toilet, managing brief up at FWW, then stood at sink to brush her teeth independently. Pt used FWW to transfer to EOB, pt donned shirt, pants, socks and shoes sitting on EOB, requiring min A with footwear due to swelling in L foot. Pt able to take rest breaks as need throughout tx. Post OT tx, pt seated EOB, call light in reach and all needs met, PT present for tx. Education OT Patient Education: Correct positioning, Modified ADL techniques, Progress toward Goal/Update tx plan, Purpose of tx/functional activities Teaching Recipient: Patient Teaching Methods: Discussion Response to Teaching: Verbalize Understanding OT Custodial Goals Custodial Goals Time Frame: Sep 19, 2020 Eating (QC): 6 Oral Hygiene (QC): 6 Toileting Hygiene (QC): 6 Shower/Bathe Self (QC): 6 Upper Body Dressing (QC): 6 Lower Body Dressing (QC): 6 On/Off Footwear (QC): 6 Additional Goals: 1-Demonstrate ADL Tasks, 2-Verbalize Understanding, 3- ImproveStrength/Maira 1=Demonstrate adherence to instructed precautions during ADL tasks. 2=Patient will verbalize/demonstrate understanding of assistive devices/modifications for ADL. 3=Patient will improve strength/tolerance for activity to enable patient to perform ADL's. OT Education/Plan Problem List/Assessment Assessment: Decreased Activ Tolerance, Decreased UE Strength, Impaired I ADL's Discharge Recommendations Plan/Recommendations: Continue POC Treatment Plan/Plan of Care Patient would benefit from OT for education, treatment and training to promote independence in ADL's, mobility, safety and/or upper extremity function for ADL's. Plan of Care: ADL Retraining, Functional Mobility, Group Exercise/Act as Ind, UE Funct Exercise/Act Treatment Duration: Sep 19, 2020 Frequency: Modified Program (IRF) (28/05) Estimated Hrs Per Day: 1.5 hours per day Agreement: Yes Rehab Potential: Good Time/GCodes Start Time: 08:00 Stop Time: 08:25 Total Time Billed (hr/min): 25 Billed Treatment Time 1, ADL 2 ZARIA BRYANT OT Sep 09, 2020 08:40
--- NOTE | 2020-09-09 08:45 | Physical Therapy Daily Note ---
PT Daily Note-Current Subjective Pt presents sitting EOB at conclusion of OT treatment. Pt agrees to PT. Pt voices no complaints of pain. Appearance At conclusion of PT treatment pt is supervised into recliner where she is left with access to tray, call button, and all needs have been met. Mental Status Patient Orientation: Person, Place, Time, Eyes Open, Situation Transfers SCALE: Activities may be completed with or without assistive devices. 3-Xlgessoqjx-ipdvufd completes the activity by him/herself with no assistance from a helper. 5-Set-up or Clean-up Assistance-helper sets up or cleans up; patient completes activity. [place] assists only prior to or following the activity. 4-Supervision or Touching Assistance-helper provides verbal cues and/or touching/steadying and/or contact guard assistance as patient completes activity. Assistance may be provided throughout the activity or intermittently. 3-Partial/Moderate Assistance-helper does LESS THAN HALF the effort. [place] lifts, holds or supports trunk or limbs, but provides less than half the effort. 2-Substantial/Maximal Assistance-helper does MORE THAN HALF the effort. [place] lifts or holds trunk or limbs and provides more than half the effort. 2-Froxqmatu-nkbsci does ALL the effort. Patient does none of the effort to complete the activity. Or, the assistance of 2 or more helpers is required for the patient to complete the activity. If activity was not attempted, code reason: 7-Patient Refused. 9-Not Applicable-not attempted and the patient did not perform the activity before the current illness, exacerbation or injury. 10-Not Attempted due to Environmental Limitations-(lack of equipment, weather restraints, etc.). 88-Not Attempted due to Medical Conditions or Safety Concerns. Roll Left & Right (QC): 6 Sit to Lying (QC): 6 Lying to Sitting/Side of Bed(Q: 6 Sit to Stand (QC): 6 Chair/Jdr-xg-Iygzy Xfer(QC): 6 Toilet Transfer (QC): 6 Car Transfer (QC): 6 (Transferred to car with one leg stepped into floorboard and then sitting before bring other leg into vehicle) Weight Bearing Full Weight Bearing Full Weight Bearing Gait Training Does the Patient Walk?: Yes Distance: 150' Walk 10 feet (QC): 4 Walk 50 ft with 2 Turns(QC): 4 Walk 150 ft (QC): 4 Walking 10ft/uneven surface-QC: 4 Gait Persons Needed: 1 Gait Assistive Device: FWW SBA. Pt experienced no LOB. Slow but steady ambulation. Wheelchair Training Does the Pt Use a Wheelchair?: No Stair Training Stair Training: Handrails/: uses walker #of Steps: 1 1 Step (curb) (QC): 4 Stairs: Pattern: Step to CGA, patient had some difficulty going up and down 1 step, no more were done for safety. Balance Picking up an Object (QC): 88 Treatments Functional mobility Assessment Current Status: Good Progress Pt has improved ambulation, bed mobility; pt has increased endurance with activity. PT Short Term Goals Short Term Goals Time Frame: Sep 11, 2020 Roll Left & Right: 6 Sit to lyin Lying to sitting on side of be: 6 Sit to stand: 5 Chair/gdw-ow-wuxyb transfer: 5 Toilet transfer: 5 Picking up objects: 4 PT Medical Lead Goals Medical Lead Goals PT Medical Lead Goals Time Frame: Sep 18, 2020 Roll Left & Right (QC): 6 Sit to Lying (QC): 6 Lying-Sitting on Side/Bed(QC): 6 Sit to Stand (QC): 6 Chair/Nbu-qg-Qjoiq Xfer(QC): 6 Toilet Transfer (QC): 6 Car Transfer (QC): 6 Does the Patient Walk: Yes Walk 10 feet (QC): 6 Walk 50ft with 2 Turns (QC): 6 Walk 150 ft (QC): 6 Walking 10ft on Uneven Surface: 6 1 Step (curb) (QC): 6 4 Steps (QC): 6 12 Steps (QC): 88 Picking up an Object (QC): 88 Does the Pt use WC or Scooter?: Yes Wheel 50 feet with 2 turns (QC: 6 Type: Manual Wheel 150 feet: 6 PT Plan Problem List Problem List: Activity Tolerance, Functional Strength, Safety, Balance, Gait, Transfer, Bed Mobility, ROM Treatment/Plan Treatment Plan: Continue Plan of Care Treatment Plan: Bed Mobility, Education, Functional Activity Maira, Functional Strength, Group Therapy, Gait, Safety, Therapeutic Exercise, Transfers Treatment Duration: Sep 18, 2020 Frequency: Modified Program (IRF) (28/05) Estimated Hrs Per Day: 1.5 hours per day Patient and/or Family Agrees t: Yes Safety Risks/Education Patient Education: Gait Training, Transfer Techniques, Steps, Correct Positioning, Safety Issues Teaching Recipient: Patient Teaching Methods: Demonstration, Discussion Response to Teaching: Reinforcement Needed Time/GCodes Time In: 824 Time Out: 834 Total Billed Treatment Time: 10 Total Billed Treatment 1 visit FA Neeru' LITTLE LOMAS PT Sep 09, 2020 08:45
--- NOTE | 2020-09-09 08:47 | Therapy Team Discharge Summary ---
Therapy Discharge Summary Discharge Recommendations Date of Discharge Occupational Therapy Pt admittted to ARU with dx of aortic valve and ascending aorta replacement. At PLOF, pt was independent with ADLs and functional mobility using FWW around the house, and manual w/c or motorized scooter in the community. At evaluation, pt was independent with feeding, required set up assist wtih oral care, min A showering, set up upper body dressing, min A lower body dressing, mod A footwear, and CGA toileting. OT tx with focus on increasing independence and safety with ADLS as well as increasing BUE strength and functional endurance. At discharge, pt required set up assistance wtih showering, min A with footwear due to swelling in L foot, and she was independent with all other ADLs. Pt made good progress towards goals, meeting all goals except showering and footwear goal. Pt is discharging from facility on this date, thus d/c from OT at this time. Decreased Activ Tolerance, Decreased UE Strength, Impaired I ADL's PT Long-Term Goals Twisting Frame Changer Goals PT Twisting Frame Changer Goals Time Frame: Sep 18, 2020 Roll Left to Right (QC): 6 Sit to Lying (QC): 6 Lying-Sitting on Side/Bed(QC): 6 Sit to Stand (QC): 6 Chair/Xip-cs-Jnaqt Xfer(QC): 6 Car Transfer (QC): 6 Does the Patient Walk: Yes Walk 10 feet (QC): 6 Walk 10ft-Uneven Surface(QC): 6 Walk 50ft with 2 Turns (QC): 6 Walk 150 ft (QC): 6 Does the Pt use WC or Scooter?: Yes Wheel 50 feet with 2 turns (QC: 6 1 Step (curb) (QC): 6 4 Steps (QC): 6 12 Steps (QC): 88 Picking up an Object (QC): 88 OT Twisting Frame Changer Goals Twisting Frame Changer Goals Time Frame: Sep 19, 2020 Eating (QC): 6 (met) Oral Hygiene (QC): 6 (met) Shower/Bathe Self (QC): 6 (not met, set up) Upper Body Dressing (QC): 6 (met) Lower Body Dressing (QC): 6 (met) On/Off Footwear (QC): 6 (not met, min A) Toileting Hygiene (QC): 6 (met) Toilet/Commode Transfer (QC): 6 (met) Additional Goals: 1-Demonstrate ADL Tasks, 2-Verbalize Understanding, 3-ImproveStrength/Maira 1=Demonstrate adherence to instructed precautions during ADL tasks. 2=Patient will verbalize/demonstrate understanding of assistive devices/modifications for ADL. 3=Patient will improve strength/tolerance for activity to enable patient to perform ADL's. ZARIA BRYANT OT Sep 09, 2020 08:47
[2020-09-09] MEDS: SODIUM BICARBONATE 650 MG TABLET (NON-FORMULARY) PO SCH (08:49)
[2020-09-09] MEDS: VITAMIN D3 125 MCG (5,000 UNITS) CAPSULE PO SCH (08:49)
[2020-09-09] MEDS: FOLIC ACID 1 MG TAB PO SCH (08:49)
[2020-09-09] MEDS: SEVELAMER CARBONATE 800 MG TABLET (RENVELA) PO SCH (08:49)
[2020-09-09] MEDS: SENNA W/DOCUSATE (SENOKOT S) TABLET PO SCH (08:49)
[2020-09-09] MEDS: OMEGA 3 (FISH OIL) 1000 MG CAP PO SCH (08:49)
[2020-09-09] MEDS: cloNIDine 0.1 MG (CATAPRES) TAB PO SCH (08:50)
[2020-09-09] MEDS: meTOprolol TARTRATE 50 MG (LOPRESSOR) TAB PO SCH (08:50)
[2020-09-09] MEDS: TORSEMIDE 20 MG (DEMADEX) TAB PO SCH (08:50)
[2020-09-09] MEDS: DOCUSATE SODIUM 100 MG (COLACE) CAP PO SCH (08:50)
[2020-09-09] MEDS: AMIODARONE 200 MG (CORDARONE) TAB PO SCH (08:50)
[2020-09-09] MEDS: ENOXAPARIN 30 MG/0.3 ML (LOVENOX) SYR SC SCH (08:53)
[2020-09-09] MEDS: polyethylene glycoL POWDER 17 GM (MIRALAX) PACK PO SCH (08:53)
--- NOTE | 2020-09-09 08:53 | Cardiology Progress Note ---
Subjective Date Seen by Provider: Sep 09, 2020 Time Seen by Provider: 08:25 Subjective/Events-last exam patient is sitting up at bedside, denies any chest pain, denies any palpitation, continues to have bilateral peripheral edema Objective-Cardiology Exam Last Set of Vital Signs Vital Signs 09/09/20 05:32 Temp 37.4 Pulse 70 Resp 16 B/P (MAP) 147/65 (92) Pulse Ox 96 O2 Delivery Room Air Capillary Refill : Less Than 3 Seconds I&O Intake and Output 09/09/20 00:00 Intake Total 1500 ml Balance 1500 ml Intake Oral 1500 ml # Voids 8 # Bowel Movements 3 General: Alert, Oriented X3, Cooperative HEENT: Atraumatic, PERRLA Neck: Supple, No JVD, No Thyromegaly Lungs: Clear to Auscultation, Normal Air Movement Heart: Regular Rate, Normal S1, Normal S2, No Murmurs Abdomen: Normal Bowel Sounds, Soft, No Tenderness, No Hepatosplenomegaly, No Masses Extremities: No Clubbing, No Cyanosis, Normal Pulses, No Tenderness/Swelling, Other (peripheral edema) Skin: No Rashes, No Breakdown, No Significant Lesion Neuro: Normal Gait, Normal Speech, Strength at 5/5 X4 Ext, Normal Tone, Sensation Intact Psych/Mental Status: Mental Status NL, Mood NL Results Lab A/P-Cardiology Admission Diagnosis Bicuspid aortic valve stenosis, status post aortic valve replacement Ascending aortic aneurysm, status post replacement Atrial fibrillation Acute on chronic kidney disease Assessment/Plan Bicuspid aortic valve stenosis, aortic regurgitation, ascending aortic aneurysm, status post aortic valve and TAA replacement done on August 22 at [facility] in [place]. Dressing is clean dry and intact. We will continue to monitor. Anemia, hemoglobin 7.1. Patient is Jehovah witness, does not allow blood products, continue to monitor, followed and managed by primary care physician Atrial fibrillation, currently maintained on amiodarone 200 mg twice daily. Currently rate controlled atrial fibrillation, unable to tolerate oral anticoagulation at this time secondary to her anemia. Patient's primary sewage plant operator is Dr. Felix Jackson on chronic kidney disease, patient reports she has stage IV chronic continue disease follows with Dr. Lynn. Patient did require hemodialysis in the past, Continue to monitor renal function. Hypertension, poorly controlled, metoprolol recently increased. Clonidine added yesterday, continue to monitor. Hyperlipidemia, continue to monitor lipids outpatient Hyperkalemia, given kayexelate yesterday, continue to monitor electrolytes. Diabetes mellitus, managed per medical services Hypothyroidism, managed by medical services. History of CVA in the past Obesity Okay for discharge from cardiac standpoint, follow-up with Dr. Washington as an outpatient, patient also needs to follow-up with her autotransfusionist next week Patient was seen and evaluated with Claire, examination performed, management plan was discussed, agree with the current scribed note, I made few changes to the note using Italic font, patient was evaluated, feeling better, for possible discharge today. She was scheduled an appointment with her autotransfusionist within the next week and she will schedule an appointment with Dr. Washington her primary sewage plant operator Clinical Quality Measures DVT/VTE Risk/Contraindication: Risk Factor Score Per Nursin RFS Level Per Nursing on Admit: 4+=Very High CLAIRE KAPADIA Sep 09, 2020 8:53 am RICHARD LIN MD Sep 09, 2020 9:19 am
--- NOTE | 2020-09-09 08:58 | Therapy Team Discharge Summary ---
Therapy Discharge Summary Discharge Recommendations Date of Discharge Physical Therapy Patient came to rehab with repair of Thoracic Aortic Aneurism. Upon evaluation patient performed bed mobility with independence, supine <-> sit min assist, sit <-> stand and transfers with CGA, car transfer CGA, ambulated 100' with a rolling walker with CGA (including 50' with at least 2 turns of 90 degrees and 10' over an uneven surface), propelled a manual WC 150' with SBA, and went up and down 1 step using a rolling walker with CGA. Patient has been performing bed mobility and transfer training, balance and endurance training, functional strengthening, stair training, gait training, and education. Patient has made good progress but has not met her assisted goals for ambulation or stairs. Now, patient performs bed mobility and transfers with independence, ambulates 150' with a rolling walker with SBA (including 50' with at least 2 turns of 90 degrees and 10' over an uneven surface), performs a car transfer with independence, and can go up and down 1 step using a rolling walker with CGA. Patient is discharging from this facility today and will be discharged from PT at this time. Occupational Therapy Decreased Activ Tolerance, Decreased UE Strength, Impaired I ADL's PT Digital Project Coordinator Goals Digital Project Coordinator Goals PT Digital Project Coordinator Goals Time Frame: Sep 18, 2020 Roll Left to Right (QC): 6 Sit to Lying (QC): 6 Lying-Sitting on Side/Bed(QC): 6 Sit to Stand (QC): 6 Chair/Vhk-ul-Ucjyt Xfer(QC): 6 Car Transfer (QC): 6 Does the Patient Walk: Yes Walk 10 feet (QC): 6 Walk 10ft-Uneven Surface(QC): 6 Walk 50ft with 2 Turns (QC): 6 Walk 150 ft (QC): 6 Does the Pt use WC or Scooter?: Yes Wheel 50 feet with 2 turns (QC: 6 1 Step (curb) (QC): 6 4 Steps (QC): 6 12 Steps (QC): 88 Picking up an Object (QC): 88 OT Digital Project Coordinator Goals Digital Project Coordinator Goals Time Frame: Sep 19, 2020 Eating (QC): 6 (met) Oral Hygiene (QC): 6 (met) Shower/Bathe Self (QC): 6 (not met, set up) Upper Body Dressing (QC): 6 (met) Lower Body Dressing (QC): 6 (met) On/Off Footwear (QC): 6 (not met, min A) Toileting Hygiene (QC): 6 (met) Toilet/Commode Transfer (QC): 6 (met) Additional Goals: 1-Demonstrate ADL Tasks, 2-Verbalize Understanding, 3- ImproveStrength/Maira 1=Demonstrate adherence to instructed precautions during ADL tasks. 2=Patient will verbalize/demonstrate understanding of assistive devices/modifications for ADL. 3=Patient will improve strength/tolerance for activity to enable patient to perform ADL's. LITTLE LOMAS PT Sep 09, 2020 08:58
[2020-09-09 10:11] LABS: CREATININE SERUM 3.79 MG/DL (0.60-1.30); POTASSIUM 4.9 MMOL/L (3.6-5.0)
[2020-09-09] MEDS ORDERED: FOLIC ACID PO (10:16)
[2020-09-09] MEDS ORDERED: AMIO200T6 PO (10:16)
[2020-09-09] MEDS ORDERED: SEVE800T7 PO (10:16)
[2020-09-09] MEDS ORDERED: TORS20TA3 PO (10:16)
[2020-09-09] MEDS ORDERED: INSU100V16 SQ ×3 (10:26→10:27)
[2020-09-09] MEDS ORDERED: INSU100V6 SQ ×2 (10:28→10:29)
[2020-09-09 11:22] VITALS: BP 147/65
--- NOTE | 2020-09-09 11:40 | Progress Note ---
KASSY GOTTI MED STUDENT 09/09/20 1140: Progress Note Lizzie Erickson is a 60 YO female with Afib, obesity, CKD, DM, neuropathy, HTN, HLD, hypothyroidism, and CVA who came to inpatient rehab to improve strength, mobility, and stamina after aortic valve and ascending aorta replacement in [place] on 08/22. Initial assessment showed that pt was requiring supervision and minimal assistance with dressing herself, toilet hygiene, and bathing. Pt required assistance with sit to stand, transfer to toilet, and chair to bed. She was also getting fatigued and short of breath when ambulating with walker from her room to the gym and required a rest break to catch her breath. Today, pt is independently able to get dressed, eat, perform toilet hygiene, sit to stand, car transfer, bed to chair transfer, and toilet transfer without assistance. She does require some assistance with donning left shoe due to left foot swelling. Additionally, she has increased endurance when ambulating with walker and had no loss of balance. Labs were monitored throughout pt's stay, specifically creatinine and glucose given pt's hx of CKD and DM as well as hemoglobin because of pt's opposition to receiving blood products due to baptism beliefs. Cardiology was consulted and monitored pt as well. Pt feels improved and is agreeable with discharge home. ASHLEY STEVE DO 09/09/202023: Supervisory-Addendum Brief Verification & Attestation Participated in pt care: history, MDM, physical Personally performed: exam, history, MDM, supervision of care Care discussed with: Medical Student Procedures: n/a Results interpretation: Verified all documentation Verification and Attestation of Medical Student E/M Service A medical student performed and documented this service in my presence. I reviewed and verified all information documented by the medical student and made modifications to such information, when appropriate. I personally performed the physical exam and medical decision making. Ashley Steve Sep 09, 2020,20:24 KASSY GOTTI MED STUDENT Sep 09, 2020 11:40 ASHLEY STEVE DO Sep 09, 2020 20:24
--- NOTE | 2020-09-09 13:33 | NUR ---
CM/SS DISCHARGE Patient is dressed and ready to leave for home, she indicates her daughter will be here for her around 1100. Faxed discharge information and labs as requested by Dr. Landis in preparation for patient nephrology appointment later this week. Patient reminded of all upcoming appointments. Car Runner did speak with cardiac surgeon office in [place] who advised patient should not see her local canned food reconditioning inspector or begin any kind of cardiac rehabilitation until after she is assessed at her followup in [place] October 02. Patient indicated understanding. Unit RN aware of all arrangements.
== END 2020-09-09 11:00 | disposition home or self-care (01) | DRG 949 ==
PROVIDERS: ADMIT Internal Medicine; ATTEND Internal Medicine
DX: Z48.812 Encounter for surgical aftercare following surgery on the circulatory system (principal); N18.4 Chronic kidney disease, stage 4 (severe); N17.9 Acute kidney failure, unspecified; Z68.42 Body mass index [BMI] 45.0-49.9, adult; D62 Acute posthemorrhagic anemia; Z95.2 Presence of prosthetic heart valve; I48.91 Unspecified atrial fibrillation; E78.00 Pure hypercholesterolemia, unspecified; E11.40 Type 2 diabetes mellitus with diabetic neuropathy, unspecified; E11.22 Type 2 diabetes mellitus with diabetic chronic kidney disease; I12.9 Hypertensive chronic kidney disease with stage 1 through stage 4 chronic kidney disease, or unspecified chronic kidney disease; E66.9 Obesity, unspecified; R60.0 Localized edema; E78.5 Hyperlipidemia, unspecified; E03.9 Hypothyroidism, unspecified; K21.9 Gastro-esophageal reflux disease without esophagitis; M19.91 Primary osteoarthritis, unspecified site; K59.00 Constipation, unspecified; F41.9 Anxiety disorder, unspecified; F32.9 Major depressive disorder, single episode, unspecified; Z86.73 Personal history of transient ischemic attack (TIA), and cerebral infarction without residual deficits; Z90.49 Acquired absence of other specified parts of digestive tract; Z90.710 Acquired absence of both cervix and uterus; Z90.89 Acquired absence of other organs
CPT/HCPCS: 36415; 80048; 80053; 82962; 85025